=== PATIENT | male | born 1940 | race Caucasian/White ===

== ENCOUNTER 2017-06-10 16:51 | Inpatient (IN) ==
[2017-06-10] MEDS ORDERED: Acetaminophen 325 MG TABLET PO PRN (21:03)
[2017-06-10] MEDS ORDERED: Naloxone 0.4 MG/ML INJ IVP PRN (21:03)
[2017-06-10] MEDS ORDERED: Dextrose Gel 15 GM/37.5 ML TUBE PO PRN ×2 (21:07)
[2017-06-10] MEDS ORDERED: D5% in Water 1,000 ML IVC PRN (21:07)
[2017-06-10] MEDS ORDERED: *HR* Dextrose 50 % in Water (Syg) 50 ML SYRINGE IVP PRN (21:07)
[2017-06-10] MEDS ORDERED: Ipratropium/Albuterol Neb 3 ML IH PRN (21:10)
[2017-06-10] MEDS: Apixaban 5 MG TABLET PO SCH (21:44)
[2017-06-10] MEDS: Furosemide 40 MG/4 ML VIAL IVP SCH (21:44)
--- NOTE | 2017-06-10 22:38 | Internal Med History&Physical ---
Date of Encounter: 06/10/17 Time of Encounter: 20:00 Internal Medicine - H&P: HPI Chief complaint: Shortness of breath Admitted From: Intrahospital Transfer Plans for Post Hospital Care: Home History of present illness: Mr. Kim is a 76 year old male transferred from [facility]. He presented to [facility] for shortness of breath for 3-4 days. Past medical history is significant for CHF with LVEF 20%, COPD, hyperlipidemia, CAD S/P CABG , diabetes. Patient is said shortness of breath started 3-4 days ago. Patient has nonproductive cough. Denies fever, chest pain, nausea, or diaphoresis. Patient has increased leg swelling but no significant body weight change. In [facility], he was treated with Lasix for CHF exacerbation. Patient also was found CO2 retention with PaCO2 81.9 and Ph 7.27. He was treated with BiPAP and bronchodilator and his ABG has improved to 7.35/61.6. Patient was a found newly developed A. fib in [facility], Eliquis was started. When I saw patient in the ICU, he said his symptoms of shortness of breath has significantly improved. Patient transferred to our hospital because of extremely low LVEF may need close monitor and further management by cardiology. Past Med Surg Social Fam HX - Past Medical History Medical history: COPD, coronary artery disease, diabetes, hyperlipidemia, hypertension, myocardial infarction, other Psychiatric history: no psych history - Past Surgical History Surgical History: coronary bypass (CABG), other - Social History Smoking Status: Former smoker Smokeless Tobacco Status: No Alcohol use: none Drug use: none - Family History Mother History Unknown: Yes Internal Medicine - H&P: Meds 3 Allergy/AdvReac Type Severity Reaction Status Date / Time lovastatin [From Mevacor] AdvReac See Verified 08/05/15 08:16 Comments All Systems PM: A 10-system review of systems was performed and is negative for pertinent findings except as documented above in the HPI. - Constitutional Vitals: Temp Pulse Resp BP Pulse Ox 98.3 F 84 14 103/73 97 06/10/17 19:30 06/10/17 22:00 06/10/17 22:00 06/10/17 22:00 06/10/17 22:00 General appearance: Present: A&O X 3, no acute distress, answers questions appropriately - Head Head exam: Present: atraumatic, normocephalic - Eye Eye exam: Present: PERRL, conjuntiva pink, sclera anicteric Pupils: Present: PERRL - Neck Neck exam general surgery: Present: supple, trachea midline. Absent: lymphadenopathy - Respiratory Respiratory exam: Present: CTAB. Absent: accessory muscle use, rales, rhonchi, wheezes - Cardiovascular Cardiovascular exam: Present: irregular rhythm, +S1, +S2. Absent: diastolic murmur, gallop, rubs, systolic murmur - GI/Abdominal GI/Abdominal exam: Present: normal bowel sounds, soft, no peritoneal signs. Absent: distended, tenderness - Extremities Exam Extremities exam: Present: pedal edema (Mild pedal edema bilaterally), warm, radial pulses palpable and symmetrical. Absent: calf tenderness, cyanotic - Neurological Exam Neurological exam: Present: CN II-XII intact, oriented X3, no focal deficits. Absent: pronater drift, facial droop, speech deficit - Skin Skin exam: Present: dry, intact - Assessment and plan (1) CHF exacerbation Current Visit: Yes Status: Acute Assessment and plan: Patient has increased shortness of breath. History of systolic CHF with LVEF 20 %. Has increased legs edema. Consider CHF exacerbation. - Place patient on continuous cardiac monitoring - Lasix 40 mg IV twice a day - Strict I and O - Fluid restriction 1500 ml a day - Repeat echocardiogram - Cardiology consult - We will resume beta pascual and ARB after medication verification. Patient is not on PPM/AICD Qualifiers: Heart failure type: systolic Qualified Code(s): I50.23 - Acute on chronic systolic (congestive) heart failure (2) COPD exacerbation Current Visit: Yes Status: Acute Assessment and plan: Patient has shows CO2 retention earlier. Improved after BiPAP. Patient has no wheezing on exam when I saw patient. - Place patient on DuoNeb scheduled and when necessary - We will hold steroid as patient has no wheezing at this point - BiPAP as needed, closely monitor patient (3) Diabetes Current Visit: Yes Status: Acute Qualifiers: Diabetes mellitus type: type 2 Diabetes mellitus jail insulin use: without jail use Diabetes mellitus complication status: without complication Qualified Code(s): E11.9 - Type 2 diabetes mellitus without complications (4) Hypertension Current Visit: Yes Status: Acute Assessment and plan: BP is not high at this point. Resume home medication after verification Qualifiers: Hypertension type: essential hypertension Qualified Code(s): I10 - Essential (primary) hypertension (5) CAD (coronary artery disease) Current Visit: Yes Status: Acute Assessment and plan: Denies chest pain. Continue close monitoring and resume home medication after verification Qualifiers: Coronary Disease-Associated Artery/Lesion type: bypass graft [place] vs. transplanted heart: [place] heart Associated angina: without angina Qualified Code(s): I25.810 - Atherosclerosis of coronary artery bypass graft(s) without angina pectoris (6) DVT prophylaxis Current Visit: Yes Status: Acute Assessment and plan: Patient is on Eliquis (7) New onset a-fib Current Visit: Yes Status: Acute Assessment and plan: Patient has no history of A. fib. Newly developed A. fib. Heart rate is well controlled. Add metoprolol 12.5 mg by mouth twice a day at this point for rate control. Continue Eliquis for anticoagulation - Time Spent With Patient Total time spent is greater than 50% in coordination of care (as documented) at patient's floor/unit and/or counseling patient: 40 min Greater than 35 minutes
[2017-06-11] MEDS: Ipratropium/Albuterol Neb 3 ML IH SCH ×4 (03:38→21:20)
[2017-06-11 04:46] LABS: Basophils % 0.1 %; Hematocrit 41.5 % (37.5-50.1); Hemoglobin 12.8 g/dL (12.9-16.9); Immature Granulocytes % 0.7 % (0-4); Lymphocytes # 1.1 K/mcL (0.6-4.6); Mean Corpuscular HGB Conc 30.8 g/dL (31.6-35.5); Mean Corpuscular Hemoglobin 24.8 pg (28.0-33.3); Mean Corpuscular Volume 80.3 fL (83.0-100.0); Mean Platelet Volume 10.6 fL (9.4-12.4); Monocytes # 0.5 K/mcL (0.0-1.3); Monocytes % 5.1 %; Neutrophils # 8.5 K/mcL (1.6-8.9); Platelet Count 209 K/mcL (140-400); Red Blood Count 5.17 M/mcL (4.19-5.50); Segmented Neutrophils % 83.1 %
[2017-06-11 05:10] LABS: BUN/Creatinine Ratio 31 (6-26); Blood Urea Nitrogen 43 mg/dL (8-23); Calcium 8.9 mg/dL (8.6-10.3); Carbon Dioxide 30 mEq/L (23-29); Chloride 101 mEq/L (98-107); Glucose 189 mg/dL (70-105); Magnesium 2.1 mg/dL (1.6-2.6); Osmolality,Calculated 300 (280-300); Potassium 5.4 mEq/L (3.5-5.1); Sodium 137 mEq/L (136-145); eGFR For African Americans > 60 (> 60); eGFR For Non-African Americans 50 (> 60)
--- NOTE | 2017-06-11 07:41 | Pulmonology Consult Note ---
<Sabas Rivera - Last Filed: 06/11/17 12:52> Date of Encounter: 06/11/17 Time of Encounter: 08:31 Assessment and Plan (1) New onset a-fib Current Visit: Yes Status: Acute Telemetry without evidence of new onset atrial fibrillation. Patient is currently rate controlled a beta pascual which we changed to Coreg 12.5 mg twice daily. Patient has been started on anticoagulation with Eliquis Cardiology consultation. (2) CHF exacerbation Current Visit: Yes Status: Acute Patient with acute exacerbation of congestive heart failure. Repeat echocardiogram on 06/10/17 demonstrates ejection fraction of 25% with severe global systolic dysfunction. Continue IV diuresis Lasix 40 mg twice daily. Strict I/Os Resume home beta pascual at half dose. Qualifiers: Heart failure type: systolic Qualified Code(s): I50.23 - Acute on chronic systolic (congestive) heart failure (3) Diabetes Current Visit: Yes Status: Acute Sliding-scale insulin coverage Qualifiers: Diabetes mellitus type: type 2 Diabetes mellitus care home insulin use: without care home use Diabetes mellitus complication status: without complication Qualified Code(s): E11.9 - Type 2 diabetes mellitus without complications (4) Hypertension Current Visit: Yes Status: Acute Holding home will [place] due to RICKY. Qualifiers: Hypertension type: essential hypertension Qualified Code(s): I10 - Essential (primary) hypertension (5) CAD (coronary artery disease) Current Visit: Yes Status: Acute Prior history of CABG. Currently anticoagulated on Eliquis given new onset atrial fibrillation. Continue aspirin daily. Continue statin. Cardiology consultation. Qualifiers: Coronary Disease-Associated Artery/Lesion type: bypass graft [place] vs. transplanted heart: [place] heart Associated angina: without angina Qualified Code(s): I25.810 - Atherosclerosis of coronary artery bypass graft(s) without angina pectoris (6) DVT prophylaxis Current Visit: Yes Status: Acute Patient on Eliquis History of Present Illness Consult date: 06/11/17 Requesting physician: Jim Molina Reason for consult: other (A. fib, CHF, respiratory failure) Chief complaint: New-onset atrial fibrillation History of present illness: is a 76-year-old male with a past medical history of congestive heart failure, CABG, diabetes who presented to [facility] on 06/09/17 with a complaint of dyspnea. He was noted to appear volume overloaded at that time and was admitted for CHF exacerbation. During his stay he was also noted to have atrial fibrillation which she reports is new. During his time there he had a workup including an echocardiogram which revealed an ejection fraction of 20% which was down from 30% last year by echo. The patient was subsequently transferred here for evaluation as the family requested as well as for cardiology consultation. He did require BiPAP therapy while at the other facility. The patient was admitted overnight. Upon evaluation this morning the patient is on nasal cannula in no distress, much better he feels. He has no complaints at this time. Past Med Surg Social Fam HX - Past Medical History Attestation: Yes The following information was validated with the patient. Source: patient Medical history: COPD, coronary artery disease, diabetes, hyperlipidemia, hypertension, myocardial infarction, other Psychiatric history: no psych history - Past Surgical History Surgical History: coronary bypass (CABG), other - Social History Smoking Status: Former smoker Smokeless Tobacco Status: No Alcohol use: none Drug use: none - Family History Mother History Unknown: Yes Medications and Allergies Albuterol Sulfate [Ventolin Hfa] 2 puff IH Q6H PRN 06/11/17 [History] Aspirin [Lo-Dose Aspirin EC] 81 mg PO DAILY 06/11/17 [History] Atorvastatin [Lipitor] 40 mg PO HS 06/11/17 [History] Carvedilol [Coreg] 25 mg PO BID 06/11/17 [History] Losartan Potassium [Cozaar] 100 mg PO DAILY 06/11/17 [History] Multivitamin [One Daily Essential] 1 tab PO DAILY 06/11/17 [History] [place]-3/Dha/Epa/Fish Oil [Fish Oil 1,000 mg Softgel] 1 cap PO TID 06/11/17 [ History] hydroCHLOROthiazide [Hydrochlorothiazide] 50 mg PO DAILY 06/11/17 [History] metFORMIN [Glucophage] 500 mg PO BIDWM 06/11/17 [History] 3 Allergy/AdvReac Type Severity Reaction Status Date / Time lovastatin [From Mevacor] AdvReac See Verified 06/11/17 09:08 Comments All Systems: The remainder of the systems were reviewed and are negative - Constitutional Constitutional: as per HPI - EENT Eyes: as per HPI Ears: as per HPI Nose, mouth and throat: as per HPI - Cardiovascular Cardiovascular: as per HPI, dyspnea, dyspnea on exertion, leg edema, orthopnea, no chest pain - Respiratory Respiratory: as per HPI, dyspnea, dyspnea on exertion, other (Orthopnea), no cough - Gastrointestinal Gastrointestinal: as per HPI - Genitourinary Genitourinary: as per HPI - Integumentary Integumentary: as per HPI - Neurological Neurological: as per HPI - Psychiatric Psychiatric: as per HPI - Endocrine Endocrine: as per HPI - Hematologic/Lymphatic Hematologic/Lymphatic: as per HPI - Allergic/Immunologic Allergic/Immunologic: as per HPI Physical Examination Vital Signs: Vital Signs, Last 4 Hours Temp Pulse Resp BP Pulse Ox 06/11/17 07:00 88 20 119/93 90 06/11/17 06:00 92 21 117/86 96 06/11/17 05:00 85 14 114/71 93 06/11/17 04:00 97.7 F 73 26 129/89 95 General appearance: no acute distress Eyes: nonicteric Effort: normal Inspection: normal Auscultation: bilateral: diminished breath sounds Cardiovascular: irregular rhythm Gastrointestinal: soft, non-tender, non-distended Integumentary: normal Extremities: edema (1+ bilateral pitting edema of the lower extremities), other (Venous stasis changes to the lower extremities) Musculoskeletal: no deformities normal mental status mood appropriate Results - Laboratory Findings CBC and BMP: 06/11/17 04:23 06/11/17 04:23 Abnormal lab findings: Abnormal lab results Hgb 12.8 g/dL (12.9-16.9) L 06/11/17 04:23 MCV 80.3 fL (83.0-100.0) L 06/11/17 04:23 MCH 24.8 pg (28.0-33.3) L 06/11/17 04:23 MCHC 30.8 g/dL (31.6-35.5) L 06/11/17 04:23 Potassium 5.4 mEq/L (3.5-5.1) H 06/11/17 04:23 Carbon Dioxide 30 mEq/L (23-29) H 06/11/17 04:23 BUN 43 mg/dL (8-23) H 06/11/17 04:23 Creatinine 1.40 mg/dL (0.70-1.30) H 06/11/17 04:23 Est GFR (Non-Af Amer) 50 (> 60) L 06/11/17 04:23 BUN/Creatinine Ratio 31 (6-26) H 06/11/17 04:23 Glucose 189 mg/dL (70-105) H 06/11/17 04:23 POC Glucose 178 mg/dL (70-99) H 06/10/17 19:45 B-Natriuretic Peptide 192 pg/mL (Less than 100) H 06/11/17 04:23 - Diagnostic Findings Chest x-ray: report reviewed - Clinical Findings Intake & Output: Intake & Output 06/10/17 06/10/17 06/11/17 15:59 23:59 07:59 Output Total 625 / 625 650 / 650 Balance -625 / -625 -650 / -650 Weight 100.8 kg 100.8 kg Consult Discharge Plan - Plan Referrals: Tawny Ahumada, [employer] [Primary Care Provider] - <Sheila Holloway - Last Filed: 06/11/17 16:34> Date of Encounter: 06/11/17 All Systems: The remainder of the systems were reviewed and are negative Physical Examination Vital Signs: Vital Signs, Last 4 Hours Temp Pulse Resp BP Pulse Ox 06/11/17 16:03 98.2 F 110 16 105/71 93 06/11/17 15:31 18 93 Results - Laboratory Findings CBC and BMP: 06/11/17 04:23 06/11/17 04:23 Abnormal lab findings: Abnormal lab results Hgb 12.8 g/dL (12.9-16.9) L 06/11/17 04:23 MCV 80.3 fL (83.0-100.0) L 06/11/17 04:23 MCH 24.8 pg (28.0-33.3) L 06/11/17 04:23 MCHC 30.8 g/dL (31.6-35.5) L 06/11/17 04:23 Potassium 5.4 mEq/L (3.5-5.1) H 06/11/17 04:23 Carbon Dioxide 30 mEq/L (23-29) H 06/11/17 04:23 BUN 43 mg/dL (8-23) H 06/11/17 04:23 Creatinine 1.40 mg/dL (0.70-1.30) H 06/11/17 04:23 Est GFR (Non-Af Amer) 50 (> 60) L 06/11/17 04:23 BUN/Creatinine Ratio 31 (6-26) H 06/11/17 04:23 Glucose 189 mg/dL (70-105) H 06/11/17 04:23 POC Glucose 121 mg/dL (70-99) H 06/11/17 11:20 B-Natriuretic Peptide 192 pg/mL (Less than 100) H 06/11/17 04:23 - Clinical Findings Intake & Output: Intake & Output 06/11/17 06/11/17 06/11/17 07:59 15:59 23:59 Intake Total 976 / 976 Output Total 650 / 650 425 / 425 200 / 200 Balance -650 / -650 551 / 551 -200 / -200 Weight 100.8 kg - Attending Attestation I examined this patient and my medical decision-making was reviewed with the Resident Physician. I agree with the documented findings, disposition and treatment plan as described except to the extent set forth below. Patient seen and examined. Labs, radiology, chart personally reviewed. Agree with resident's history and physical, assessment, plan with following comments: TRANSFORMATION ANALYST: Patient follows commands, Pulmonary: Acceptable oxygenation and ventilation noninvasive ventilation when necessary Cardiovascular: Patient with cardiomyopathy and atrial fibrillation which seems to be rate control. Cardiology follow-up and says he patient GI: Nutrition per dietary and GI prophylaxis per routine Heme: DVT prophylaxis per routine Renal; urine out put and renal funtion reviewed Endorcine: blood glucose is monitored Lines: all lines checked and no evidence of infections Skin: skin care to prevent pressure ulcers per nursing routine care
[2017-06-11] MEDS: Furosemide 40 MG/4 ML VIAL IVP SCH ×2 (08:50→21:42)
[2017-06-11] MEDS: Apixaban 5 MG TABLET PO SCH ×2 (08:50→21:40)
[2017-06-11] MEDS: Insulin LISPRO 300 UNITS/3 ML VIAL SQ SCH ×4 (09:00→21:43)
--- NOTE | 2017-06-11 14:21 | Cardiology Consult Note ---
<Daxa Acevedo Marlin - Last Filed: 06/11/17 14:48> Date of Encounter: 06/11/17 Time of Encounter: 13:00 Assessment and Plan (1) CHF exacerbation Current Visit: Yes Status: Acute Acute on chronic systolic CHF; NYHA class III symptoms. LVEF 30% per TTE 2016; last LVEF assessment June 2016 (Cardiac MRI) EF 37%. Admits to dietary noncompliance, was unaware of CHF dx. Appears volume overload upon exam. Agree with IV lasix. Continue betablocker, ARB. Strict I&O's, daily weights, Na/fluid restricted diet. Will repeat TTE. Qualifiers: Heart failure type: systolic Qualified Code(s): I50.23 - Acute on chronic systolic (congestive) heart failure (2) CAD (coronary artery disease) Current Visit: Yes Status: Acute Hx of CAD s/p CABG in 1991. Last ischemic eval 2016 (stress)--negative for ischemia, positive for large infarct. Repeat TTE pending. Continue asa, statin, BB. Given new onset afib, will likely require ischemic evaluation prior to discharge. Plan for [facility] on Wednesday if respiratory status will allow. Qualifiers: Coronary Disease-Associated Artery/Lesion type: bypass graft [place] vs. transplanted heart: [place] heart Associated angina: without angina Qualified Code(s): I25.810 - Atherosclerosis of coronary artery bypass graft(s) without angina pectoris (3) New onset a-fib Current Visit: Yes Status: Acute New onset afib, chronicity unclear. Patient is rate controlled on oral betablockade. Started on Eliquis for AC. Discussion w patient/family: The assessment and plan as outlined above was discussed with the patient and/or family members who expressed understanding and agreement. All questions were answered. Thank you for involving us in the care of your patient. Please call with any questions. History of Present Illness Consult date: 06/11/17 Requesting physician: Jim Molina Consult reason: CHF Chief complaint: Shortness of breath History of present illness: Mr. Kim is a 76 year old male with PMHx significant for CAD s/p CABG (1991) , systolic CHF, COPD, HLD, and DMII who presented to the [facility] ICU as a transfer from [place] due to respiratory failure. Patient was transferred upon request of family. He reports carbon monoxide poisoning 3 weeks ago due to a faulty furnace; states that he has not recovered--fatigue, weakness, and shortness of breath. He called the [facility] to inspect his heater again, and it was working appropriately. Patient was then taken to [place] because of ill appearance. Patient is noted to be a poor historian, he is unaware of his CHF diagnosis, has not restricted diet or Na intake. Patient was found to have newly discovered atrial fibrillation (rate controlle) and was started on Eliquis. Was also diagnosed with acute hypercarbic respiratory failure, acute on chronic CHF, & COPD exacerbation. Bedside echo was completed by physician and demonstrated LVEF 20%. Prior CV testing: TTE 03/2016: LVEF 30%, mild LVDD Regadenoson nuclear 04/2016: LVEF 33%, dilated LV, positive for large infarct (inferior, inferior lateral, and apex), negative for reversible ischemia Cardiac MRI 06/2016: EF 37% Past Med Surg Social Fam HX - Past Medical History Medical history: atrial fibrillation, cardiomyopathy, CHF, COPD, coronary artery disease, diabetes, hyperlipidemia, hypertension, myocardial infarction, other Psychiatric history: no psych history - Past Surgical History Surgical History: coronary bypass (CABG), other - Social History Smoking Status: Former smoker Smokeless Tobacco Status: No Alcohol use: none Drug use: none - Family History Mother History Unknown: Yes Medications and Allergies Albuterol Sulfate [Ventolin Hfa] 2 puff IH Q6H PRN 06/11/17 [History] Aspirin [Lo-Dose Aspirin EC] 81 mg PO DAILY 06/11/17 [History] Atorvastatin [Lipitor] 40 mg PO HS 06/11/17 [History] Carvedilol [Coreg] 25 mg PO BID 06/11/17 [History] Losartan Potassium [Cozaar] 100 mg PO DAILY 06/11/17 [History] Multivitamin [One Daily Essential] 1 tab PO DAILY 06/11/17 [History] [place]-3/Dha/Epa/Fish Oil [Fish Oil 1,000 mg Softgel] 1 cap PO TID 06/11/17 [ History] hydroCHLOROthiazide [Hydrochlorothiazide] 50 mg PO DAILY 06/11/17 [History] metFORMIN [Glucophage] 500 mg PO BIDWM 06/11/17 [History] 3 Allergy/AdvReac Type Severity Reaction Status Date / Time lovastatin [From Mevacor] AdvReac See Verified 06/11/17 09:08 Comments All Systems Review: The remainder of the systems were reviewed and are negative - Cardiovascular Cardiovascular: as per HPI Physical Examination Vital Signs, Last 4 Hours Temp Pulse Resp BP Pulse Ox 06/11/17 11:24 16 91 06/11/17 11:12 98.1 F 85 16 122/73 91 General: Conversant, Other (appears chronically ill) HEENT: Atraumatic, Normocephaly Cardiac: Other (irregularly irregular) Lungs: Other (Decreased bibasilar) Neuro: Alert and responsive Abdomen: Soft Skin: No rashes noted on visualized skin Musculoskeletal: No Chest Wall Tenderness Extremities: Other (redness/scabs/seeping LE, +2 edema) Results 06/11/17 04:23 06/11/17 04:23 Lab Results 06/11/17 06/11/17 06/11/17 04:23 04:23 04:23 WBC 10.2 Hgb 12.8 L Hct 41.5 Plt Count 209 Sodium 137 Potassium 5.4 H Chloride 101 Carbon Dioxide 30 H BUN 43 H Creatinine 1.40 H Glucose 189 H Calcium 8.9 Magnesium 2.1 B-Natriuretic Peptide 192 H Active Medications Acetaminophen (Tylenol) 650 mg PO Q6HR PRN PRN Reason: Mild Pain/Fever Stop: 12/10/17 21:04 Albuterol/Ipratropium (Duoneb) 3 ml IH [id number] PRN PRN Reason: Shortness Of Breath/Wheezing Stop: 12/10/17 21:11 Albuterol/Ipratropium (Duoneb) 3 ml IH [id number] LAQUITA Stop: 12/11/17 04:01 Last Admin: 06/11/17 11:23 Dose: 3 ml Apixaban (Eliquis) 5 mg PO BID LAQUITA Stop: 12/10/17 21:16 Last Admin: 06/11/17 08:50 Dose: 5 mg Aspirin (Aspirin Ec) 81 mg PO DAILY [facility] Stop: 12/12/17 09:01 Atorvastatin Calcium (Lipitor) 40 mg PO HS [facility] Stop: 12/11/17 21:01 Carvedilol (Coreg) 12.5 mg PO BIDWM LAQUITA PRN Reason: Protocol Stop: 12/12/17 08:01 Dextrose/Water (Dextrose 50% (Syg)) 25 ml IVP AD PRN PRN Reason: Hypoglycemia Stop: 12/10/17 21:08 Furosemide (Lasix) 40 mg IVP BID LAQUITA Stop: 12/10/17 21:16 Last Admin: 06/11/17 08:50 Dose: 40 mg Glucagon (Glucagen) 1 mg IM ONCE PRN PRN Reason: Hypoglycemia Stop: 12/10/17 21:08 Glucose (Gluctose) 15 gm PO ONCE PRN PRN Reason: Hypoglycemia Stop: 12/10/17 21:08 Glucose (Gluctose) 30 gm PO ONCE PRN PRN Reason: Hypoglycemia Stop: 12/10/17 21:08 Dextrose (Dextrose 5%) 1,000 mls @ 100 mls/hr IVC .Q10H PRN PRN Reason: HYPOGLYCEMIA Stop: 12/10/17 21:08 Insulin Human Lispro (Humalog) 0 units SQ HS LAQUITA PRN Reason: Protocol Stop: 12/11/17 21:01 Insulin Human Lispro (Humalog) 0 units SQ TIDAC LAQUITA PRN Reason: Protocol Stop: 12/11/17 07:31 Last Admin: 06/11/17 11:24 Dose: Not Given Metoprolol Tartrate (Lopressor) 12.5 mg PO BID [facility] Stop: 06/11/17 23:00 Last Admin: 06/11/17 08:48 Dose: 12.5 mg Multivitamins/Calcium (Thera M Plus) 1 tab PO DAILY [facility] Stop: 12/12/17 09:01 Naloxone HCl (Narcan) 0.4 mg IVP Q2MIN PRN PRN Reason: SEE COMMENTS Stop: 12/10/17 21:04 Pharmacy Profile Note (Patient Taking Own Medication) 0 each PO TID [facility] Stop: 12/11/17 15:01 - Imaging and Cardiology Stress Test: report reviewed Echo: report reviewed - EKG Interpretation EKG results cardiology: personally reviewed Consult Discharge Plan - Plan Referrals: aTwny Ahumada, RYLIE [Primary Care Provider] - <Isidro Anne - Last Filed: 06/13/17 19:25> Date of Encounter: 06/11/17 Time of Encounter: 18:30 - Attending Attestation I examined this patient and my medical decision-making was reviewed with the Resident Physician. I agree with the documented findings, disposition and treatment plan as described except to the extent set forth below. CC: shortness of breath Pt presented to [place] ER with complaint of fatigue and shortness of breath. He reports symptoms started three weeks ago with carbon monoxide poisoning from a faulty furnace. At that time he was observed overnight, and discharged to home after his furnace was repaired. He notes increased shortness of breath with exertion, now having inability to sleep flat, and shortness of breath at rest. He was found to be in A fib with RVR which he reports is new for him, and was transferred from [place] to [facility] for further management. He is not a reliable historian, hx obtained from medical record. He has known ischemic cardiomyopathy, last stress 04/2016, EF 33% with large inferior lateral scar consistent with previous PR, no reversible ischemia PMHx: reviewed PE: Pt seen and examined, agree with documentation IMP/Plan 1. Acute on chronic systolic heart failure, non compliant with fluid and dietary restrictions, responding to IV diuresis, echocardiogram ordered for evaluation of EF, new wall motion abnormalites. 2. CAD: severe three vessel CAD post CABG 1991, no ischemia on stress imaging 2016 3. A fib with RVR, ventricular response rate now controlled with beta blocade, started Eliquis for primary stroke risk reduction Will follow with you, further recommendations pending cardiac imaging. . Assessment and Plan Discussion w patient/family: The assessment and plan as outlined above was discussed with the patient and/or family members who expressed understanding and agreement. All questions were answered. Thank you for involving us in the care of your patient. Please call with any questions. History of Present Illness History of present illness: Mr. Kim is a 76 year old male All Systems Review: The remainder of the systems were reviewed and are negative Physical Examination Vital Signs, Last 4 Hours Pulse Resp BP Pulse Ox 06/13/17 17:33 112/62 06/13/17 17:31 112/62 06/13/17 16:00 79 15 81/49 94 06/13/17 15:39 16 94 Results 06/13/17 09:45 06/13/17 09:45 Lab Results 06/13/17 06/13/17 09:45 09:45 WBC 8.1 Hgb 13.4 Hct 44.1 Plt Count 257 Sodium 137 Potassium 4.5 Chloride 96 L Carbon Dioxide 37 H BUN 42 H Creatinine 1.24 Glucose 195 H Calcium 9.3
[2017-06-11] MEDS ORDERED: (Omega-3/Dha/Epa/Fish Oil [Fish Oil 1,000 Mg Softgel] PO SCH (15:00)
[2017-06-11] MEDS ORDERED: D5% in Water 1,000 ML IVC PRN (15:11)
[2017-06-11] MEDS ORDERED: Dextrose Gel 15 GM/37.5 ML TUBE PO PRN ×2 (15:11)
[2017-06-11] MEDS ORDERED: *HR* Dextrose 50 % in Water (Syg) 50 ML SYRINGE IVP PRN (15:11)
[2017-06-11] MEDS ORDERED: Naloxone 0.4 MG/ML INJ IVP PRN (15:11)
[2017-06-11] MEDS ORDERED: Ipratropium/Albuterol Neb 3 ML IH PRN (15:11)
[2017-06-11] MEDS ORDERED: Acetaminophen 325 MG TABLET PO PRN (15:11)
--- NOTE | 2017-06-11 20:38 | Internal Med Progress Note ---
Date of Encounter: 06/11/17 Time of Encounter: 11:00 - Assessment and plan (1) CHF exacerbation Current Visit: Yes Status: Acute Assessment and plan: Patient has increased shortness of breath. History of systolic CHF with LVEF 20 %. Has increased legs edema. Consider CHF exacerbation. - Place patient on continuous cardiac monitoring - Lasix 40 mg IV twice a day - Strict I and O - Fluid restriction 1500 ml a day - Repeat echocardiogram - Cardiology consult and appreciate recommendations Qualifiers: Heart failure type: systolic Qualified Code(s): I50.23 - Acute on chronic systolic (congestive) heart failure (2) COPD exacerbation Current Visit: Yes Status: Acute Assessment and plan: continue DuoNeb (3) Diabetes Current Visit: Yes Status: Acute Assessment and plan: Sliding scale insulin Qualifiers: Diabetes mellitus type: type 2 Diabetes mellitus care home insulin use: without care home use Diabetes mellitus complication status: without complication Qualified Code(s): E11.9 - Type 2 diabetes mellitus without complications (4) Hypertension Current Visit: Yes Status: Acute Assessment and plan: Continue home medication after verification Qualifiers: Hypertension type: essential hypertension Qualified Code(s): I10 - Essential (primary) hypertension (5) New onset a-fib Current Visit: Yes Status: Acute Assessment and plan: Patient has no history of A. fib. Newly developed A. fib. Heart rate is well controlled. Add metoprolol 12.5 mg by mouth twice a day at this point for rate control. Continue Eliquis for anticoagulation (6) DVT prophylaxis Current Visit: Yes Status: Acute Assessment and plan: Patient is on Eliquis - Time Spent With Patient Total time spent is greater than 50% in coordination of care (as documented) at patient's floor/unit and/or counseling patient: - Subjective Interval history: Patient with no issues or complaints this morning - Constitutional Vitals: Temp Pulse Resp BP Pulse Ox 98.4 F 106 18 126/74 93 06/11/17 19:37 06/11/17 19:37 06/11/17 19:37 06/11/17 19:37 06/11/17 19:37 General appearance: Present: A&O X 3, no acute distress, answers questions appropriately - Respiratory Respiratory exam: Present: CTAB. Absent: accessory muscle use, rales, rhonchi, wheezes - Cardiovascular Cardiovascular exam: Present: RRR, +S1, +S2. Absent: diastolic murmur, gallop, rubs, systolic murmur Internal Medicine: Result - Labs CBC & Chem 7: 06/11/17 04:23 06/11/17 04:23 Labs: Short CBC 06/11/17 Range/Units 04:23 WBC 10.2 (4.3-11.1) K/mcL Hgb 12.8 L (12.9-16.9) g/dL Hct 41.5 (37.5-50.1) % Plt Count 209 (140-400) K/mcL Neutrophils # 8.5 (1.6-8.9) K/mcL BMP 06/11/17 04:23 Sodium 137 Potassium 5.4 H Chloride 101 Carbon Dioxide 30 H BUN 43 H Creatinine 1.40 H Glucose 189 H Calcium 8.9 - Impressions Impressions Echocardiogram 06/11/17 22:40 Impressions: LVEF 25-30%. Mildly dilated left ventricle. Severe global and segmental left ventricular systolic dysfunction. Indeterminate diastolic function. Atypical septal motion consistent with post-operative status. Mildly dilated right ventricle. Mild right ventricular hypokinesis. Severely dilated left atrium. Mild mitral regurgitation. Unable to estimate RVSP due to lack of TR jet. Left Ventricular Wall Motion: Rest Echo Findings The apex, apical inferior, apical anterior, mid anterior, basal anterior, apical septal, mid inferior septal, basal inferior septal, apical lateral, mid anterior lateral, basal anterior lateral, mid anterior septal, mid inferior lateral, basal anterior septal and basal inferior lateral garcia were hypokinetic. The mid inferior and basal inferior garcia were akinetic. Findings: Study Quality * Technically adequate exam. ECG Findings * Atrial fibrillation, BBB. Left Ventricle * LVEF 25-30%. * Mildly dilated left ventricle. * Severe global and segmental left ventricular systolic dysfunction. * Indeterminate diastolic function. * Atypical septal motion consistent with post-operative status. Right Ventricle * Mildly dilated right ventricle. * Mild right ventricular hypokinesis. Left Atrium * Severely dilated left atrium. Right Atrium * Moderately dilated right atrium. Aortic Valve * Trileaflet aortic valve with normal function. * No aortic regurgitation. * No aortic stenosis. Mitral Valve * Normal mitral valve structure. * Mild mitral regurgitation. * No mitral stenosis. Tricuspid Valve * Normal tricuspid valve structure and function. * No tricuspid regurgitation. * Unable to estimate RVSP due to lack of TR jet. Pulmonic Valve * Normal pulmonic valve structure and function. * No pulmonic regurgitation. Aorta * Dilated sinuses of valsalva measuring 4.0 cm. Pericardium * The pericardium appears normal. IVC * Normal IVC dimensions and inspiratory collapse. Pulmonary Artery * Normal visualized portions of the main pulmonary artery. Consult Discharge Plan - Plan Referrals: Tawny Ahumada CNP [Primary Care Provider] -
[2017-06-11] MEDS ORDERED: Insulin LISPRO 300 UNITS/3 ML VIAL SQ SCH (21:00)
[2017-06-11] MEDS: Patient Taking Own Medication 1 EACH PO SCH (23:18)
[2017-06-12] MEDS: Ipratropium/Albuterol Neb 3 ML IH SCH ×4 (03:58→21:37)
[2017-06-12] MEDS ORDERED: Multivit/Ca/Min/Fe/FA 1 TAB TABLET PO SCH (09:00)
[2017-06-12] MEDS ORDERED: Aspirin Enteric Coated 81 MG Tablet PO SCH (09:00)
--- NOTE | 2017-06-12 09:17 | Cardiology Progress Note ---
Date of Encounter: 06/12/17 Time of Encounter: 09:20 Assessment and Plan (1) CHF exacerbation Current Visit: Yes Status: Acute Acute on chronic systolic CHF; NYHA class III symptoms. LVEF 30% per TTE 2016; last LVEF assessment June 2016 (Cardiac MRI) EF 37%. Repeat TTE this admission: LVEF 25-30%, mildly dilated LV, severe global and segmental LV systolic dysfunction, severely dilated LA, mild MR Admits to dietary noncompliance, was unaware of CHF dx. Appears volume overload upon exam. Cumulative I&O: -1164 mL. Agree with IV lasix. Continue betablocker, ARB. Strict I&O's, daily weights, Na/fluid restricted diet. Plan for [facility] on Wednesday if renal function/respiratory status will allow. Qualifiers: Heart failure type: systolic Qualified Code(s): I50.23 - Acute on chronic systolic (congestive) heart failure (2) CAD (coronary artery disease) Current Visit: Yes Status: Acute Hx of CAD s/p CABG in 1991. Last ischemic eval 2016 (stress)--negative for ischemia, positive for large infarct. Repeat TTE pending. Continue asa, statin, BB. Given new onset afib, will likely require ischemic evaluation prior to discharge. Plan for [facility] on Wednesday if respiratory status will allow. Qualifiers: Coronary Disease-Associated Artery/Lesion type: bypass graft [place] vs. transplanted heart: [place] heart Associated angina: without angina Qualified Code(s): I25.810 - Atherosclerosis of coronary artery bypass graft(s) without angina pectoris (3) New onset a-fib Current Visit: Yes Status: Acute New onset afib, chronicity unclear. Patient is rate controlled on oral betablockade. Started on Eliquis for AC--hold after PM dose tonight for possible LHC on Wednesday. Discussion w patient/family: The assessment and plan as outlined above was discussed with the patient and/or family members who expressed understanding and agreement. All questions were answered. Thank you for involving us in the care of your patient. Please call with any questions. Subjective Principal diagnosis: CHF, AFib, CAD Interval history: Seen and examined. Breathing improved, not yet at baseline. Still with significant LE edema. Objective Vital Signs, Last 4 Hours Temp Pulse Resp BP Pulse Ox 06/12/17 07:09 97.9 F 86 17 137/91 97 General: Conversant, No Apparent Distress HEENT: Atraumatic, Normocephaly, Mucus Membranes Moist Cardiac: Other (irregularly irregular) Lungs: Other (Bibasilar rales) Neuro: Alert and responsive Abdomen: Soft Skin: No rashes noted on visualized skin Musculoskeletal: No Chest Wall Tenderness Extremities: Other (+2-3 BLE edema to knees, scabs) Results 06/11/17 04:23 06/11/17 04:23 Active Medications Acetaminophen (Tylenol) 650 mg PO Q6HR PRN PRN Reason: Mild Pain/Fever Stop: 12/10/17 21:04 Albuterol/Ipratropium (Duoneb) 3 ml IH [id number] PRN PRN Reason: Shortness Of Breath/Wheezing Stop: 12/10/17 21:11 Albuterol/Ipratropium (Duoneb) 3 ml IH [id number] LAQUITA Stop: 12/11/17 04:01 Last Admin: 06/12/17 03:58 Dose: 3 ml Apixaban (Eliquis) 5 mg PO BID [facility] Stop: 12/10/17 21:16 Last Admin: 06/11/17 21:40 Dose: 5 mg Aspirin (Aspirin Ec) 81 mg PO DAILY [facility] Stop: 12/12/17 09:01 Atorvastatin Calcium (Lipitor) 40 mg PO HS [facility] Stop: 12/11/17 21:01 Last Admin: 06/11/17 21:40 Dose: 40 mg Carvedilol (Coreg) 25 mg PO BID LAQUITA PRN Reason: Protocol Stop: 12/11/17 22:16 Last Admin: 06/11/17 23:26 Dose: 25 mg Dextrose/Water (Dextrose 50% (Syg)) 25 ml IVP AD PRN PRN Reason: Hypoglycemia Stop: 12/10/17 21:08 Furosemide (Lasix) 40 mg IVP BID [facility]ITA Stop: 12/10/17 21:16 Last Admin: 06/11/17 21:42 Dose: 40 mg Glucagon (Glucagen) 1 mg IM ONCE PRN PRN Reason: Hypoglycemia Stop: 12/10/17 21:08 Glucose (Gluctose) 15 gm PO ONCE PRN PRN Reason: Hypoglycemia Stop: 12/10/17 21:08 Glucose (Gluctose) 30 gm PO ONCE PRN PRN Reason: Hypoglycemia Stop: 12/10/17 21:08 Dextrose (Dextrose 5%) 1,000 mls @ 100 mls/hr IVC .Q10H PRN PRN Reason: HYPOGLYCEMIA Stop: 12/10/17 21:08 Insulin Human Lispro (Humalog) 0 units SQ HS LAQUITA PRN Reason: Protocol Stop: 12/11/17 21:01 Last Admin: 06/11/17 21:43 Dose: Not Given Insulin Human Lispro (Humalog) 0 units SQ TIDAC LAQUITA PRN Reason: Protocol Stop: 12/11/17 07:31 Last Admin: 06/11/17 16:19 Dose: Not Given Losartan Potassium (Cozaar) 100 mg PO DAILY [facility] Stop: 12/11/17 22:16 Last Admin: 06/11/17 23:26 Dose: 100 mg Multivitamins/Calcium (Thera M Plus) 1 tab PO DAILY [facility] Stop: 12/12/17 09:01 Naloxone HCl (Narcan) 0.4 mg IVP Q2MIN PRN PRN Reason: SEE COMMENTS Stop: 12/10/17 21:04 Pharmacy Profile Note (Patient Taking Own Medication) 0 each PO TID [facility] Stop: 12/11/17 15:01 Last Admin: 06/11/17 23:18 Dose: Not Given - Imaging and Cardiology Echo: report reviewed Other Results: 12 hour tele: avg HR=88 afib. - EKG Interpretation EKG results cardiology: personally reviewed Consult Discharge Plan - Plan Referrals: Tawny Ahumada, BISCUIT [employer]ER [Primary Care Provider] -
[2017-06-12 09:35] LABS: Basophils % 0.2 %; Eosinophils # 0.1 K/mcL (0.0-0.6); Eosinophils % 0.6 %; Hemoglobin 12.8 g/dL (12.9-16.9); Immature Granulocytes % 0.2 % (0-4); Lymphocytes # 2.1 K/mcL (0.6-4.6); Mean Corpuscular HGB Conc 29.8 g/dL (31.6-35.5); Mean Corpuscular Hemoglobin 24.4 pg (28.0-33.3); Mean Corpuscular Volume 81.9 fL (83.0-100.0); Mean Platelet Volume 10.2 fL (9.4-12.4); Monocytes # 0.8 K/mcL (0.0-1.3); Monocytes % 9.5 %; Neutrophils # 5.8 K/mcL (1.6-8.9); Platelet Count 249 K/mcL (140-400); Red Blood Count 5.25 M/mcL (4.19-5.50); Red Cell Distribution Width 14.3 % (11.5-14.5); Segmented Neutrophils % 65.5 %
[2017-06-12 09:50] LABS: BUN/Creatinine Ratio 37 (6-26); Blood Urea Nitrogen 47 mg/dL (8-23); Calcium 9.1 mg/dL (8.6-10.3); Carbon Dioxide 37 mEq/L (23-29); Chloride 97 mEq/L (98-107); Glucose 198 mg/dL (70-105); Osmolality,Calculated 300 (280-300); Potassium 4.9 mEq/L (3.5-5.1); Sodium 136 mEq/L (136-145); eGFR For African Americans > 60 (> 60); eGFR For Non-African Americans 56 (> 60)
[2017-06-12] MEDS: Apixaban 5 MG TABLET PO SCH (10:22)
[2017-06-12] MEDS: Multivit/Ca/Min/Fe/FA 1 TAB TABLET PO SCH (10:22)
[2017-06-12] MEDS: Aspirin Enteric Coated 81 MG Tablet PO SCH (10:23)
[2017-06-12] MEDS: Furosemide 40 MG/4 ML VIAL IVP SCH ×2 (10:23→23:28)
[2017-06-12] MEDS: Patient Taking Own Medication 1 EACH PO SCH ×3 (10:24→20:59)
[2017-06-12] MEDS: Insulin LISPRO 300 UNITS/3 ML VIAL SQ SCH ×4 (10:26→23:29)
[2017-06-12 15:09] LABS: Adenovirus F 40/41 PCR Not detected (Not detect); Astrovirus PCR Not detected (Not detect); C.difficile Toxin A/B by PCR Not detected (Not detect); Campylobacter by PCR Not detected (Not detect); Cryptosporidium by PCR Not detected (Not detect); Cyclospora cayetanensis PCR Not detected (Not detect); E. coli O157 by PCR Not detected (Not detect); Entamoeba histolytica PCR Not detected (Not detect); Enteroaggregative E.coli(EAEC) Not detected (Not detect); Enteropathogenic E.coli(EPEC) Not detected (Not detect); Enterotoxigenic E.coli (ETEC) Not detected (Not detect); Giardia lamblia PCR Not detected (Not detect); Norovirus GI/GII PCR Not detected (Not detect); Plesiomonas shigelloides PCR Not detected (Not detect); Rotavirus A PCR Not detected (Not detect); Salmonella PCR Not detected (Not detect); Sapovirus PCR Not detected (Not detect); Shig/EnteroinvasiveE coli EIEC Not detected (Not detect); Shigalike tox-prod E coli STEC Not detected (Not detect); Vibrio PCR Not detected (Not detect); Vibrio cholerae PCR Not detected (Not detect); Yersinia enterocolitica PCR Not detected (Not detect)
--- NOTE | 2017-06-12 20:08 | Internal Med Progress Note ---
Date of Encounter: 06/12/17 Time of Encounter: 11:00 - Assessment and plan (1) CHF exacerbation Current Visit: Yes Status: Acute Assessment and plan: Patient has increased shortness of breath. History of systolic CHF with LVEF 20 %. Has increased legs edema. Consider CHF exacerbation. - Place patient on continuous cardiac monitoring - Lasix 40 mg IV twice a day - Strict I and O - Fluid restriction 1500 ml a day - Repeat echocardiogram showed LVEF of 25-30% with severe global and second mental left ventricular systolic dysfunction. - Cardiology following with recommendations for heart catheterization on 06/14/17 Qualifiers: Heart failure type: systolic Qualified Code(s): I50.23 - Acute on chronic systolic (congestive) heart failure (2) COPD exacerbation Current Visit: Yes Status: Acute Assessment and plan: Patient still requiring high amounts of supplemental oxygenation continue DuoNeb (3) Diabetes Current Visit: Yes Status: Acute Assessment and plan: Sliding scale insulin Qualifiers: Diabetes mellitus type: type 2 Diabetes mellitus halfway insulin use: without halfway use Diabetes mellitus complication status: without complication Qualified Code(s): E11.9 - Type 2 diabetes mellitus without complications (4) Hypertension Current Visit: Yes Status: Acute Assessment and plan: Continue home medication after verification Qualifiers: Hypertension type: essential hypertension Qualified Code(s): I10 - Essential (primary) hypertension (5) New onset a-fib Current Visit: Yes Status: Acute Assessment and plan: Patient has no history of A. fib. Newly developed A. fib. Heart rate is well controlled. Continue beta pascual Will hold Eliquis after p.m. dose on this evening. (6) DVT prophylaxis Current Visit: Yes Status: Acute Assessment and plan: Patient is on Eliquis - Time Spent With Patient Total time spent is greater than 50% in coordination of care (as documented) at patient's floor/unit and/or counseling patient: - Subjective Interval history: Patient with new onset of diarrhea; to cultures negative Patient still requiring high amounts of supplemental oxygenation - Constitutional Vitals: Temp Pulse Resp BP Pulse Ox 97.9 F 87 16 121/76 97 06/12/17 15:00 06/12/17 15:00 06/12/17 15:24 06/12/17 15:00 06/12/17 15:24 General appearance: Present: A&O X 3, no acute distress, answers questions appropriately - Respiratory Respiratory exam: Present: CTAB. Absent: accessory muscle use, rales, rhonchi, wheezes - Cardiovascular Cardiovascular exam: Present: RRR, +S1, +S2. Absent: diastolic murmur, gallop, rubs, systolic murmur Internal Medicine: Result - Labs CBC & Chem 7: 06/12/17 09:18 06/12/17 09:18 Labs: Short CBC 06/12/17 Range/Units 09:18 WBC 8.8 (4.3-11.1) K/mcL Hgb 12.8 L (12.9-16.9) g/dL Hct 43.0 (37.5-50.1) % Plt Count 249 (140-400) K/mcL Neutrophils # 5.8 (1.6-8.9) K/mcL BMP 06/12/17 09:18 Sodium 136 Potassium 4.9 Chloride 97 L Carbon Dioxide 37 H BUN 47 H Creatinine 1.26 Glucose 198 H Calcium 9.1 Consult Discharge Plan - Plan Referrals: Tawny Ahumada, ADMISSIONS SPECIALIST [Primary Care Provider] -
[2017-06-12] MEDS ORDERED: Apixaban 5 MG TABLET PO SCH (20:30)
--- NOTE | 2017-06-12 22:57 | Event Note ---
Date of Encounter: 06/12/17 Time of Encounter: 20:57 Alerted by Pharmacy that pt. had order for Eliquis 5 mg BID and is due to have possible LHC on Wednesday. Concern is for anticoagulation prior to LHC. Patient admitted with new onset of A. fib with rate control on beta pascual. Cardiology recommendation is to continue Eliquis through 06/12 at 5 mg twice a day and discontinue for possible LHC on Wednesday. Pt. received first dose of 5 mg in a.m. today. Will receive 2nd dose tonight and stop. Pt. to be monitored.
[2017-06-13] MEDS: Ipratropium/Albuterol Neb 3 ML IH SCH ×4 (03:59→22:19)
[2017-06-13] MEDS: Aspirin Enteric Coated 81 MG Tablet PO SCH (07:58)
[2017-06-13] MEDS: Patient Taking Own Medication 1 EACH PO SCH ×3 (07:59→21:05)
[2017-06-13] MEDS: Multivit/Ca/Min/Fe/FA 1 TAB TABLET PO SCH (07:59)
[2017-06-13] MEDS: Insulin LISPRO 300 UNITS/3 ML VIAL SQ SCH ×4 (08:00→21:11)
[2017-06-13] MEDS: Furosemide 40 MG/4 ML VIAL IVP SCH ×2 (08:00→21:04)
[2017-06-13 09:58] LABS: Basophils % 0.4 %; Eosinophils # 0.1 K/mcL (0.0-0.6); Eosinophils % 1.7 %; Hematocrit 44.1 % (37.5-50.1); Hemoglobin 13.4 g/dL (12.9-16.9); Immature Granulocytes % 0.2 % (0-4); Lymphocytes # 2.1 K/mcL (0.6-4.6); Lymphocytes % 25.7 %; Mean Corpuscular HGB Conc 30.4 g/dL (31.6-35.5); Mean Corpuscular Volume 82.1 fL (83.0-100.0); Mean Platelet Volume 10.3 fL (9.4-12.4); Monocytes # 0.9 K/mcL (0.0-1.3); Monocytes % 11.1 %; Neutrophils # 4.9 K/mcL (1.6-8.9); Platelet Count 257 K/mcL (140-400); Red Blood Count 5.37 M/mcL (4.19-5.50); Segmented Neutrophils % 60.9 %
[2017-06-13 10:15] LABS: BUN/Creatinine Ratio 34 (6-26); Blood Urea Nitrogen 42 mg/dL (8-23); Calcium 9.3 mg/dL (8.6-10.3); Carbon Dioxide 37 mEq/L (23-29); Chloride 96 mEq/L (98-107); Glucose 195 mg/dL (70-105); Osmolality,Calculated 300 (280-300); Potassium 4.5 mEq/L (3.5-5.1); Sodium 137 mEq/L (136-145); eGFR For African Americans > 60 (> 60); eGFR For Non-African Americans 57 (> 60)
--- NOTE | 2017-06-13 11:20 | Cardiology Progress Note ---
Date of Encounter: 06/13/17 Time of Encounter: 10:30 Assessment and Plan (1) CHF exacerbation Current Visit: Yes Status: Acute Acute on chronic systolic CHF; NYHA class III symptoms. LVEF 30% per TTE 2016; last LVEF assessment June 2016 (Cardiac MRI) EF 37%. Repeat TTE this admission: LVEF 25-30%, mildly dilated LV, severe global and segmental LV systolic dysfunction, severely dilated LA, mild MR Admits to dietary noncompliance, was unaware of CHF dx. Appears volume overload upon exam. Cumulative I&O: -2241 mL. Agree with IV lasix. Continue betablocker, ARB. Strict I&O's, daily weights, Na/fluid restricted diet. Plan for LHC on Wednesday if renal function/respiratory status will allow. Qualifiers: Heart failure type: systolic Qualified Code(s): I50.23 - Acute on chronic systolic (congestive) heart failure (2) CAD (coronary artery disease) Current Visit: Yes Status: Acute Hx of CAD s/p CABG in 1991. Last ischemic eval 2016 (stress)--negative for ischemia, positive for large infarct. Repeat TTE shows reduced LVEF 20-25% Continue asa, statin, BB. Given new onset afib, will likely require ischemic evaluation prior to discharge. Plan for LHC on Wednesday if respiratory status will allow. Qualifiers: Coronary Disease-Associated Artery/Lesion type: bypass graft [place] vs. transplanted heart: [place] heart Associated angina: without angina Qualified Code(s): I25.810 - Atherosclerosis of coronary artery bypass graft(s) without angina pectoris (3) New onset a-fib Current Visit: Yes Status: Acute New onset afib, chronicity unclear. Patient is rate controlled on oral betablockade. Started on Eliquis for AC--held as of 06/12/17. Discussion w patient/family: The assessment and plan as outlined above was discussed with the patient and/or family members who expressed understanding and agreement. All questions were answered. Thank you for involving us in the care of your patient. Please call with any questions. The patient was discussed and reviewed with Dr. Anne; changes to be made accordingly. Subjective Principal diagnosis: CHF, AFib, CAD Interval history: Seen and examined. Breathing improved, not yet at baseline. Still with significant LE edema. Objective Vital Signs, Last 4 Hours Temp Pulse Resp BP Pulse Ox 06/13/17 11:14 98.2 F 89 16 112/58 94 General: Conversant, No Apparent Distress HEENT: Atraumatic, Normocephaly Cardiac: Other (irregularly irregular) Lungs: Normal Breath Sounds Neuro: Alert and responsive Abdomen: Soft Skin: No rashes noted on visualized skin Musculoskeletal: No Chest Wall Tenderness Extremities: Other (bilateral LE mylene wraps) Results 06/13/17 09:45 06/13/17 09:45 Lab Results 06/13/17 06/13/17 09:45 09:45 WBC 8.1 Hgb 13.4 Hct 44.1 Plt Count 257 Sodium 137 Potassium 4.5 Chloride 96 L Carbon Dioxide 37 H BUN 42 H Creatinine 1.24 Glucose 195 H Calcium 9.3 Active Medications Acetaminophen (Tylenol) 650 mg PO Q6HR PRN PRN Reason: Mild Pain/Fever Stop: 12/10/17 21:04 Albuterol/Ipratropium (Duoneb) 3 ml IH [id number] PRN PRN Reason: Shortness Of Breath/Wheezing Stop: 12/10/17 21:11 Albuterol/Ipratropium (Duoneb) 3 ml IH [id number] LAQUITA Stop: 12/11/17 04:01 Last Admin: 06/13/17 10:49 Dose: 3 ml Aspirin (Aspirin Ec) 81 mg PO DAILY LAQUITA Stop: 12/12/17 09:01 Last Admin: 06/13/17 07:58 Dose: 81 mg Atorvastatin Calcium (Lipitor) 40 mg PO HS LAQUITA Stop: 12/11/17 21:01 Last Admin: 06/12/17 23:29 Dose: 40 mg Carvedilol (Coreg) 25 mg PO BID LAQUITA PRN Reason: Protocol Stop: 12/11/17 22:16 Last Admin: 06/13/17 07:58 Dose: 25 mg Dextrose/Water (Dextrose 50% (Syg)) 25 ml IVP AD PRN PRN Reason: Hypoglycemia Stop: 12/10/17 21:08 Furosemide (Lasix) 40 mg IVP BID LAQUITA Stop: 12/10/17 21:16 Last Admin: 06/13/17 08:00 Dose: 40 mg Glucagon (Glucagen) 1 mg IM ONCE PRN PRN Reason: Hypoglycemia Stop: 12/10/17 21:08 Glucose (Gluctose) 15 gm PO ONCE PRN PRN Reason: Hypoglycemia Stop: 12/10/17 21:08 Glucose (Gluctose) 30 gm PO ONCE PRN PRN Reason: Hypoglycemia Stop: 12/10/17 21:08 Dextrose (Dextrose 5%) 1,000 mls @ 100 mls/hr IVC .Q10H PRN PRN Reason: HYPOGLYCEMIA Stop: 12/10/17 21:08 Insulin Human Lispro (Humalog) 0 units SQ HS LAQUITA PRN Reason: Protocol Stop: 12/11/17 21:01 Last Admin: 06/12/17 23:29 Dose: Not Given Insulin Human Lispro (Humalog) 0 units SQ TIDAC LAQUITA PRN Reason: Protocol Stop: 12/11/17 07:31 Last Admin: 06/13/17 08:00 Dose: Not Given Loperamide HCl (Imodium) 2 mg PO Q4HR PRN PRN Reason: Diarrhea Stop: 12/12/17 17:04 Last Admin: 06/12/17 17:58 Dose: 2 mg Losartan Potassium (Cozaar) 100 mg PO DAILY LAQUITA Stop: 12/11/17 22:16 Last Admin: 06/13/17 07:59 Dose: 100 mg Multivitamins/Calcium (Thera M Plus) 1 tab PO DAILY LAQUITA Stop: 12/12/17 09:01 Last Admin: 06/13/17 07:59 Dose: 1 tab Naloxone HCl (Narcan) 0.4 mg IVP Q2MIN PRN PRN Reason: SEE COMMENTS Stop: 12/10/17 21:04 Pharmacy Profile Note (Patient Taking Own Medication) 0 each PO TID LAQUITA Stop: 12/11/17 15:01 Last Admin: 06/13/17 07:59 Dose: Not Given - Imaging and Cardiology Echo: report reviewed Other Results: 12 hour tele: avg HR=86 afib. - EKG Interpretation EKG results cardiology: personally reviewed Consult Discharge Plan - Plan Referrals: Tawny Ahumada PLANNING SUPERVISOR [Primary Care Provider] -
--- NOTE | 2017-06-13 17:36 | Internal Med Progress Note ---
Date of Encounter: 06/13/17 Time of Encounter: 11:00 - Assessment and plan (1) Acute respiratory failure with hypoxia Current Visit: Yes Status: Acute Assessment and plan: Patient's respiratory status improving as now requiring less O2 supplementation Continue to wean O2 as tolerates (2) Acute renal failure (ARF) Current Visit: Yes Status: Acute Assessment and plan: Resolved; creatinine was 1.40 on admission and today 1.24 Continue to monitor Qualifiers: Acute renal failure type: unspecified Qualified Code(s): N17.9 - Acute kidney failure, unspecified (3) CHF exacerbation Current Visit: Yes Status: Acute Assessment and plan: Patient has increased shortness of breath. History of systolic CHF with LVEF 20%. Repeat echocardiogram showed LVEF of 25-30% with severe global and second mental left ventricular systolic dysfunction. Will continue Lasix 40 mg IV twice a day, Strict I and O and fluid restriction 1500 ml a day Cardiology following with recommendations for heart catheterization on 06/14/17 Qualifiers: Heart failure type: systolic Qualified Code(s): I50.23 - Acute on chronic systolic (congestive) heart failure (4) New onset a-fib Current Visit: Yes Status: Acute Assessment and plan: Newly developed A. fib. Heart rate is well controlled. Continue beta pascual Will hold Eliquis due to left heart catheterization scheduled for 06/14/17 (5) COPD exacerbation Current Visit: Yes Status: Acute Assessment and plan: Patient still requiring high amounts of supplemental oxygenation continue DuoNeb (6) Diabetes Current Visit: Yes Status: Acute Assessment and plan: Sliding scale insulin Qualifiers: Diabetes mellitus type: type 2 Diabetes mellitus mcfp insulin use: without mcfp use Diabetes mellitus complication status: without complication Qualified Code(s): E11.9 - Type 2 diabetes mellitus without complications (7) Hypertension Current Visit: Yes Status: Acute Assessment and plan: Continue home medication Qualifiers: Hypertension type: essential hypertension Qualified Code(s): I10 - Essential (primary) hypertension (8) DVT prophylaxis Current Visit: Yes Status: Acute Assessment and plan: Eliquis held due to left heart catheterization on - Time Spent With Patient Total time spent is greater than 50% in coordination of care (as documented) at patient's floor/unit and/or counseling patient: - Subjective Interval history: Patient with improving respiratory status requiring less supplemental oxygenation and acute renal failure has resolved Plans for left heart catheterization on 06/14/17 - Constitutional Vitals: Temp Pulse Resp BP Pulse Ox 98.2 F 79 15 112/62 94 06/13/17 11:14 06/13/17 16:00 06/13/17 16:00 06/13/17 17:33 06/13/17 16:00 General appearance: Present: A&O X 3, no acute distress, answers questions appropriately - Respiratory Respiratory exam: Present: CTAB. Absent: accessory muscle use, rales, rhonchi, wheezes - Cardiovascular Cardiovascular exam: Present: RRR, +S1, +S2. Absent: diastolic murmur, gallop, rubs, systolic murmur Internal Medicine: Result - Labs CBC & Chem 7: 06/13/17 09:45 06/13/17 09:45 Labs: Short CBC 06/13/17 Range/Units 09:45 WBC 8.1 (4.3-11.1) K/mcL Hgb 13.4 (12.9-16.9) g/dL Hct 44.1 (37.5-50.1) % Plt Count 257 (140-400) K/mcL Neutrophils # 4.9 (1.6-8.9) K/mcL BMP 06/13/17 09:45 Sodium 137 Potassium 4.5 Chloride 96 L Carbon Dioxide 37 H BUN 42 H Creatinine 1.24 Glucose 195 H Calcium 9.3 Consult Discharge Plan - Plan Referrals: Tawny Ahumada BEADING SAWYER [Primary Care Provider] -
[2017-06-14] MEDS: Ipratropium/Albuterol Neb 3 ML IH SCH ×4 (03:32→22:56)
[2017-06-14] MEDS: Insulin LISPRO 300 UNITS/3 ML VIAL SQ SCH ×4 (08:54→20:19)
[2017-06-14] MEDS: Aspirin Enteric Coated 81 MG Tablet PO SCH (09:02)
[2017-06-14] MEDS: Multivit/Ca/Min/Fe/FA 1 TAB TABLET PO SCH (09:02)
[2017-06-14] MEDS: Furosemide 40 MG/4 ML VIAL IVP SCH (09:03)
--- NOTE | 2017-06-14 09:15 | Event Note ---
Date of Encounter: 06/14/17 Time of Encounter: 09:10 - Cardiology Event Note Discussed patient with both Dr. Voss and Dr. Eckert. After discussion with Dr. Eckert; recommend nuclear stress test prior to LHC to determine area of ischemia. Discussed with patient, he is agreeable with plan. Further recommendations to follow.
[2017-06-14 10:40] LABS: Basophils % 0.2 %; Eosinophils # 0.2 K/mcL (0.0-0.6); Eosinophils % 2.4 %; Hematocrit 46.1 % (37.5-50.1); Hemoglobin 13.8 g/dL (12.9-16.9); Immature Granulocytes % 0.5 % (0-4); Lymphocytes # 2.3 K/mcL (0.6-4.6); Lymphocytes % 26.6 %; Mean Corpuscular HGB Conc 29.9 g/dL (31.6-35.5); Mean Corpuscular Hemoglobin 24.3 pg (28.0-33.3); Mean Corpuscular Volume 81.3 fL (83.0-100.0); Mean Platelet Volume 10.5 fL (9.4-12.4); Monocytes # 0.9 K/mcL (0.0-1.3); Neutrophils # 5.2 K/mcL (1.6-8.9); Nucleated Red Blood Cells 0.2 /100 WBC (0); Platelet Count 262 K/mcL (140-400); Red Blood Count 5.67 M/mcL (4.19-5.50); Segmented Neutrophils % 60.3 %
[2017-06-14 10:54] LABS: BUN/Creatinine Ratio 39 (6-26); Blood Urea Nitrogen 43 mg/dL (8-23); Calcium 9.5 mg/dL (8.6-10.3); Carbon Dioxide 34 mEq/L (23-29); Chloride 98 mEq/L (98-107); Glucose 144 mg/dL (70-105); Osmolality,Calculated 295 (280-300); Sodium 136 mEq/L (136-145); eGFR For African Americans > 60 (> 60); eGFR For Non-African Americans > 60 (> 60)
[2017-06-14] MEDS ORDERED: Regadenoson 0.4 MG/5 ML SYRINGE IVP ONE (11:39)
[2017-06-14] MEDS: Patient Taking Own Medication 1 EACH PO SCH ×3 (12:02→20:20)
[2017-06-14] MEDS ORDERED: Furosemide 40 MG/4 ML VIAL IVP SCH (17:00)
--- NOTE | 2017-06-14 19:04 | Internal Med Progress Note ---
Date of Encounter: 06/14/17 Time of Encounter: 11:00 - Assessment and plan (1) Acute respiratory failure with hypoxia Current Visit: Yes Status: Acute Assessment and plan: Patient's respiratory status improving as now requiring less O2 supplementation Suspect secondary to acute systolic heart failure Continue to wean O2 as tolerates (2) CHF exacerbation Current Visit: Yes Status: Acute Assessment and plan: Patient has increased shortness of breath. History of systolic CHF with LVEF 20%. Repeat echocardiogram showed LVEF of 25-30% with severe global and second mental left ventricular systolic dysfunction. Recommendations to change IV Lasix to oral Lasix Cardiology following with recommendations for nuclear medicine stress tests which showed no significant areas of ischemia. Recommendations for continued medical management Qualifiers: Heart failure type: systolic Qualified Code(s): I50.23 - Acute on chronic systolic (congestive) heart failure (3) New onset a-fib Current Visit: Yes Status: Acute Assessment and plan: Newly developed A. fib. Heart rate is well controlled. Continue beta pascual Will start Eliquis (4) Acute renal failure (ARF) Current Visit: Yes Status: Acute Assessment and plan: Resolved; continue to monitor Qualifiers: Acute renal failure type: unspecified Qualified Code(s): N17.9 - Acute kidney failure, unspecified (5) COPD exacerbation Current Visit: Yes Status: Acute Assessment and plan: Patient still requiring high amounts of supplemental oxygenation continue DuoNeb (6) Diabetes Current Visit: Yes Status: Acute Assessment and plan: Sliding scale insulin Qualifiers: Diabetes mellitus type: type 2 Diabetes mellitus terminal computer operator insulin use: without terminal computer operator use Diabetes mellitus complication status: without complication Qualified Code(s): E11.9 - Type 2 diabetes mellitus without complications (7) Hypertension Current Visit: Yes Status: Acute Assessment and plan: Continue home medication Qualifiers: Hypertension type: essential hypertension Qualified Code(s): I10 - Essential (primary) hypertension (8) DVT prophylaxis Current Visit: Yes Status: Acute Assessment and plan: Starting Eliquis - Time Spent With Patient Total time spent is greater than 50% in coordination of care (as documented) at patient's floor/unit and/or counseling patient: - Subjective Interval history: Patient with acute systolic heart failure with LVEF of 20% and new atrial fibrillation with improving respiratory status requiring less supplemental oxygenation and acute renal failure has resolved Plans for nuclear medicine stress tests today with consideration for left heart catheterization - Constitutional Vitals: Temp Pulse Resp BP Pulse Ox 97.5 F L 106 15 124/73 93 06/14/17 16:00 06/14/17 16:00 06/14/17 16:00 06/14/17 16:00 06/14/17 16:00 General appearance: Present: A&O X 3, no acute distress, answers questions appropriately - Respiratory Respiratory exam: Present: CTAB. Absent: accessory muscle use, rales, rhonchi, wheezes - Cardiovascular Cardiovascular exam: Present: RRR, +S1, +S2. Absent: diastolic murmur, gallop, rubs, systolic murmur Internal Medicine: Result - Labs CBC & Chem 7: 06/14/17 10:23 06/14/17 10:23 Labs: Short CBC 06/14/17 Range/Units 10:23 WBC 8.6 (4.3-11.1) K/mcL Hgb 13.8 (12.9-16.9) g/dL Hct 46.1 (37.5-50.1) % Plt Count 262 (140-400) K/mcL Neutrophils # 5.2 (1.6-8.9) K/mcL BMP 06/14/17 10:23 Sodium 136 Potassium 5.0 Chloride 98 Carbon Dioxide 34 H BUN 43 H Creatinine 1.11 Glucose 144 H Calcium 9.5 Consult Discharge Plan - Plan Referrals: Shawn Scott MD [Partnered Physician] - 07/20/17 9:30 am Tawny Ahumada CNP [Primary Care Provider] -
[2017-06-14] MEDS: Apixaban 5 MG TABLET PO SCH (20:15)
[2017-06-15] MEDS: Ipratropium/Albuterol Neb 3 ML IH SCH ×4 (03:51→21:31)
[2017-06-15] MEDS ORDERED: Furosemide 40 MG TABLET PO SCH (09:00)
[2017-06-15] MEDS: Apixaban 5 MG TABLET PO SCH ×2 (09:09→22:43)
[2017-06-15] MEDS: Aspirin Enteric Coated 81 MG Tablet PO SCH (09:09)
[2017-06-15] MEDS: Multivit/Ca/Min/Fe/FA 1 TAB TABLET PO SCH (09:09)
[2017-06-15] MEDS: Patient Taking Own Medication 1 EACH PO SCH (09:10)
[2017-06-15] MEDS: Insulin LISPRO 300 UNITS/3 ML VIAL SQ SCH ×4 (09:14→22:43)
--- NOTE | 2017-06-15 13:12 | Internal Med Progress Note ---
<Venkat Parmar - Last Filed: 06/15/17 13:10> Date of Encounter: 06/15/17 Time of Encounter: 09:00 - Assessment and plan (1) CHF exacerbation Current Visit: Yes Status: Acute Assessment and plan: Patient is symptomatically improving, but on clinical exam contniues to be hypervolemic. Repeat echo shows LVEF of 25-30%. - increased IV lasix - serial volume status exams - strict I/O - cardiac diet 1.5 L fluid and 2 g Na restriction. Qualifiers: Heart failure type: systolic Qualified Code(s): I50.23 - Acute on chronic systolic (congestive) heart failure (2) COPD exacerbation Current Visit: Yes Status: Acute Assessment and plan: Provide Respiratory support as needed. - goal O2 is 88-92% - wean off O2 as able to (3) Diabetes Current Visit: Yes Status: Acute Assessment and plan: Sliding scale insulin Qualifiers: Diabetes mellitus type: type 2 Diabetes mellitus retirement insulin use: without manager intermediate use Diabetes mellitus complication status: without complication Qualified Code(s): E11.9 - Type 2 diabetes mellitus without complications (4) Hypertension Current Visit: Yes Status: Acute Assessment and plan: Continue home medication Qualifiers: Hypertension type: essential hypertension Qualified Code(s): I10 - Essential (primary) hypertension (5) DVT prophylaxis Current Visit: Yes Status: Acute Assessment and plan: Starting Eliquis (6) New onset a-fib Current Visit: Yes Status: Acute Assessment and plan: Newly developed A. fib. Heart rate is well controlled. - Continue beta pascual - continue eliquis (7) Acute respiratory failure with hypoxia Current Visit: Yes Status: Acute Assessment and plan: continue to provide respiratory support as needed. (8) Acute renal failure (ARF) Current Visit: Yes Status: Acute Assessment and plan: Resolved; continue to monitor Qualifiers: Acute renal failure type: unspecified Qualified Code(s): N17.9 - Acute kidney failure, unspecified - Time Spent With Patient Total time spent is greater than 50% in coordination of care (as documented) at patient's floor/unit and/or counseling patient: - Subjective Interval history: Mr villatoro is seen and examined today. Patient reports he's feeling better but continues to have swelling in his legs. Patient denies SOB, CP, nausea, vomiting, fever. - Constitutional Vitals: Temp Pulse Resp BP Pulse Ox 98.2 F 110 18 111/60 93 06/15/17 05:00 06/15/17 11:00 06/15/17 11:13 06/15/17 11:00 06/15/17 11:13 General appearance: Present: A&O X 3, no acute distress, answers questions appropriately - Head Head exam: Present: atraumatic, normocephalic - Respiratory Respiratory exam: Present: rhonchi (bilaterally at base of lungs) - Cardiovascular Cardiovascular exam: Present: RRR - GI/Abdominal GI/Abdominal exam: Present: soft. Absent: distended, rigid - Extremities Exam Extremities exam: Present: pedal edema (3+ BLE) Internal Medicine: Result - Labs CBC & Chem 7: 06/14/17 10:23 06/14/17 10:23 - VTE Documentation of Mechanical Device: Graduated compression elastic hosiery Consult Discharge Plan - Plan Referrals: Shawn Scott MD [Partnered Physician] - 07/20/17 9:30 am Tawny Ahumada CNP [Primary Care Provider] - 06/17/17 9:00 am Prescriptions: Apixaban [Eliquis] 5 mg PO BID #60 tablet <Ryan Glass - Last Filed: 06/15/17 17:34> Date of Encounter: 06/15/17 - Time Spent With Patient Total time spent is greater than 50% in coordination of care (as documented) at patient's floor/unit and/or counseling patient: - Constitutional Vitals: Temp Pulse Resp BP Pulse Ox 98.3 F 91 18 111/73 91 06/15/17 15:00 06/15/17 15:00 06/15/17 15:29 06/15/17 15:00 06/15/17 15:29 Internal Medicine: Result - Labs CBC & Chem 7: 06/14/17 10:23 06/14/17 10:23 - Attending Attestation I saw and examined this patient independently, and my medical decision making was reviewed with the resident physician on 06/15/2017. I agree with the documented findings, assessment and treatment plan as described in the progress note. Patient has significant bilateral lower extremity swelling, up to the high thigh , will increase Lasix to 40 mg every 8 hours, close monitor kidney functions, probably will need a few more days to be euvolemic
[2017-06-15] MEDS ORDERED: Furosemide 40 MG/4 ML VIAL IVP SCH (17:00)
[2017-06-15] MEDS: Furosemide 40 MG TABLET PO SCH (17:29)
[2017-06-16] MEDS: Ipratropium/Albuterol Neb 3 ML IH SCH ×4 (03:49→21:51)
[2017-06-16 05:54] LABS: Basophils % 0.2 %; Eosinophils # 0.2 K/mcL (0.0-0.6); Eosinophils % 1.5 %; Hematocrit 44.2 % (37.5-50.1); Hemoglobin 13.2 g/dL (12.9-16.9); Immature Granulocytes % 0.5 % (0-4); Lymphocytes # 1.9 K/mcL (0.6-4.6); Lymphocytes % 15.3 %; Mean Corpuscular HGB Conc 29.9 g/dL (31.6-35.5); Mean Corpuscular Hemoglobin 24.5 pg (28.0-33.3); Mean Corpuscular Volume 82.2 fL (83.0-100.0); Mean Platelet Volume 10.3 fL (9.4-12.4); Monocytes # 1.3 K/mcL (0.0-1.3); Monocytes % 11.1 %; Neutrophils # 8.6 K/mcL (1.6-8.9); Platelet Count 225 K/mcL (140-400); Red Blood Count 5.38 M/mcL (4.19-5.50); Red Cell Distribution Width 14.4 % (11.5-14.5); Segmented Neutrophils % 71.4 %
[2017-06-16 06:13] LABS: BUN/Creatinine Ratio 37 (6-26); Blood Urea Nitrogen 42 mg/dL (8-23); Calcium 9.1 mg/dL (8.6-10.3); Carbon Dioxide 35 mEq/L (23-29); Chloride 100 mEq/L (98-107); Glucose 153 mg/dL (70-105); Osmolality,Calculated 302 (280-300); Potassium 4.7 mEq/L (3.5-5.1); Sodium 139 mEq/L (136-145); eGFR For African Americans > 60 (> 60); eGFR For Non-African Americans > 60 (> 60)
[2017-06-16] MEDS: Furosemide 40 MG TABLET PO SCH ×3 (08:22→16:45)
[2017-06-16] MEDS: Aspirin Enteric Coated 81 MG Tablet PO SCH (08:22)
[2017-06-16] MEDS: Apixaban 5 MG TABLET PO SCH ×2 (08:22→22:36)
[2017-06-16] MEDS: Multivit/Ca/Min/Fe/FA 1 TAB TABLET PO SCH (08:22)
[2017-06-16] MEDS: Insulin LISPRO 300 UNITS/3 ML VIAL SQ SCH ×4 (08:22→22:37)
--- NOTE | 2017-06-16 10:07 | Internal Med Progress Note ---
<Veknat Parmar - Last Filed: 06/16/17 13:38> Date of Encounter: 06/16/17 Time of Encounter: 09:15 - Assessment and plan (1) CHF exacerbation Current Visit: Yes Status: Acute Assessment and plan: Patient is symptomatically improving, but on clinical exam contniues to be hypervolemic; swelling in legs, and crackles at the base of lungs. Repeat echo shows LVEF of 25-30%. Will most likely d/c tomorrow. After cath and lasix given yesterday patient has had UO of 2200 mL since. - continue lasix - serial volume status exams - strict I/O - cardiac diet 1.5 L fluid and 2 g Na restriction. Qualifiers: Heart failure type: systolic Qualified Code(s): I50.23 - Acute on chronic systolic (congestive) heart failure (2) COPD exacerbation Current Visit: Yes Status: Acute Assessment and plan: Provide Respiratory support as needed. - goal O2 is 88-92% - currently weaned off of [place] O2 (3) Diabetes Current Visit: Yes Status: Acute Assessment and plan: Sliding scale insulin Qualifiers: Diabetes mellitus type: type 2 Diabetes mellitus correction insulin use: without correction use Diabetes mellitus complication status: without complication Qualified Code(s): E11.9 - Type 2 diabetes mellitus without complications (4) Hypertension Current Visit: Yes Status: Acute Assessment and plan: Continue home medication Qualifiers: Hypertension type: essential hypertension Qualified Code(s): I10 - Essential (primary) hypertension (5) DVT prophylaxis Current Visit: Yes Status: Acute Assessment and plan: Started on Eliquis (6) New onset a-fib Current Visit: Yes Status: Acute Assessment and plan: Newly developed A. fib. Heart rate is well controlled. - Continue beta pascual - continue eliquis (7) Acute respiratory failure with hypoxia Current Visit: Yes Status: Acute Assessment and plan: continue to provide respiratory support as needed. (8) Acute renal failure (ARF) Current Visit: Yes Status: Acute Assessment and plan: Resolved; continue to monitor Qualifiers: Acute renal failure type: unspecified Qualified Code(s): N17.9 - Acute kidney failure, unspecified - Time Spent With Patient Total time spent is greater than 50% in coordination of care (as documented) at patient's floor/unit and/or counseling patient: - Subjective Interval history: Mr baum is seen and examined today. He reports getting a lot of urine out yesterday after catheter was placed and given lasix. He thinks his leg swelling has decreased quite a bit. Patient denies SOB, CP, nausea, vomiting, fever. - Constitutional Vitals: Temp Pulse Resp BP Pulse Ox 97.5 F L 95 16 120/71 96 06/16/17 07:38 06/16/17 07:38 06/16/17 07:38 06/16/17 07:38 06/16/17 07:38 General appearance: Present: cooperative, A&O X 3, no acute distress, answers questions appropriately - Head Head exam: Present: atraumatic, normocephalic - ENT ENT exam: Present: mucous membranes moist - Respiratory Respiratory exam: Present: rhonchi (at base of lungs) - Cardiovascular Cardiovascular exam: Present: RRR - Extremities Exam Extremities exam: Present: pedal edema (1+ BLE; large improvement from yesterday ) Internal Medicine: Result - Labs CBC & Chem 7: 06/16/17 05:19 06/16/17 05:19 Labs: Short CBC 06/16/17 Range/Units 05:19 WBC 12.1 H (4.3-11.1) K/mcL Hgb 13.2 (12.9-16.9) g/dL Hct 44.2 (37.5-50.1) % Plt Count 225 (140-400) K/mcL Neutrophils # 8.6 (1.6-8.9) K/mcL BMP 06/16/17 05:19 Sodium 139 Potassium 4.7 Chloride 100 Carbon Dioxide 35 H BUN 42 H Creatinine 1.15 Glucose 153 H Calcium 9.1 - VTE Documentation of Mechanical Device: Graduated compression elastic hosiery Consult Discharge Plan - Plan Referrals: Shawn Scott MD [Partnered Physician] - 07/20/17 9:30 am Tawny Ahumada CNP [Primary Care Provider] - 06/17/17 9:00 am Prescriptions: Apixaban [Eliquis] 5 mg PO BID #60 tablet <Navarro Roblero - Last Filed: 06/16/17 15:32> Date of Encounter: 06/16/17 - Assessment and plan (1) CHF exacerbation Current Visit: Yes Status: Acute Qualifiers: Heart failure type: systolic Qualified Code(s): I50.23 - Acute on chronic systolic (congestive) heart failure (2) COPD exacerbation Current Visit: Yes Status: Acute (3) Diabetes Current Visit: Yes Status: Acute Qualifiers: Diabetes mellitus type: type 2 Diabetes mellitus tank terminal gauger insulin use: without tank terminal gauger use Diabetes mellitus complication status: without complication Qualified Code(s): E11.9 - Type 2 diabetes mellitus without complications (4) Hypertension Current Visit: Yes Status: Acute Qualifiers: Hypertension type: essential hypertension Qualified Code(s): I10 - Essential (primary) hypertension (5) DVT prophylaxis Current Visit: Yes Status: Acute (6) New onset a-fib Current Visit: Yes Status: Acute (7) Acute respiratory failure with hypoxia Current Visit: Yes Status: Acute (8) Acute renal failure (ARF) Current Visit: Yes Status: Acute Qualifiers: Acute renal failure type: unspecified Qualified Code(s): N17.9 - Acute kidney failure, unspecified - Time Spent With Patient Total time spent is greater than 50% in coordination of care (as documented) at patient's floor/unit and/or counseling patient: - Constitutional Vitals: Temp Pulse Resp BP Pulse Ox 97.7 F 79 16 108/68 93 06/16/17 11:31 06/16/17 11:31 06/16/17 11:31 06/16/17 11:31 06/16/17 11:31 Internal Medicine: Result - Labs CBC & Chem 7: 06/16/17 05:19 06/16/17 05:19 Labs: Short CBC 06/16/17 Range/Units 05:19 WBC 12.1 H (4.3-11.1) K/mcL Hgb 13.2 (12.9-16.9) g/dL Hct 44.2 (37.5-50.1) % Plt Count 225 (140-400) K/mcL Neutrophils # 8.6 (1.6-8.9) K/mcL BMP 06/16/17 05:19 Sodium 139 Potassium 4.7 Chloride 100 Carbon Dioxide 35 H BUN 42 H Creatinine 1.15 Glucose 153 H Calcium 9.1 - Attending Attestation I performed an independent interview and examine this patient. I agree with the findings, assessment, and plan of Dr. Barreto, internal medicine internet sales director. My input is reflected in his note. Patient continues to have excellent diuresis with Lasix. I do suspect he is not completely compensated from his CHF, (acute on chronic systolic CHF). Patient will remain in the hospital and additional day as we continue to diurese him. His vitals remained stable. We will attempt to wean off supplemental oxygen overnight. His creatinine remained stable despite diuresis. Patient continues on pelvic for anticoagulation for atrial fibrillation, ARB, and Coreg. All else as outlined above.
[2017-06-17] MEDS: Ipratropium/Albuterol Neb 3 ML IH SCH ×4 (03:53→22:11)
[2017-06-17 05:23] LABS: Basophils % 0.2 %; Eosinophils # 0.1 K/mcL (0.0-0.6); Eosinophils % 0.9 %; Hematocrit 40.8 % (37.5-50.1); Immature Granulocytes % 0.6 % (0-4); Lymphocytes # 2.2 K/mcL (0.6-4.6); Lymphocytes % 17.3 %; Mean Corpuscular HGB Conc 29.4 g/dL (31.6-35.5); Mean Corpuscular Hemoglobin 24.4 pg (28.0-33.3); Mean Corpuscular Volume 82.9 fL (83.0-100.0); Mean Platelet Volume 10.7 fL (9.4-12.4); Monocytes # 1.6 K/mcL (0.0-1.3); Monocytes % 12.1 %; Neutrophils # 8.8 K/mcL (1.6-8.9); Platelet Count 212 K/mcL (140-400); Red Blood Count 4.92 M/mcL (4.19-5.50); Red Cell Distribution Width 14.4 % (11.5-14.5); Segmented Neutrophils % 68.9 %
[2017-06-17 05:40] LABS: BUN/Creatinine Ratio 40 (6-26); Blood Urea Nitrogen 38 mg/dL (8-23); Calcium 8.6 mg/dL (8.6-10.3); Carbon Dioxide 32 mEq/L (23-29); Chloride 102 mEq/L (98-107); Glucose 138 mg/dL (70-105); Osmolality,Calculated 297 (280-300); Potassium 4.6 mEq/L (3.5-5.1); Sodium 138 mEq/L (136-145); eGFR For African Americans > 60 (> 60); eGFR For Non-African Americans > 60 (> 60)
[2017-06-17] MEDS: Furosemide 40 MG TABLET PO SCH ×3 (09:49→17:32)
[2017-06-17] MEDS: Multivit/Ca/Min/Fe/FA 1 TAB TABLET PO SCH (09:49)
[2017-06-17] MEDS: Aspirin Enteric Coated 81 MG Tablet PO SCH (09:49)
[2017-06-17] MEDS: Apixaban 5 MG TABLET PO SCH ×2 (09:49→20:55)
[2017-06-17] MEDS: Insulin LISPRO 300 UNITS/3 ML VIAL SQ SCH ×4 (09:49→20:55)
--- NOTE | 2017-06-17 14:21 | Internal Med Progress Note ---
<Venkat Parmar - Last Filed: 06/17/17 14:18> Date of Encounter: 06/17/17 Time of Encounter: 09:00 - Assessment and plan (1) CHF exacerbation Current Visit: Yes Status: Acute Assessment and plan: Patient is symptomatically improving, but on clinical exam contniues to be hypervolemic; swelling in legs, and crackles at the base of lungs. Repeat echo shows LVEF of 25-30%. Will most likely d/c tomorrow. After cath and lasix given yesterday patient has had UO of 2200 mL since. - continue lasix (will be d/c'ed with Lasix) - serial volume status exams - strict I/O - cardiac diet 1.5 L fluid and 2 g Na restriction. - void trial ordered - Wean off of O2 (goal O2 is 88-92%) Qualifiers: Heart failure type: systolic Qualified Code(s): I50.23 - Acute on chronic systolic (congestive) heart failure (2) COPD exacerbation Current Visit: Yes Status: Acute Assessment and plan: Provide Respiratory support as needed. - goal O2 is 88-92% - currently weaned off of NC O2 (3) Diabetes Current Visit: Yes Status: Acute Assessment and plan: Sliding scale insulin Qualifiers: Diabetes mellitus type: type 2 Diabetes mellitus retirement insulin use: without plastics fabricator and assembler use Diabetes mellitus complication status: without complication Qualified Code(s): E11.9 - Type 2 diabetes mellitus without complications (4) Hypertension Current Visit: Yes Status: Acute Assessment and plan: Continue home medication Qualifiers: Hypertension type: essential hypertension Qualified Code(s): I10 - Essential (primary) hypertension (5) DVT prophylaxis Current Visit: Yes Status: Acute Assessment and plan: Started on Eliquis (6) New onset a-fib Current Visit: Yes Status: Acute Assessment and plan: Newly developed A. fib. Heart rate is well controlled. - Continue beta pascual - continue eliquis (7) Acute respiratory failure with hypoxia Current Visit: Yes Status: Acute Assessment and plan: continue to provide respiratory support as needed. (8) Acute renal failure (ARF) Current Visit: Yes Status: Acute Assessment and plan: Resolved; continue to monitor Qualifiers: Acute renal failure type: unspecified Qualified Code(s): N17.9 - Acute kidney failure, unspecified - Time Spent With Patient Total time spent is greater than 50% in coordination of care (as documented) at patient's floor/unit and/or counseling patient: - Subjective Interval history: Mr baum is seen and examined today. He continues to report impovement in symptoms, with almost no swelling in his legs today and no difficulty in breathing. Patient denies SOB, CP, nausea, vomiting, fever. - Constitutional Vitals: Temp Pulse Resp BP Pulse Ox 98.0 F 97 16 106/65 95 06/17/17 04:00 06/17/17 09:52 06/17/17 11:47 06/17/17 09:52 06/17/17 11:47 General appearance: Present: cooperative, A&O X 3, no acute distress, answers questions appropriately - Head Head exam: Present: atraumatic, normocephalic - ENT ENT exam: Present: mucous membranes dry - Respiratory Respiratory exam: Present: prolonged expiratory phase, wheezes - Cardiovascular Cardiovascular exam: Present: RRR - Extremities Exam Extremities exam: Present: pedal edema (0+ BLE) Internal Medicine: Result - Labs CBC & Chem 7: 06/17/17 05:03 06/17/17 05:03 Labs: Short CBC 06/17/17 Range/Units 05:03 WBC 12.9 H (4.3-11.1) K/mcL Hgb 12.0 L (12.9-16.9) g/dL Hct 40.8 (37.5-50.1) % Plt Count 212 (140-400) K/mcL Neutrophils # 8.8 (1.6-8.9) K/mcL BMP 06/17/17 05:03 Sodium 138 Potassium 4.6 Chloride 102 Carbon Dioxide 32 H BUN 38 H Creatinine 0.94 Glucose 138 H Calcium 8.6 - VTE Documentation of Mechanical Device: Graduated compression elastic hosiery Consult Discharge Plan - Plan Referrals: Shawn Scott MD [Partnered Physician] - 07/20/17 9:30 am Tawny Ahumada CNP [Primary Care Provider] - 06/17/17 9:00 am Prescriptions: Apixaban [Eliquis] 5 mg PO BID #60 tablet <Navarro Roblero - Last Filed: 06/17/17 14:53> Date of Encounter: 06/17/17 - Assessment and plan (1) CHF exacerbation Current Visit: Yes Status: Acute Qualifiers: Heart failure type: systolic Qualified Code(s): I50.23 - Acute on chronic systolic (congestive) heart failure (2) COPD exacerbation Current Visit: Yes Status: Acute (3) Diabetes Current Visit: Yes Status: Acute Qualifiers: Diabetes mellitus type: type 2 Diabetes mellitus plastics fabricator and assembler insulin use: without plastics fabricator and assembler use Diabetes mellitus complication status: without complication Qualified Code(s): E11.9 - Type 2 diabetes mellitus without complications (4) Hypertension Current Visit: Yes Status: Acute Qualifiers: Hypertension type: essential hypertension Qualified Code(s): I10 - Essential (primary) hypertension (5) DVT prophylaxis Current Visit: Yes Status: Acute (6) New onset a-fib Current Visit: Yes Status: Acute (7) Acute respiratory failure with hypoxia Current Visit: Yes Status: Acute (8) Acute renal failure (ARF) Current Visit: Yes Status: Acute Qualifiers: Acute renal failure type: unspecified Qualified Code(s): N17.9 - Acute kidney failure, unspecified - Time Spent With Patient Total time spent is greater than 50% in coordination of care (as documented) at patient's floor/unit and/or counseling patient: - Constitutional Vitals: Temp Pulse Resp BP Pulse Ox 98.0 F 97 16 106/65 95 06/17/17 04:00 06/17/17 09:52 06/17/17 11:47 06/17/17 09:52 06/17/17 11:47 Internal Medicine: Result - Labs CBC & Chem 7: 06/17/17 05:03 06/17/17 05:03 Labs: Short CBC 06/17/17 Range/Units 05:03 WBC 12.9 H (4.3-11.1) K/mcL Hgb 12.0 L (12.9-16.9) g/dL Hct 40.8 (37.5-50.1) % Plt Count 212 (140-400) K/mcL Neutrophils # 8.8 (1.6-8.9) K/mcL BMP 06/17/17 05:03 Sodium 138 Potassium 4.6 Chloride 102 Carbon Dioxide 32 H BUN 38 H Creatinine 0.94 Glucose 138 H Calcium 8.6 - Attending Attestation I performed an independent interview and examine this patient. I agree with the findings, assessment, and plan of Dr. Parmar, internal medicine operations intern. My input and our discussion is reflected in his note. Patient continues to diurese well and is feeling better. Breathing has improved. He still remains on supple oxygen and we continue to attempt to wean this, titrating to an O2 sat of 88-92%. Patient does have a history of underlying COPD. Salcido catheter was removed. Patient's heart rate remains under good control, he continues on Elocon risk for new A. fib. Anticipate discharge tomorrow if continues to do well. All else as outlined above
[2017-06-18] MEDS: Ipratropium/Albuterol Neb 3 ML IH SCH ×4 (03:35→22:17)
[2017-06-18 05:01] LABS: Basophils % 0.4 %; Eosinophils # 0.1 K/mcL (0.0-0.6); Eosinophils % 1.1 %; Hematocrit 40.4 % (37.5-50.1); Hemoglobin 11.8 g/dL (12.9-16.9); Immature Granulocytes % 0.5 % (0-4); Lymphocytes # 2.1 K/mcL (0.6-4.6); Lymphocytes % 18.7 %; Mean Corpuscular HGB Conc 29.2 g/dL (31.6-35.5); Mean Corpuscular Hemoglobin 24.2 pg (28.0-33.3); Mean Corpuscular Volume 82.8 fL (83.0-100.0); Mean Platelet Volume 10.6 fL (9.4-12.4); Monocytes # 1.4 K/mcL (0.0-1.3); Monocytes % 12.2 %; Neutrophils # 7.4 K/mcL (1.6-8.9); Platelet Count 202 K/mcL (140-400); Red Blood Count 4.88 M/mcL (4.19-5.50); Red Cell Distribution Width 14.4 % (11.5-14.5); Segmented Neutrophils % 67.1 %
[2017-06-18 05:24] LABS: BUN/Creatinine Ratio 34 (6-26); Blood Urea Nitrogen 38 mg/dL (8-23); Calcium 8.8 mg/dL (8.6-10.3); Carbon Dioxide 34 mEq/L (23-29); Chloride 100 mEq/L (98-107); Glucose 175 mg/dL (70-105); Osmolality,Calculated 301 (280-300); Potassium 4.4 mEq/L (3.5-5.1); Sodium 139 mEq/L (136-145); eGFR For African Americans > 60 (> 60); eGFR For Non-African Americans > 60 (> 60)
[2017-06-18] MEDS: Insulin LISPRO 300 UNITS/3 ML VIAL SQ SCH ×4 (08:13→21:07)
[2017-06-18] MEDS: Apixaban 5 MG TABLET PO SCH ×2 (09:00→21:08)
[2017-06-18] MEDS: Aspirin Enteric Coated 81 MG Tablet PO SCH (09:00)
[2017-06-18] MEDS: Multivit/Ca/Min/Fe/FA 1 TAB TABLET PO SCH (09:00)
[2017-06-18] MEDS: Furosemide 40 MG TABLET PO SCH ×3 (09:00→17:33)
--- NOTE | 2017-06-18 14:33 | Internal Med Progress Note ---
<Venkat Parmar - Last Filed: 06/18/17 14:26> Date of Encounter: 06/18/17 Time of Encounter: 09:00 - Assessment and plan (1) CHF exacerbation Current Visit: Yes Status: Acute Assessment and plan: Patient is symptomatically improving, but on clinical exam contniues to be hypervolemic; swelling in legs, and crackles at the base of lungs. Repeat echo shows LVEF of 25-30%. Will most likely d/c tomorrow. After cath and lasix given yesterday patient has had UO of 2200 mL since. - continue lasix (will be d/c'ed with Lasix) - serial volume status exams - strict I/O - cardiac diet 1.5 L fluid and 2 g Na restriction. - Patient has retained fluid on post void. Ordered Tamsulosin. - was walked, and now qualifies for home o2. Will plan to d/c tomorrow Qualifiers: Heart failure type: systolic Qualified Code(s): I50.23 - Acute on chronic systolic (congestive) heart failure (2) COPD exacerbation Current Visit: Yes Status: Acute Assessment and plan: Provide Respiratory support as needed. - goal O2 is 88-92% - currently weaned off of NC O2 (3) Diabetes Current Visit: Yes Status: Acute Assessment and plan: Sliding scale insulin Qualifiers: Diabetes mellitus type: type 2 Diabetes mellitus intermodal dispatcher insulin use: without intermodal dispatcher use Diabetes mellitus complication status: without complication Qualified Code(s): E11.9 - Type 2 diabetes mellitus without complications (4) Hypertension Current Visit: Yes Status: Acute Assessment and plan: Continue home medication Qualifiers: Hypertension type: essential hypertension Qualified Code(s): I10 - Essential (primary) hypertension (5) DVT prophylaxis Current Visit: Yes Status: Acute Assessment and plan: Started on Eliquis (6) New onset a-fib Current Visit: Yes Status: Acute Assessment and plan: Newly developed A. fib. Heart rate is well controlled. - Continue beta pascual - continue eliquis (7) Acute respiratory failure with hypoxia Current Visit: Yes Status: Acute Assessment and plan: continue to provide respiratory support as needed. (8) Acute renal failure (ARF) Current Visit: Yes Status: Acute Assessment and plan: Resolved; continue to monitor Qualifiers: Acute renal failure type: unspecified Qualified Code(s): N17.9 - Acute kidney failure, unspecified - Time Spent With Patient Total time spent is greater than 50% in coordination of care (as documented) at patient's floor/unit and/or counseling patient: - Subjective Interval history: Mr baum is seen and examined today. He has no events overnight but does now complain of constipation. Patient denies SOB, CP, nausea, vomiting, fever. - Constitutional Vitals: Temp Pulse Resp BP Pulse Ox 97.8 F 86 20 111/71 94 06/18/17 07:25 06/18/17 09:03 06/18/17 10:13 06/18/17 09:03 06/18/17 12:30 General appearance: Present: cooperative, A&O X 3, no acute distress, answers questions appropriately - Head Head exam: Present: atraumatic, normocephalic - ENT ENT exam: Present: mucous membranes dry - Respiratory Respiratory exam: Present: CTAB - Cardiovascular Cardiovascular exam: Present: RRR - Extremities Exam Extremities exam: Absent: pedal edema Internal Medicine: Result - Labs CBC & Chem 7: 06/18/17 04:12 06/18/17 04:12 Labs: Short CBC 06/18/17 Range/Units 04:12 WBC 11.1 (4.3-11.1) K/mcL Hgb 11.8 L (12.9-16.9) g/dL Hct 40.4 (37.5-50.1) % Plt Count 202 (140-400) K/mcL Neutrophils # 7.4 (1.6-8.9) K/mcL BMP 06/18/17 04:12 Sodium 139 Potassium 4.4 Chloride 100 Carbon Dioxide 34 H BUN 38 H Creatinine 1.11 Glucose 175 H Calcium 8.8 - VTE Documentation of Mechanical Device: Graduated compression elastic hosiery Consult Discharge Plan - Plan Referrals: Shawn Scott MD [Partnered Physician] - 07/20/17 9:30 am Tawny Ahumada CNP [Primary Care Provider] - 06/17/17 9:00 am Prescriptions: Apixaban [Eliquis] 5 mg PO BID #60 tablet <Navarro Roblero - Last Filed: 06/18/17 15:01> Date of Encounter: 06/18/17 - Assessment and plan (1) CHF exacerbation Current Visit: Yes Status: Acute Qualifiers: Heart failure type: systolic Qualified Code(s): I50.23 - Acute on chronic systolic (congestive) heart failure (2) COPD exacerbation Current Visit: Yes Status: Acute (3) Diabetes Current Visit: Yes Status: Acute Qualifiers: Diabetes mellitus type: type 2 Diabetes mellitus intermodal dispatcher insulin use: without intermodal dispatcher use Diabetes mellitus complication status: without complication Qualified Code(s): E11.9 - Type 2 diabetes mellitus without complications (4) Hypertension Current Visit: Yes Status: Acute Qualifiers: Hypertension type: essential hypertension Qualified Code(s): I10 - Essential (primary) hypertension (5) DVT prophylaxis Current Visit: Yes Status: Acute (6) New onset a-fib Current Visit: Yes Status: Acute (7) Acute respiratory failure with hypoxia Current Visit: Yes Status: Acute (8) Acute renal failure (ARF) Current Visit: Yes Status: Acute Qualifiers: Acute renal failure type: unspecified Qualified Code(s): N17.9 - Acute kidney failure, unspecified - Time Spent With Patient Total time spent is greater than 50% in coordination of care (as documented) at patient's floor/unit and/or counseling patient: - Constitutional Vitals: Temp Pulse Resp BP Pulse Ox 97.8 F 86 20 111/71 94 06/18/17 07:25 06/18/17 09:03 06/18/17 10:13 06/18/17 09:03 06/18/17 12:30 Internal Medicine: Result - Labs CBC & Chem 7: 06/18/17 04:12 06/18/17 04:12 Labs: Short CBC 06/18/17 Range/Units 04:12 WBC 11.1 (4.3-11.1) K/mcL Hgb 11.8 L (12.9-16.9) g/dL Hct 40.4 (37.5-50.1) % Plt Count 202 (140-400) K/mcL Neutrophils # 7.4 (1.6-8.9) K/mcL BMP 06/18/17 04:12 Sodium 139 Potassium 4.4 Chloride 100 Carbon Dioxide 34 H BUN 38 H Creatinine 1.11 Glucose 175 H Calcium 8.8 - Attending Attestation I performed an independent interview and examine this patient. I agree with the findings, assessment, and plan of , internal medicine internal auditor. Pt is significantly improved. Still having good urine output with Lasix. Pt still has significant urinary retention issues and we will attempt to remove the Salcido. Flomax was started. If this does not work he may need to go home with intermittent straight catheterization and urology follow-up. Patient's currently weaned off oxygen and doing well. Anticipate discharge tomorrow if no new issues. All else as outlined above.
--- NOTE | 2017-06-18 16:14 | Discharge Summary ---
<Venkat Parmar - Last Filed: 06/18/17 16:01> Orders not resulted at time of discharge: Pending orders 06/14/17 08:00 CL Cardiac Catheterization [CL] Routine 06/14/17 09:13 NM traci perf SPECT multi [NM] Routine 06/19/17 04:00 BMP [Basic Metabolic Panel] AM 0400 CBC [Complete Blood Count] [HEME] AM 0400 06/20/17 04:00 BMP [Basic Metabolic Panel] AM 0400 CBC [Complete Blood Count] [HEME] AM 0400 06/21/17 04:00 BMP [Basic Metabolic Panel] AM 0400 CBC [Complete Blood Count] [HEME] AM 0400 - Discharge Diagnosis (1) CHF exacerbation Priority: Secondary Status: Acute Qualifiers: Heart failure type: systolic Qualified Code(s): I50.23 - Acute on chronic systolic (congestive) heart failure (2) COPD exacerbation Priority: Primary Status: Acute (3) Diabetes Priority: Secondary Status: Acute Qualifiers: Diabetes mellitus type: type 2 Diabetes mellitus [facility] insulin use: without middle or intermediate school principal use Diabetes mellitus complication status: without complication Qualified Code(s): E11.9 - Type 2 diabetes mellitus without complications (4) Hypertension Priority: Secondary Status: Acute Qualifiers: Hypertension type: essential hypertension Qualified Code(s): I10 - Essential (primary) hypertension (5) DVT prophylaxis Priority: Secondary Status: Acute (6) New onset a-fib Priority: Secondary Status: Acute (7) Acute respiratory failure with hypoxia Priority: Secondary Status: Acute (8) Acute renal failure (ARF) Priority: Secondary Status: Acute Qualifiers: Acute renal failure type: unspecified Qualified Code(s): N17.9 - Acute kidney failure, unspecified Hospital course: Mr. Kim is a 76 year old male who presented to [facility] ED with SOB. Patient was then found to be in Afib, started on eliquis and transferred to [facility]. Upon arrival cardio and pulm were consulted. At bostic patient remained rate controlled with Coreg 12.5 qd, and continued on Eliquis for anticoagulation. Patient had echo on this admission which showed LVEF 25%, and patients home lasix 40 BID was continued and patient was put on respiratory support. Patient symptoms resolved, and patient was scheduled for discharge but on day of discharge patient was oliguric. Salcido Cath was placed and patient urination increased. Void trial was ordered, and showed that patient had retained urination after void. PATient was started on Tamsulosin 0.4 mg qd. Patient was also found to be found in RICKY. Renal toxic medications were held. And Cr was resolved. Per cardiology recommendation patient to continue ASA, statin, BB, and ARB. Patient was educated to limit fluid intake to 1.5L and Na intake to 2 g. Patient to be worked up outpatient for urinary retention. Patient discharged with prescription Tamsuloxin 0.4 mg qd Patient will be further evaluated with Echo outpatient for AICD in 3 months by cardiology. Patient to have outpatient follow up appointment with Urology, cardiology, and PCP. - Time Spent with Patient Total time spent providing and/or coordinating discharge services: - Discharge Medications Prescriptions: Apixaban [Eliquis] 5 mg PO BID #60 tablet Home Medications: Albuterol Sulfate [Ventolin Hfa] 2 puff IH Q6H PRN 06/11/17 [History] Aspirin [Lo-Dose Aspirin EC] 81 mg PO DAILY 06/11/17 [History] Atorvastatin [Lipitor] 40 mg PO HS 06/11/17 [History] Carvedilol [Coreg] 25 mg PO BID 06/11/17 [History] Losartan Potassium [Cozaar] 100 mg PO DAILY 06/11/17 [History] Multivitamin [One Daily Essential] 1 tab PO DAILY 06/11/17 [History] Ramona-3/Dha/Epa/Fish Oil [Fish Oil 1,000 mg Softgel] 1 cap PO TID 06/11/17 [ History] hydroCHLOROthiazide [Hydrochlorothiazide] 50 mg PO DAILY 06/11/17 [History] metFORMIN [Glucophage] 500 mg PO BIDWM 06/11/17 [History] Apixaban [Eliquis] 5 mg PO BID #60 tablet 06/15/17 [Rx] Ezetimibe [Zetia] 40 mg PO DAILY 06/17/17 [History] Allergies/Adverse Reactions: 3 Allergy/AdvReac Type Severity Reaction Status Date / Time lovastatin [From Mevacor] AdvReac See Verified 06/11/17 09:08 Comments Date of admission: 06/10/17 19:43 Primary care physician: Tawny Ahumada CNP Consults: 06/10/17 22:22 Consult to Cardiology [CONS] Routine Comment: Consulting Provider: Cardiology Janet Reason for Consult: Severe systolic CHF Call Completed: No 06/15/17 09:33 Consult to Nurse Navigator [CONS] Routine Comment: Acute resp fx; CHF exac; New Afib 06/15/17 09:51 Consult to Physical Therapy [CONS] Routine Comment: Evaluate, develop and implement POC Reason for Consult: home health? SNF? Does patient have active BEDREST order?: No Is patient medically & hemodynamically stable?: Yes Patient assessed for mobility or mobilized this visit?: Yes - Constitutional Vitals: Temp Pulse Resp BP Pulse Ox 97.8 F 86 20 111/71 94 06/18/17 07:25 06/18/17 09:03 06/18/17 10:13 06/18/17 09:03 06/18/17 12:30 General appearance: Present: cooperative, A&O X 3, no acute distress, answers questions appropriately - Patient Status Disposition: Home, Self-Care Condition: Good - Discharge Instructions Instructions: Heart Failure (DC), Atrial Fibrillation (DC), Acute Respiratory Distress Syndrome (DC), Salcido Catheter Placement and Care (GEN), Diabetes Mellitus Type 2 in Adults (DC), Chronic Obstructive Pulmonary Disease (DC), Chronic Hypertension (DC), Urinary Leg Bag (GEN) Follow Up With: Shawn Scott MD [Partnered Physician] - 07/20/17 9:30 am Tawny Ahumada CNP [Primary Care Provider] - 06/17/17 9:00 am - VTE Documentation of Mechanical Device: Graduated compression elastic hosiery <Navarro Roblero - Last Filed: 06/19/17 14:15> Orders not resulted at time of discharge: Pending orders 06/14/17 08:00 CL Cardiac Catheterization [CL] Routine 06/14/17 09:13 NM traci perf SPECT multi [NM] Routine 06/20/17 04:00 BMP [Basic Metabolic Panel] AM 0400 CBC [Complete Blood Count] [HEME] AM 0400 06/21/17 04:00 BMP [Basic Metabolic Panel] AM 0400 CBC [Complete Blood Count] [HEME] AM 0400 Date of Encounter: 06/19/17 Time of Encounter: 14:00 - Discharge Diagnosis (1) CHF exacerbation Status: Acute Qualifiers: Heart failure type: systolic Qualified Code(s): I50.23 - Acute on chronic systolic (congestive) heart failure (2) COPD exacerbation Status: Acute (3) Diabetes Status: Acute Qualifiers: Diabetes mellitus type: type 2 Diabetes mellitus middle or intermediate school principal insulin use: without middle or intermediate school principal use Diabetes mellitus complication status: without complication Qualified Code(s): E11.9 - Type 2 diabetes mellitus without complications (4) Hypertension Status: Acute Qualifiers: Hypertension type: essential hypertension Qualified Code(s): I10 - Essential (primary) hypertension (5) DVT prophylaxis Status: Acute (6) New onset a-fib Status: Acute (7) Acute respiratory failure with hypoxia Status: Acute (8) Acute renal failure (ARF) Status: Acute Qualifiers: Acute renal failure type: unspecified Qualified Code(s): N17.9 - Acute kidney failure, unspecified (9) Acute urinary retention Status: Acute Hospital course: Mr. Kim is a 76 year old male - Time Spent with Patient Total time spent providing and/or coordinating discharge services: Date of admission: 06/10/17 19:43 Primary care physician: Tawny Ahumada CNP Consults: 06/10/17 22:22 Consult to Cardiology [CONS] Routine Comment: Consulting Provider: Cardiology Janet Reason for Consult: Severe systolic CHF Call Completed: No 06/15/17 09:33 Consult to Nurse Navigator [CONS] Routine Comment: Acute resp fx; CHF exac; New Afib 06/15/17 09:51 Consult to Physical Therapy [CONS] Routine Comment: Evaluate, develop and implement POC Reason for Consult: home health? SNF? Does patient have active BEDREST order?: No Is patient medically & hemodynamically stable?: Yes Patient assessed for mobility or mobilized this visit?: Yes - Constitutional Vitals: Temp Pulse Resp BP Pulse Ox 98.2 F 87 16 106/65 93 06/19/17 07:54 06/19/17 07:54 06/19/17 07:54 06/19/17 07:54 06/19/17 08:04 - Patient Status Functional capacity at discharge: independent ambulation Overall status at discharge: patient is back to baseline - Attending Attestation Please see my addendum in progress note
[2017-06-19 03:28] LABS: Basophils % 0.3 %; Eosinophils # 0.1 K/mcL (0.0-0.6); Eosinophils % 1.4 %; Hematocrit 40.2 % (37.5-50.1); Immature Granulocytes % 0.8 % (0-4); Lymphocytes # 2.3 K/mcL (0.6-4.6); Lymphocytes % 22.3 %; Mean Corpuscular HGB Conc 29.9 g/dL (31.6-35.5); Mean Corpuscular Hemoglobin 24.5 pg (28.0-33.3); Mean Corpuscular Volume 82.2 fL (83.0-100.0); Monocytes # 1.3 K/mcL (0.0-1.3); Monocytes % 12.3 %; Neutrophils # 6.4 K/mcL (1.6-8.9); Platelet Count 228 K/mcL (140-400); Red Blood Count 4.89 M/mcL (4.19-5.50); Red Cell Distribution Width 14.2 % (11.5-14.5); Segmented Neutrophils % 62.9 %
[2017-06-19 03:45] LABS: BUN/Creatinine Ratio 33 (6-26); Blood Urea Nitrogen 36 mg/dL (8-23); Calcium 8.9 mg/dL (8.6-10.3); Carbon Dioxide 33 mEq/L (23-29); Chloride 101 mEq/L (98-107); Glucose 135 mg/dL (70-105); Osmolality,Calculated 300 (280-300); Potassium 4.6 mEq/L (3.5-5.1); Sodium 140 mEq/L (136-145); eGFR For African Americans > 60 (> 60); eGFR For Non-African Americans > 60 (> 60)
[2017-06-19] MEDS: Ipratropium/Albuterol Neb 3 ML IH SCH ×3 (04:18→15:49)
[2017-06-19] MEDS: Insulin LISPRO 300 UNITS/3 ML VIAL SQ SCH ×3 (07:59→16:41)
[2017-06-19] MEDS: Apixaban 5 MG TABLET PO SCH ×2 (08:00→16:41)
[2017-06-19] MEDS: Aspirin Enteric Coated 81 MG Tablet PO SCH (08:00)
[2017-06-19] MEDS: Multivit/Ca/Min/Fe/FA 1 TAB TABLET PO SCH (08:00)
[2017-06-19] MEDS: Furosemide 40 MG TABLET PO SCH ×3 (08:00→16:41)
--- NOTE | 2017-06-19 08:31 | Internal Med Progress Note ---
<Navarro Roblero - Last Filed: 06/19/17 14:11> Date of Encounter: 06/19/17 - Assessment and plan (1) CHF exacerbation Current Visit: Yes Status: Acute Qualifiers: Heart failure type: systolic Qualified Code(s): I50.23 - Acute on chronic systolic (congestive) heart failure (2) COPD exacerbation Current Visit: Yes Status: Acute (3) Diabetes Current Visit: Yes Status: Acute Qualifiers: Diabetes mellitus type: type 2 Diabetes mellitus [employer] insulin use: without [employer] use Diabetes mellitus complication status: without complication Qualified Code(s): E11.9 - Type 2 diabetes mellitus without complications (4) Hypertension Current Visit: Yes Status: Acute Qualifiers: Hypertension type: essential hypertension Qualified Code(s): I10 - Essential (primary) hypertension (5) DVT prophylaxis Current Visit: Yes Status: Acute (6) New onset a-fib Current Visit: Yes Status: Acute (7) Acute respiratory failure with hypoxia Current Visit: Yes Status: Acute (8) Acute renal failure (ARF) Current Visit: Yes Status: Acute Qualifiers: Acute renal failure type: unspecified Qualified Code(s): N17.9 - Acute kidney failure, unspecified (9) Acute urinary retention Current Visit: Yes Status: Acute - Time Spent With Patient Total time spent is greater than 50% in coordination of care (as documented) at patient's floor/unit and/or counseling patient: - Constitutional Vitals: Temp Pulse Resp BP Pulse Ox 98.2 F 87 16 106/65 93 06/19/17 07:54 06/19/17 07:54 06/19/17 07:54 06/19/17 07:54 06/19/17 08:04 Internal Medicine: Result - Labs CBC & Chem 7: 06/19/17 02:35 06/19/17 02:35 Labs: Short CBC 06/19/17 Range/Units 02:35 WBC 10.2 (4.3-11.1) K/mcL Hgb 12.0 L (12.9-16.9) g/dL Hct 40.2 (37.5-50.1) % Plt Count 228 (140-400) K/mcL Neutrophils # 6.4 (1.6-8.9) K/mcL BMP 06/19/17 02:35 Sodium 140 Potassium 4.6 Chloride 101 Carbon Dioxide 33 H BUN 36 H Creatinine 1.08 Glucose 135 H Calcium 8.9 Consult Discharge Plan - Plan Instructions: Heart Failure (DC), Atrial Fibrillation (DC), Acute Respiratory Distress Syndrome (DC), Yeh Catheter Placement and Care (GEN), Diabetes Mellitus Type 2 in Adults (DC), Chronic Obstructive Pulmonary Disease (DC), Chronic Hypertension (DC), Urinary Leg Bag (GEN) Referrals: Shawn Scott MD [Partnered Physician] - 07/20/17 9:30 am Tawny Ahumada CNP [Primary Care Provider] - 06/17/17 9:00 am Prescriptions: Apixaban [Eliquis] 5 mg PO BID #60 tablet - Attending Attestation I performed an independent interview and examine this patient. I agree with the findings, assessment, and plan of Dr. Foley, internal medicine resident. Please see discharge summary dictated yesterday, as well as my progress note for further details. Patient is stable for discharge. His CHF is compensated. He will continue on Coreg 25 mg by mouth twice a day, Cozaar 100 mg by mouth daily, he is also on aspirin, and Apixaban for his Afib. Patient continues to have issues with urinary retention. Unfortunately will likely need to send home with a Yeh catheter and leg bag with urology follow-up next week. We will continue Flomax. All else as outlined above. Exam: General no acute distress Skin warm and dry Lungs diminished breath sounds at the bases otherwise clear Heart irregular rhythm, normal rate Abdomen nontender [place] show no significant edema 42 minutes spent on discharge and coordination of care. <Shawn Foley - Last Filed: 06/19/17 15:17> Date of Encounter: 06/19/17 Time of Encounter: 08:31 - Assessment and plan (1) CHF exacerbation Current Visit: Yes Status: Acute Assessment and plan: Patient is improving, euvolemic; no swelling in legs, and CTAB. Repeat echo shows LVEF of 25-30%. Continue Lasix Cardiac diet 1.5 L fluid and 2 g Na restriction. Will plan to d/c today Qualifiers: Heart failure type: systolic Qualified Code(s): I50.23 - Acute on chronic systolic (congestive) heart failure (2) COPD exacerbation Current Visit: Yes Status: Acute Assessment and plan: Resume home meds Now qualifies for home O2. Goal O2 is 88-92% Follow up with pulmonology (3) Acute respiratory failure with hypoxia Current Visit: Yes Status: Acute Assessment and plan: 6 minute walk test performed, patient qualified for home o2. Continue home O2 at 3L Follow up with pulmonology and PCP as an outpatient (4) Hypertension Current Visit: Yes Status: Acute Assessment and plan: Continue home medication Qualifiers: Hypertension type: essential hypertension Qualified Code(s): I10 - Essential (primary) hypertension (5) New onset a-fib Current Visit: Yes Status: Acute Assessment and plan: Newly developed A. fib. Heart rate is well controlled. Continue beta pascual Continue Eliquis (6) Acute urinary retention Current Visit: Yes Status: Acute Assessment and plan: Patient has inability to void. Ordered Tamsulosin. D/c with yeh in place and urology follow up (7) Acute renal failure (ARF) Current Visit: Yes Status: Acute Assessment and plan: Resolved; continue to monitor Qualifiers: Acute renal failure type: unspecified Qualified Code(s): N17.9 - Acute kidney failure, unspecified (8) Diabetes Current Visit: Yes Status: Acute Assessment and plan: Sliding scale insulin Resume home meds Qualifiers: Diabetes mellitus type: type 2 Diabetes mellitus nursing home insulin use: without [employer] use Diabetes mellitus complication status: without complication Qualified Code(s): E11.9 - Type 2 diabetes mellitus without complications (9) DVT prophylaxis Current Visit: Yes Status: Acute Assessment and plan: Started on Eliquis - Time Spent With Patient Total time spent is greater than 50% in coordination of care (as documented) at patient's floor/unit and/or counseling patient: - Subjective Interval history: Patient seen and examined. Bladder scan performed at 0915 revealed 680 ml in bladder. Patient is unable to self cath himself and is agreeable to discharge with yeh in place and urology follow up. He denies any other c/o and is eager to go home. - Constitutional Vitals: Temp Pulse Resp BP Pulse Ox 98.2 F 87 16 106/65 93 06/19/17 07:54 06/19/17 07:54 06/19/17 07:54 06/19/17 07:54 06/19/17 08:04 General appearance: Present: cooperative, A&O X 3, no acute distress, answers questions appropriately - Head Head exam: Present: atraumatic, normocephalic - Eye Eye exam: Present: PERRL, conjuntiva pink, sclera anicteric Pupils: Present: PERRL - ENT ENT exam: Present: mucous membranes moist, normal oropharynx - Neck Neck exam general surgery: Present: supple, trachea midline. Absent: lymphadenopathy - Respiratory Respiratory exam: Present: CTAB. Absent: accessory muscle use, rales, rhonchi, wheezes - Cardiovascular Cardiovascular exam: Present: RRR, +S1, +S2. Absent: diastolic murmur, gallop, rubs, systolic murmur - GI/Abdominal GI/Abdominal exam: Present: normal bowel sounds, soft, no peritoneal signs. Absent: distended, tenderness - Extremities Exam Extremities exam: Present: warm, radial pulses palpable and symmetrical. Absent : calf tenderness, cyanotic, pedal edema - Back Exam Back exam: Present: normal inspection. Absent: tenderness - Neurological Exam Neurological exam: Present: CN II-XII intact, oriented X3, no focal deficits. Absent: pronater drift, facial droop, speech deficit - Psychiatric Psychiatric exam: Present: normal affect, normal mood - Skin Skin exam: Present: dry, intact, normal color, warm Internal Medicine: Result - Labs CBC & Chem 7: 06/19/17 02:35 06/19/17 02:35 Labs: Short CBC 06/19/17 Range/Units 02:35 WBC 10.2 (4.3-11.1) K/mcL Hgb 12.0 L (12.9-16.9) g/dL Hct 40.2 (37.5-50.1) % Plt Count 228 (140-400) K/mcL Neutrophils # 6.4 (1.6-8.9) K/mcL BMP 06/19/17 02:35 Sodium 140 Potassium 4.6 Chloride 101 Carbon Dioxide 33 H BUN 36 H Creatinine 1.08 Glucose 135 H Calcium 8.9 - Pulse Oximetry Interpretation Digit-Finger Pulse Oximetry Readin (3L O2 via NC) - VTE Documentation of Mechanical Device: Graduated compression elastic hosiery
[2017-06-19 16:36] VITALS: BP 113/70
== END 2017-06-19 18:14 | disposition home or self-care (01) | DRG 291 ==
LOC: ICNU 19:43 → SUATTDRO 19:43 → 2NENU 06-11 13:06
PROVIDERS: ADMIT Internal Medicine Pulmonary Disease; ATTEND Hospitalist

== ENCOUNTER 2020-03-16 05:48 | Inpatient (IN) ==
[2020-03-16] MEDS ORDERED: 0.9 % Sodium Chloride 1,000 ML IVC ONE (06:09)
[2020-03-16] MEDS ORDERED: Ipratropium/Albuterol Neb 3 ML IH ONE (06:20)
[2020-03-16] MEDS ORDERED: Dexamethasone 4 MG/ML VIAL IVP ONE (06:20)
[2020-03-16] MEDS ORDERED: Furosemide 40 MG/4 ML VIAL IVP ONE (06:21)
[2020-03-16 06:29] LABS: Basophils % 0.3 %; Eosinophils % 0.3 %; Hematocrit 49.2 % (37.5-50.1); Hemoglobin 14.4 g/dL (12.9-16.9); Immature Granulocytes % 0.5 % (0-4); Lymphocytes # 1.3 K/mcL (0.6-4.6); Lymphocytes % 11.3 %; Mean Corpuscular HGB Conc 29.3 g/dL (31.6-35.5); Mean Corpuscular Hemoglobin 24.6 pg (28.0-33.3); Mean Platelet Volume 10.9 fL (9.4-12.4); Monocytes # 1.1 K/mcL (0.0-1.3); Monocytes % 9.7 %; Neutrophils # 8.7 K/mcL (1.6-8.9); Platelet Count 282 K/mcL (140-400); Red Blood Count 5.86 M/mcL (4.19-5.50); Red Cell Distribution Width 16.2 % (11.5-14.5); Segmented Neutrophils % 77.9 %; White Blood Count 11.1 K/mcL (4.3-11.1)
[2020-03-16 06:38] LABS: INR 1.1; Prothrombin Time 12.7 Seconds (9.4-12.1)
[2020-03-16 06:40] LABS: Activated Partial Thrombo Time 34.1 Seconds (26.0-36.0)
[2020-03-16 06:45] LABS: Bilirubin,Urine Negative (Negative); Blood,Urine Negative (Negative); Clarity,Urine Clear (Clear); Color,Urine Light-Yellow (Yellow); Glucose,Urine (UA) Normal (Normal); Hyaline Casts,Urine Few per lpf (None Seen); Ketones,Urine Negative (Negative); Leukocyte Esterase,Urine Negative (Negative); Mucus,Urine Few per lpf (None-Few); Nitrite,Urine Negative (Negative); Protein,Urine 200 mg/dL (Neg-Trace); RBC,Urine 0-3 per hpf (0-3); Specific Gravity,Urine 1.018 (1.010-1.025); Urobilinogen,Urine Normal (Normal); WBC,Urine 0-3 per hpf (0-3)
[2020-03-16 06:51] LABS: Albumin 3.9 g/dL (3.5-5.7); Bilirubin,Direct 0.2 mg/dL (0.0-0.2); Bilirubin,Indirect 0.8 mg/dL (0.0-1.0); Calcium 9.7 mg/dL (8.6-10.3); Globulin 3.8 g/dL (2.4-3.5); Potassium 4.6 mEq/L (3.5-5.1); Total Protein 7.7 g/dL (6.4-8.9)
[2020-03-16] MEDS ORDERED: Azithromycin 500 MG in 0.9 % Sodium Chloride 250 ML IVPB ONE (06:54)
[2020-03-16 07:11] LABS: Troponin I 0.1 ng/mL (< 0.04)
[2020-03-16] MEDS ORDERED: Aspirin 81 MG TAB.CHEW PO ONE (07:22)
[2020-03-16] MEDS ORDERED: DilTIAZem 50 MG/50 ML IV.SOLN IVC SCH (07:30)
[2020-03-16] MEDS ORDERED: *HR* Digoxin 0.5 MG/2 ML AMPUL IVP ONE (07:46)
[2020-03-16] MEDS ORDERED: Naloxone 0.4 MG/ML INJ IVP PRN (08:18)
[2020-03-16] MEDS ORDERED: Ondansetron 4 MG/2 ML VIAL IVP PRN (08:18)
[2020-03-16] MEDS ORDERED: *HR* Heparin 5,000 UNIT/ML VIAL IVP PRN (08:19)
[2020-03-16] MEDS ORDERED: *HR* Dextrose 50 % in Water (Vial) 50 ML VIAL IVP PRN (08:38)
[2020-03-16] MEDS ORDERED: Dextrose Gel 15 GM/37.5 ML TUBE PO PRN ×2 (08:38)
[2020-03-16] MEDS ORDERED: D5% in Water 1,000 ML IVC PRN (08:38)
[2020-03-16] MEDS ORDERED: Perflutren Lipid Microsphere 1.3 ML in 0.9 % Sodium Chloride 8.7 ML IVP PRN (08:52)
[2020-03-16] MEDS: Insulin LISPRO 300 UNITS/3 ML VIAL SUBQ SCH ×2 (11:48→17:10)
[2020-03-16] MEDS: Heparin 25,000UNIT/250ML 1/2NS 25,000 UNIT/250 ML IV.SOLN IVC SCH (11:48)
[2020-03-16] MEDS ORDERED: *HR* LORazepam 2 MG/ML VIAL IVP ONE (14:05)
[2020-03-16] MEDS: Levalbuterol Neb 1.25 MG/3 ML IH SCH ×2 (16:09→22:40)
[2020-03-16] MEDS: Furosemide 40 MG/4 ML VIAL IVP SCH (17:09)
[2020-03-16] MEDS: *HR* Heparin 5,000 UNIT/ML VIAL IVP PRN (19:02)
[2020-03-16] MEDS: Insulin DETEMIR 100 UNIT/ML X5UNITS SUBQ SCH (20:36)
[2020-03-16] MEDS: Metoprolol XL (24 HR) Succ 50 MG TAB.ER.24H PO SCH (21:57)
[2020-03-17 01:38] LABS: Basophils % 0.1 %
[2020-03-17 01:40] LABS: Hematocrit 47.3 % (37.5-50.1); Hemoglobin 13.3 g/dL (12.9-16.9); Immature Granulocytes % 0.7 % (0-4); Lymphocytes # 0.9 K/mcL (0.6-4.6); Lymphocytes % 10.5 %; Mean Corpuscular HGB Conc 28.1 g/dL (31.6-35.5); Mean Corpuscular Hemoglobin 24.4 pg (28.0-33.3); Mean Corpuscular Volume 86.6 fL (83.0-100.0); Mean Platelet Volume 11.4 fL (9.4-12.4); Monocytes # 0.9 K/mcL (0.0-1.3); Monocytes % 10.6 %; Neutrophils # 6.6 K/mcL (1.6-8.9); Platelet Count 251 K/mcL (140-400); Red Blood Count 5.46 M/mcL (4.19-5.50); Red Cell Distribution Width 16.3 % (11.5-14.5); Segmented Neutrophils % 78.1 %; White Blood Count 8.5 K/mcL (4.3-11.1)
[2020-03-17 01:57] LABS: Calcium 8.9 mg/dL (8.6-10.3); Potassium 5.3 mEq/L (3.5-5.1)
[2020-03-17] MEDS: Levalbuterol Neb 1.25 MG/3 ML IH SCH ×4 (03:56→21:55)
[2020-03-17] MEDS: Metoprolol XL (24 HR) Succ 50 MG TAB.ER.24H PO SCH ×2 (08:41→21:02)
[2020-03-17] MEDS: Insulin LISPRO 300 UNITS/3 ML VIAL SUBQ SCH ×3 (08:43→17:05)
[2020-03-17] MEDS: Furosemide 40 MG/4 ML VIAL IVP SCH ×2 (08:43→17:06)
[2020-03-17] MEDS: Heparin 25,000UNIT/250ML 1/2NS 25,000 UNIT/250 ML IV.SOLN IVC SCH (08:44)
[2020-03-17] MEDS: Aspirin 325 MG TABLET PO SCH (11:34)
[2020-03-17 13:48] LABS: Troponin I 0.54 ng/mL (< 0.04)
[2020-03-17 14:25] LABS: Calcium 9.1 mg/dL (8.6-10.3)
[2020-03-17] MEDS: Insulin DETEMIR 100 UNIT/ML X5UNITS SUBQ SCH (21:02)
[2020-03-18] MEDS: Levalbuterol Neb 1.25 MG/3 ML IH SCH ×4 (03:29→21:53)
[2020-03-18] MEDS ORDERED: *HR* LORazepam 0.5 MG TABLET PO ONE (04:10)
[2020-03-18 07:20] LABS: Basophils % 0.4 %
[2020-03-18 07:22] LABS: Eosinophils # 0.1 K/mcL (0.0-0.6); Eosinophils % 0.7 %; Hematocrit 49.5 % (37.5-50.1); Hemoglobin 13.6 g/dL (12.9-16.9); Immature Granulocytes % 0.6 % (0-4); Lymphocytes # 1.6 K/mcL (0.6-4.6); Lymphocytes % 15.4 %; Mean Corpuscular HGB Conc 27.5 g/dL (31.6-35.5); Mean Corpuscular Hemoglobin 24.2 pg (28.0-33.3); Mean Corpuscular Volume 87.9 fL (83.0-100.0); Mean Platelet Volume 11.5 fL (9.4-12.4); Neutrophils # 7.6 K/mcL (1.6-8.9); Platelet Count 264 K/mcL (140-400); Red Blood Count 5.63 M/mcL (4.19-5.50); Red Cell Distribution Width 16.4 % (11.5-14.5); Segmented Neutrophils % 72.9 %; White Blood Count 10.4 K/mcL (4.3-11.1)
[2020-03-18] MEDS: Heparin 25,000UNIT/250ML 1/2NS 25,000 UNIT/250 ML IV.SOLN IVC SCH ×2 (07:25→21:37)
[2020-03-18] MEDS: Furosemide 40 MG/4 ML VIAL IVP SCH ×2 (07:27→15:58)
[2020-03-18] MEDS: Metoprolol XL (24 HR) Succ 50 MG TAB.ER.24H PO SCH ×2 (07:28→19:52)
[2020-03-18] MEDS: Aspirin 325 MG TABLET PO SCH (07:28)
[2020-03-18] MEDS: Insulin LISPRO 300 UNITS/3 ML VIAL SUBQ SCH ×3 (07:33→15:59)
[2020-03-18 07:40] LABS: Calcium 9.3 mg/dL (8.6-10.3); Potassium 6.2 mEq/L (3.5-5.1)
[2020-03-18 07:54] LABS: Anisocytosis 1+ (Not Present); Hypochromasia Present (Not Present)
[2020-03-18 07:55] LABS: Large Platelets Present (Not Present); Stomatocytes 1+ (Not Present)
[2020-03-18 07:56] LABS: Platelet Estimate Normal (Normal)
[2020-03-18] MEDS: *HR* Heparin 5,000 UNIT/ML VIAL IVP PRN ×2 (08:04→16:45)
[2020-03-18] MEDS: allopurinoL 100 MG TABLET PO SCH (11:48)
[2020-03-18] MEDS ORDERED: Barium Sulfate 1 TAB TABLET PO ONE (14:14)
[2020-03-18] MEDS ORDERED: Simethicone/Sodium Bic/Citr Ac 1 EACH GRAN.EF.PK PO ONE (14:14)
[2020-03-18] MEDS ORDERED: E-Z-PAQUE (BARIUM SULF) SUSP 1 BOTTLE PO ONE (14:14)
[2020-03-18] MEDS ORDERED: E-Z-HD (BARIUM SULF) SUSPENSION PO ONE (14:14)
[2020-03-18] MEDS: Insulin DETEMIR 100 UNIT/ML X5UNITS SUBQ SCH (19:52)
[2020-03-18] MEDS: Spironolactone 25 MG TABLET PO SCH (19:53)
[2020-03-18] MEDS: Melatonin 3 MG TABLET PO PRN (21:57)
[2020-03-19] MEDS ORDERED: *HR* LORazepam 0.5 MG TABLET PO ONE (03:13)
[2020-03-19] MEDS: Levalbuterol Neb 1.25 MG/3 ML IH SCH ×4 (03:44→22:18)
[2020-03-19 05:50] LABS: Calcium 9.2 mg/dL (8.6-10.3); Potassium 5.5 mEq/L (3.5-5.1)
[2020-03-19 05:52] LABS: Red Cell Distribution Width 16.2 % (11.5-14.5)
[2020-03-19 05:54] LABS: Basophils % 0.4 %; Eosinophils # 0.1 K/mcL (0.0-0.6); Eosinophils % 1.6 %; Hematocrit 45.6 % (37.5-50.1); Hemoglobin 13.1 g/dL (12.9-16.9); Immature Granulocytes % 0.6 % (0-4); Lymphocytes # 1.6 K/mcL (0.6-4.6); Lymphocytes % 18.9 %; Mean Corpuscular HGB Conc 28.7 g/dL (31.6-35.5); Mean Corpuscular Volume 86.9 fL (83.0-100.0); Mean Platelet Volume 11.6 fL (9.4-12.4); Monocytes # 0.9 K/mcL (0.0-1.3); Monocytes % 11.2 %; Platelet Count 243 K/mcL (140-400); Red Blood Count 5.25 M/mcL (4.19-5.50); Segmented Neutrophils % 67.3 %; White Blood Count 8.2 K/mcL (4.3-11.1)
[2020-03-19 06:12] LABS: Neutrophils # 5.5 K/mcL (1.6-8.9)
[2020-03-19 07:21] LABS: Platelet Estimate Normal (Normal)
[2020-03-19] MEDS: Furosemide 40 MG/4 ML VIAL IVP SCH ×2 (08:23→17:22)
[2020-03-19] MEDS: Insulin LISPRO 300 UNITS/3 ML VIAL SUBQ SCH ×3 (08:23→17:23)
[2020-03-19] MEDS: Ascorbic Acid 500 MG TABLET PO SCH (08:24)
[2020-03-19] MEDS: Aspirin 325 MG TABLET PO SCH (08:24)
[2020-03-19] MEDS: Spironolactone 25 MG TABLET PO SCH ×2 (08:24→20:58)
[2020-03-19] MEDS: allopurinoL 100 MG TABLET PO SCH (08:24)
[2020-03-19] MEDS: Metoprolol XL (24 HR) Succ 50 MG TAB.ER.24H PO SCH ×2 (08:25→20:57)
[2020-03-19] MEDS: Multivit/Ca/Min/Fe/FA 1 TAB TABLET PO SCH (08:25)
[2020-03-19] MEDS: Isosorbide MONOnitrate (24 HR) 30 MG TAB.ER.24H PO SCH (08:25)
[2020-03-19] MEDS: Heparin 25,000UNIT/250ML 1/2NS 25,000 UNIT/250 ML IV.SOLN IVC SCH (14:57)
[2020-03-19] MEDS: Insulin DETEMIR 100 UNIT/ML X5UNITS SUBQ SCH (20:58)
[2020-03-19] MEDS: Melatonin 3 MG TABLET PO PRN (22:02)
[2020-03-20] MEDS: Levalbuterol Neb 1.25 MG/3 ML IH SCH ×4 (03:45→22:48)
[2020-03-20 05:02] LABS: Basophils % 0.5 %; Hemoglobin 12.9 g/dL (12.9-16.9)
[2020-03-20 05:03] LABS: Eosinophils # 0.2 K/mcL (0.0-0.6); Hematocrit 45.3 % (37.5-50.1); Lymphocytes # 1.9 K/mcL (0.6-4.6); Lymphocytes % 23.5 %; Mean Corpuscular HGB Conc 28.5 g/dL (31.6-35.5); Mean Corpuscular Hemoglobin 24.6 pg (28.0-33.3); Mean Corpuscular Volume 86.5 fL (83.0-100.0); Mean Platelet Volume 10.8 fL (9.4-12.4); Monocytes # 0.8 K/mcL (0.0-1.3); Monocytes % 9.4 %; Neutrophils # 5.1 K/mcL (1.6-8.9); Platelet Count 257 K/mcL (140-400); Red Blood Count 5.24 M/mcL (4.19-5.50); Red Cell Distribution Width 16.1 % (11.5-14.5); Segmented Neutrophils % 63.6 %
[2020-03-20 05:16] LABS: Calcium 9.1 mg/dL (8.6-10.3); Potassium 4.9 mEq/L (3.5-5.1)
[2020-03-20] MEDS: Heparin 25,000UNIT/250ML 1/2NS 25,000 UNIT/250 ML IV.SOLN IVC SCH ×2 (05:50→20:36)
[2020-03-20] MEDS: Insulin LISPRO 300 UNITS/3 ML VIAL SUBQ SCH ×3 (09:15→18:05)
[2020-03-20] MEDS: Ascorbic Acid 500 MG TABLET PO SCH (09:15)
[2020-03-20] MEDS: Aspirin 325 MG TABLET PO SCH (09:16)
[2020-03-20] MEDS: Spironolactone 25 MG TABLET PO SCH ×2 (09:16→20:28)
[2020-03-20] MEDS: Multivit/Ca/Min/Fe/FA 1 TAB TABLET PO SCH (09:17)
[2020-03-20] MEDS: allopurinoL 100 MG TABLET PO SCH (09:17)
[2020-03-20] MEDS: Metoprolol XL (24 HR) Succ 50 MG TAB.ER.24H PO SCH ×2 (09:17→20:28)
[2020-03-20] MEDS: Isosorbide MONOnitrate (24 HR) 30 MG TAB.ER.24H PO SCH (09:18)
[2020-03-20] MEDS: Furosemide 40 MG/4 ML VIAL IVP SCH ×2 (09:18→18:06)
[2020-03-20 12:23] LABS: ABG Base Excess 8 mEq/L (-2 to 3); ABG HCO3 34 mEq/L (21-27); ABG Oxygen Saturation 77 % (95-98); ABG PCO2 51 mmHg (35-45); ABG PH 7.43 pH Units (7.32-7.45); ABG PO2 41 mmHg (85-104); ABG TCO2 35 mEq/L (20-26); Blood Gas Modality PC/PS; Blood Gas Pressure Support 14 cm H2O
[2020-03-20] MEDS ORDERED: Lidocaine -MPF 2% 2 ML VIAL ONE (12:42)
[2020-03-20] MEDS ORDERED: *HR* Propofol 200 MG/20 ML VIAL IVP ONE (12:42)
[2020-03-20] MEDS: Insulin DETEMIR 100 UNIT/ML X5UNITS SUBQ SCH (20:34)
[2020-03-21 04:20] LABS: Basophils # 0.1 K/mcL (0.0-0.2); Basophils % 0.7 %; Eosinophils # 0.1 K/mcL (0.0-0.6); Eosinophils % 1.7 %; Hematocrit 46.3 % (37.5-50.1); Hemoglobin 13.1 g/dL (12.9-16.9); Immature Granulocytes % 1.1 % (0-4); Lymphocytes # 2.1 K/mcL (0.6-4.6); Lymphocytes % 25.6 %; Mean Corpuscular HGB Conc 28.3 g/dL (31.6-35.5); Mean Corpuscular Hemoglobin 24.2 pg (28.0-33.3); Mean Corpuscular Volume 85.4 fL (83.0-100.0); Mean Platelet Volume 10.6 fL (9.4-12.4); Monocytes # 0.8 K/mcL (0.0-1.3); Monocytes % 10.1 %; Platelet Count 285 K/mcL (140-400); Red Blood Count 5.42 M/mcL (4.19-5.50); Segmented Neutrophils % 60.8 %; White Blood Count 8.2 K/mcL (4.3-11.1)
[2020-03-21 04:38] LABS: Calcium 9.4 mg/dL (8.6-10.3); Potassium 4.7 mEq/L (3.5-5.1)
[2020-03-21] MEDS: Levalbuterol Neb 1.25 MG/3 ML IH SCH ×4 (04:42→22:06)
[2020-03-21 05:06] LABS: Anisocytosis 1+ (Not Present); Platelet Estimate Normal (Normal)
[2020-03-21] MEDS: Spironolactone 25 MG TABLET PO SCH ×2 (08:52→19:45)
[2020-03-21] MEDS: Ascorbic Acid 500 MG TABLET PO SCH (08:52)
[2020-03-21] MEDS: Isosorbide MONOnitrate (24 HR) 30 MG TAB.ER.24H PO SCH (08:53)
[2020-03-21] MEDS: Metoprolol XL (24 HR) Succ 50 MG TAB.ER.24H PO SCH ×2 (08:53→19:45)
[2020-03-21] MEDS: Aspirin 325 MG TABLET PO SCH (08:53)
[2020-03-21] MEDS: Multivit/Ca/Min/Fe/FA 1 TAB TABLET PO SCH (08:53)
[2020-03-21] MEDS: allopurinoL 100 MG TABLET PO SCH (08:53)
[2020-03-21] MEDS: Furosemide 40 MG/4 ML VIAL IVP SCH ×2 (08:53→16:46)
[2020-03-21] MEDS: Insulin LISPRO 300 UNITS/3 ML VIAL SUBQ SCH ×3 (08:54→16:46)
[2020-03-21] MEDS: Heparin 25,000UNIT/250ML 1/2NS 25,000 UNIT/250 ML IV.SOLN IVC SCH (14:31)
[2020-03-21] MEDS: Insulin DETEMIR 100 UNIT/ML X5UNITS SUBQ SCH (19:43)
[2020-03-22] MEDS: Levalbuterol Neb 1.25 MG/3 ML IH SCH ×2 (03:38→10:39)
[2020-03-22 04:18] LABS: Basophils # 0.1 K/mcL (0.0-0.2); Basophils % 0.6 %; Eosinophils # 0.2 K/mcL (0.0-0.6); Eosinophils % 1.8 %; Hematocrit 45.4 % (37.5-50.1); Hemoglobin 13.3 g/dL (12.9-16.9); Immature Granulocytes % 1.5 % (0-4); Lymphocytes # 1.9 K/mcL (0.6-4.6); Lymphocytes % 22.4 %; Mean Corpuscular HGB Conc 29.3 g/dL (31.6-35.5); Mean Corpuscular Hemoglobin 24.9 pg (28.0-33.3); Mean Corpuscular Volume 84.9 fL (83.0-100.0); Mean Platelet Volume 10.4 fL (9.4-12.4); Monocytes # 0.8 K/mcL (0.0-1.3); Monocytes % 9.9 %; Neutrophils # 5.3 K/mcL (1.6-8.9); Platelet Count 297 K/mcL (140-400); Red Blood Count 5.35 M/mcL (4.19-5.50); Red Cell Distribution Width 16.1 % (11.5-14.5); Segmented Neutrophils % 63.8 %; White Blood Count 8.3 K/mcL (4.3-11.1)
[2020-03-22] MEDS: Heparin 25,000UNIT/250ML 1/2NS 25,000 UNIT/250 ML IV.SOLN IVC SCH (04:30)
[2020-03-22 04:40] LABS: Potassium 4.7 mEq/L (3.5-5.1)
[2020-03-22] MEDS: Furosemide 40 MG/4 ML VIAL IVP SCH (09:50)
[2020-03-22] MEDS: Aspirin 325 MG TABLET PO SCH (09:52)
[2020-03-22] MEDS: Spironolactone 25 MG TABLET PO SCH (09:52)
[2020-03-22] MEDS: Multivit/Ca/Min/Fe/FA 1 TAB TABLET PO SCH (09:53)
[2020-03-22] MEDS: Metoprolol XL (24 HR) Succ 50 MG TAB.ER.24H PO SCH (09:53)
[2020-03-22] MEDS: Ascorbic Acid 500 MG TABLET PO SCH (09:53)
[2020-03-22] MEDS: Isosorbide MONOnitrate (24 HR) 30 MG TAB.ER.24H PO SCH (09:54)
[2020-03-22] MEDS: allopurinoL 100 MG TABLET PO SCH (09:54)
[2020-03-22] MEDS: Insulin LISPRO 300 UNITS/3 ML VIAL SUBQ SCH ×2 (09:59→11:47)
[2020-03-22 11:20] VITALS: BP 104/76
== END 2020-03-22 12:27 | disposition home or self-care (01) | DRG 280 ==
LOC: 2NNU 05:48 → EMEROOARM 05:48 → SUATTDRO 08:28 → 2NNU 10:00
PROVIDERS: ADMIT Internal Medicine; ATTEND Family Medicine

== ENCOUNTER 2020-04-13 21:16 | Inpatient (IN) ==
[2020-04-13 22:02] LABS: Basophils % 0.3 %; Eosinophils # 0.1 K/mcL (0.0-0.6); Hematocrit 47.7 % (37.5-50.1); Immature Granulocytes % 0.7 % (0-4); Lymphocytes # 1.6 K/mcL (0.6-4.6); Lymphocytes % 17.5 %; Mean Corpuscular HGB Conc 29.4 g/dL (31.6-35.5); Mean Corpuscular Hemoglobin 24.5 pg (28.0-33.3); Mean Corpuscular Volume 83.5 fL (83.0-100.0); Mean Platelet Volume 11.1 fL (9.4-12.4); Monocytes % 10.7 %; Neutrophils # 6.5 K/mcL (1.6-8.9); Platelet Count 265 K/mcL (140-400); Red Blood Count 5.71 M/mcL (4.19-5.50); Red Cell Distribution Width 17.5 % (11.5-14.5); Segmented Neutrophils % 69.8 %; White Blood Count 9.4 K/mcL (4.3-11.1)
[2020-04-13 22:11] LABS: INR 1.1; Prothrombin Time 12.5 Seconds (9.4-12.1)
[2020-04-13 22:33] LABS: Albumin 3.9 g/dL (3.5-5.7); Albumin/Globulin Ratio 1.2 (1.1-2.2); Bilirubin,Direct 0.2 mg/dL (0.0-0.2); Bilirubin,Indirect 0.6 mg/dL (0.0-1.0); Bilirubin,Total 0.8 mg/dL (0.3-1.0); Calcium 9.5 mg/dL (8.6-10.3); Globulin 3.2 g/dL (2.4-3.5); Potassium 4.8 mEq/L (3.5-5.1); Total Protein 7.1 g/dL (6.4-8.9); Troponin I 0.04 ng/mL (< 0.04)
[2020-04-13] MEDS ORDERED: Furosemide 40 MG/4 ML VIAL IVP ONE (22:42)
[2020-04-14] MEDS ORDERED: Ondansetron ODT 4 MG TAB.RAPDIS SL PRN (01:01)
[2020-04-14] MEDS ORDERED: Naloxone 0.4 MG/ML INJ IVP PRN (01:01)
[2020-04-14 02:36] LABS: ABG Base Excess 5 mEq/L (-2 to 3); ABG HCO3 33 mEq/L (21-27); ABG Oxygen Saturation 89 % (95-98); ABG PCO2 61 mmHg (35-45); ABG PH 7.35 pH Units (7.32-7.45); ABG PO2 61 mmHg (85-104); ABG TCO2 35 mEq/L (20-26)
[2020-04-14 02:41] LABS: Hematocrit 45.1 % (37.5-50.1); Hemoglobin 13.3 g/dL (12.9-16.9); Mean Corpuscular HGB Conc 29.5 g/dL (31.6-35.5); Mean Corpuscular Hemoglobin 24.9 pg (28.0-33.3); Mean Corpuscular Volume 84.5 fL (83.0-100.0); Mean Platelet Volume 10.5 fL (9.4-12.4); Platelet Count 239 K/mcL (140-400); Red Blood Count 5.34 M/mcL (4.19-5.50); Red Cell Distribution Width 17.5 % (11.5-14.5); White Blood Count 8.8 K/mcL (4.3-11.1)
[2020-04-14 02:58] LABS: Calcium 9.3 mg/dL (8.6-10.3); Potassium 4.8 mEq/L (3.5-5.1)
[2020-04-14] MEDS ORDERED: D5% in Water 1,000 ML IVC PRN (03:09)
[2020-04-14] MEDS ORDERED: *HR* Dextrose 50 % in Water (Vial) 50 ML VIAL IVP PRN (03:09)
[2020-04-14] MEDS ORDERED: Dextrose Gel 15 GM/37.5 ML TUBE PO PRN ×2 (03:09)
[2020-04-14 03:55] LABS: Troponin I 0.05 ng/mL (< 0.04)
[2020-04-14] MEDS: Ipratropium/Albuterol Neb 3 ML IH PRN (05:15)
[2020-04-14] MEDS: Insulin LISPRO 300 UNITS/3 ML VIAL SUBQ SCH ×3 (07:53→17:41)
[2020-04-14] MEDS: Isosorbide MONOnitrate (24 HR) 30 MG TAB.ER.24H PO SCH (07:54)
[2020-04-14] MEDS: Multivit/Ca/Min/Fe/FA 1 TAB TABLET PO SCH (07:54)
[2020-04-14] MEDS: Furosemide 40 MG/4 ML VIAL IVP SCH ×2 (07:54→20:34)
[2020-04-14] MEDS: Aspirin 325 MG TABLET PO SCH (07:54)
[2020-04-14] MEDS: allopurinoL 100 MG TABLET PO SCH (07:54)
[2020-04-14] MEDS: Spironolactone 25 MG TABLET PO SCH ×2 (07:55→20:35)
[2020-04-14] MEDS ORDERED: (Fish Oil 1,000 Mg Softgel) PO SCH (09:00)
[2020-04-14] MEDS ORDERED: Metoprolol XL (24 HR) Succ 50 MG TAB.ER.24H PO SCH (09:00)
[2020-04-14] MEDS: Budesonide/Formoterol 160/4.5 1 PUFF INH IH SCH ×2 (16:37→22:16)
[2020-04-14] MEDS: Insulin DETEMIR 100 UNIT/ML X5UNITS SUBQ SCH (20:40)
[2020-04-15] MEDS: *HR* Enoxaparin 40 MG/0.4 ML SYRINGE SQ SCH (05:48)
[2020-04-15 06:28] LABS: Hematocrit 47.1 % (37.5-50.1); Hemoglobin 13.3 g/dL (12.9-16.9); Mean Corpuscular HGB Conc 28.2 g/dL (31.6-35.5); Mean Corpuscular Hemoglobin 24.1 pg (28.0-33.3); Mean Corpuscular Volume 85.2 fL (83.0-100.0); Mean Platelet Volume 11.1 fL (9.4-12.4); Platelet Count 245 K/mcL (140-400); Red Blood Count 5.53 M/mcL (4.19-5.50); Red Cell Distribution Width 17.3 % (11.5-14.5); White Blood Count 9.6 K/mcL (4.3-11.1)
[2020-04-15 06:56] LABS: Calcium 9.3 mg/dL (8.6-10.3); Potassium 5.1 mEq/L (3.5-5.1)
[2020-04-15] MEDS: Furosemide 40 MG/4 ML VIAL IVP SCH (07:18)
[2020-04-15] MEDS: Metoprolol XL (24 HR) Succ 50 MG TAB.ER.24H PO SCH (07:18)
[2020-04-15] MEDS: Insulin LISPRO 300 UNITS/3 ML VIAL SUBQ SCH ×3 (07:18→17:54)
[2020-04-15] MEDS: Isosorbide MONOnitrate (24 HR) 30 MG TAB.ER.24H PO SCH (07:18)
[2020-04-15] MEDS: Spironolactone 25 MG TABLET PO SCH ×2 (07:18→20:08)
[2020-04-15] MEDS: Aspirin 325 MG TABLET PO SCH (07:18)
[2020-04-15] MEDS: allopurinoL 100 MG TABLET PO SCH (07:19)
[2020-04-15] MEDS: Multivit/Ca/Min/Fe/FA 1 TAB TABLET PO SCH (07:19)
[2020-04-15] MEDS: Budesonide/Formoterol 160/4.5 1 PUFF INH IH SCH ×2 (08:46→20:11)
[2020-04-15] MEDS: Insulin DETEMIR 100 UNIT/ML X5UNITS SUBQ SCH (20:27)
[2020-04-16 02:55] LABS: Hematocrit 47.4 % (37.5-50.1); Hemoglobin 13.5 g/dL (12.9-16.9); Mean Corpuscular HGB Conc 28.5 g/dL (31.6-35.5); Mean Corpuscular Hemoglobin 24.5 pg (28.0-33.3); Mean Corpuscular Volume 85.9 fL (83.0-100.0); Mean Platelet Volume 11.3 fL (9.4-12.4); Platelet Count 260 K/mcL (140-400); Red Blood Count 5.52 M/mcL (4.19-5.50); Red Cell Distribution Width 16.7 % (11.5-14.5); White Blood Count 9.7 K/mcL (4.3-11.1)
[2020-04-16 03:14] LABS: Calcium 9.5 mg/dL (8.6-10.3); Potassium 5.2 mEq/L (3.5-5.1)
[2020-04-16] MEDS: Ipratropium/Albuterol Neb 3 ML IH PRN (04:07)
[2020-04-16] MEDS ORDERED: ALPRAZolam 0.5 MG TABLET PO ONE (04:09)
[2020-04-16] MEDS: *HR* Enoxaparin 40 MG/0.4 ML SYRINGE SQ SCH (06:10)
[2020-04-16] MEDS: Budesonide/Formoterol 160/4.5 1 PUFF INH IH SCH ×2 (07:13→20:09)
[2020-04-16] MEDS: Metoprolol XL (24 HR) Succ 50 MG TAB.ER.24H PO SCH (08:30)
[2020-04-16] MEDS: Insulin LISPRO 300 UNITS/3 ML VIAL SUBQ SCH ×3 (08:30→16:33)
[2020-04-16] MEDS: Multivit/Ca/Min/Fe/FA 1 TAB TABLET PO SCH (08:30)
[2020-04-16] MEDS: Aspirin 325 MG TABLET PO SCH (08:30)
[2020-04-16] MEDS: Isosorbide MONOnitrate (24 HR) 30 MG TAB.ER.24H PO SCH (08:31)
[2020-04-16] MEDS: allopurinoL 100 MG TABLET PO SCH (08:31)
[2020-04-16] MEDS ORDERED: Furosemide 40 MG/4 ML VIAL IVP SCH (09:00)
[2020-04-16 20:13] LABS: ABG Base Excess 3 mEq/L (-2 to 3); ABG HCO3 32 mEq/L (21-27); ABG Oxygen Saturation 92 % (95-98); ABG PCO2 69 mmHg (35-45); ABG PH 7.28 pH Units (7.32-7.45); ABG PO2 75 mmHg (85-104); ABG TCO2 35 mEq/L (20-26)
[2020-04-16] MEDS: Insulin DETEMIR 100 UNIT/ML X5UNITS SUBQ SCH (21:35)
[2020-04-17] MEDS ORDERED: ALPRAZolam 0.5 MG TABLET PO ONE (00:08)
[2020-04-17] MEDS: *HR* Enoxaparin 40 MG/0.4 ML SYRINGE SQ SCH (05:24)
[2020-04-17 05:43] LABS: Hematocrit 45.3 % (37.5-50.1); Mean Corpuscular HGB Conc 28.7 g/dL (31.6-35.5); Mean Corpuscular Hemoglobin 24.9 pg (28.0-33.3); Mean Corpuscular Volume 86.6 fL (83.0-100.0); Mean Platelet Volume 11.4 fL (9.4-12.4); Platelet Count 248 K/mcL (140-400); Red Blood Count 5.23 M/mcL (4.19-5.50); Red Cell Distribution Width 16.6 % (11.5-14.5); White Blood Count 9.5 K/mcL (4.3-11.1)
[2020-04-17 06:05] LABS: Calcium 9.3 mg/dL (8.6-10.3); Potassium 5.3 mEq/L (3.5-5.1)
[2020-04-17] MEDS: Budesonide/Formoterol 160/4.5 1 PUFF INH IH SCH ×2 (07:30→19:56)
[2020-04-17] MEDS: Ipratropium/Albuterol Neb 3 ML IH PRN (07:30)
[2020-04-17] MEDS: Metoprolol XL (24 HR) Succ 50 MG TAB.ER.24H PO SCH (08:01)
[2020-04-17] MEDS: Isosorbide MONOnitrate (24 HR) 30 MG TAB.ER.24H PO SCH (08:01)
[2020-04-17] MEDS: Insulin LISPRO 300 UNITS/3 ML VIAL SUBQ SCH ×3 (08:01→16:38)
[2020-04-17] MEDS: Multivit/Ca/Min/Fe/FA 1 TAB TABLET PO SCH (08:01)
[2020-04-17] MEDS: allopurinoL 100 MG TABLET PO SCH (08:02)
[2020-04-17] MEDS: Aspirin 325 MG TABLET PO SCH (08:02)
[2020-04-17] MEDS: Furosemide 40 MG TABLET PO SCH (16:38)
[2020-04-17] MEDS: Insulin DETEMIR 100 UNIT/ML X5UNITS SUBQ SCH (20:01)
[2020-04-18] MEDS: *HR* Enoxaparin 40 MG/0.4 ML SYRINGE SQ SCH (04:48)
[2020-04-18 06:23] LABS: Hematocrit 45.9 % (37.5-50.1); Hemoglobin 12.7 g/dL (12.9-16.9); Mean Corpuscular HGB Conc 27.7 g/dL (31.6-35.5); Mean Corpuscular Volume 86.6 fL (83.0-100.0); Mean Platelet Volume 11.4 fL (9.4-12.4); Platelet Count 265 K/mcL (140-400); Red Cell Distribution Width 16.9 % (11.5-14.5); White Blood Count 8.7 K/mcL (4.3-11.1)
[2020-04-18 06:33] LABS: VBG HCO3 33 mEq/L (21-27); VBG PCO2 71 mmHg (41-51); VBG PH 7.28 pH Units (7.32-7.42); VBG PO2 62 mmHg (25-50)
[2020-04-18 07:00] LABS: Calcium 9.3 mg/dL (8.6-10.3)
[2020-04-18] MEDS: Budesonide/Formoterol 160/4.5 1 PUFF INH IH SCH ×2 (07:33→21:34)
[2020-04-18] MEDS: Isosorbide MONOnitrate (24 HR) 30 MG TAB.ER.24H PO SCH (07:37)
[2020-04-18] MEDS: Aspirin 325 MG TABLET PO SCH (07:37)
[2020-04-18] MEDS: Insulin LISPRO 300 UNITS/3 ML VIAL SUBQ SCH ×3 (07:37→16:07)
[2020-04-18] MEDS: Multivit/Ca/Min/Fe/FA 1 TAB TABLET PO SCH (07:38)
[2020-04-18] MEDS: allopurinoL 100 MG TABLET PO SCH (07:38)
[2020-04-18] MEDS: Furosemide 40 MG TABLET PO SCH (07:38)
[2020-04-18] MEDS: Metoprolol XL (24 HR) Succ 50 MG TAB.ER.24H PO SCH (07:38)
[2020-04-18] MEDS: lisinopriL 5 MG TABLET PO SCH (11:59)
[2020-04-18] MEDS: Furosemide 40 MG/4 ML VIAL IVP SCH (16:07)
[2020-04-18 21:47] LABS: ABG Base Excess 6 mEq/L (-2 to 3); ABG HCO3 35 mEq/L (21-27); ABG Oxygen Saturation 93 % (95-98); ABG PCO2 64 mmHg (35-45); ABG PH 7.34 pH Units (7.32-7.45); ABG PO2 73 mmHg (85-104); ABG TCO2 37 mEq/L (20-26)
[2020-04-18] MEDS: Insulin DETEMIR 100 UNIT/ML X5UNITS SUBQ SCH (21:55)
[2020-04-18] MEDS: Melatonin 3 MG TABLET PO PRN (23:18)
[2020-04-19 03:33] LABS: VBG HCO3 35 mEq/L (21-27); VBG PCO2 67 mmHg (41-51); VBG PH 7.32 pH Units (7.32-7.42); VBG PO2 46 mmHg (25-50)
[2020-04-19 03:58] LABS: Calcium 9.4 mg/dL (8.6-10.3); Potassium 4.6 mEq/L (3.5-5.1)
[2020-04-19] MEDS: *HR* Enoxaparin 40 MG/0.4 ML SYRINGE SQ SCH (05:24)
[2020-04-19] MEDS: allopurinoL 100 MG TABLET PO SCH (07:35)
[2020-04-19] MEDS: Metoprolol XL (24 HR) Succ 50 MG TAB.ER.24H PO SCH (07:35)
[2020-04-19] MEDS: lisinopriL 5 MG TABLET PO SCH (07:35)
[2020-04-19] MEDS: Multivit/Ca/Min/Fe/FA 1 TAB TABLET PO SCH (07:35)
[2020-04-19] MEDS: Isosorbide MONOnitrate (24 HR) 30 MG TAB.ER.24H PO SCH (07:35)
[2020-04-19] MEDS: Furosemide 40 MG/4 ML VIAL IVP SCH ×2 (07:36→15:55)
[2020-04-19] MEDS: Aspirin 325 MG TABLET PO SCH (07:36)
[2020-04-19] MEDS: Insulin LISPRO 300 UNITS/3 ML VIAL SUBQ SCH ×3 (07:36→15:54)
[2020-04-19] MEDS: Budesonide/Formoterol 160/4.5 1 PUFF INH IH SCH ×2 (08:09→19:30)
[2020-04-19] MEDS: Insulin DETEMIR 100 UNIT/ML X5UNITS SUBQ SCH (19:57)
[2020-04-19] MEDS: Melatonin 3 MG TABLET PO PRN (19:57)
[2020-04-20] MEDS: *HR* Enoxaparin 40 MG/0.4 ML SYRINGE SQ SCH (06:35)
[2020-04-20 06:47] VITALS: BP 105/66
[2020-04-20] MEDS: Insulin LISPRO 300 UNITS/3 ML VIAL SUBQ SCH (07:44)
[2020-04-20] MEDS: Furosemide 40 MG/4 ML VIAL IVP SCH (07:45)
[2020-04-20] MEDS: Multivit/Ca/Min/Fe/FA 1 TAB TABLET PO SCH (07:45)
[2020-04-20] MEDS: allopurinoL 100 MG TABLET PO SCH (07:45)
[2020-04-20] MEDS: lisinopriL 5 MG TABLET PO SCH (07:45)
[2020-04-20] MEDS: Metoprolol XL (24 HR) Succ 50 MG TAB.ER.24H PO SCH (07:46)
[2020-04-20] MEDS: Isosorbide MONOnitrate (24 HR) 30 MG TAB.ER.24H PO SCH (07:46)
[2020-04-20] MEDS ORDERED: Aspirin Enteric Coated 81 MG Tablet PO SCH (09:00)
[2020-04-20] MEDS: Budesonide/Formoterol 160/4.5 1 PUFF INH IH SCH (10:08)
== END 2020-04-20 11:57 | disposition home or self-care (01) | DRG 280 ==
LOC: EMEROOARM 21:16 → 2ANU 21:16 → SUATTDRO 23:26 → 2ANU 04-14 00:09
PROVIDERS: ADMIT Internal Medicine; ATTEND Internal Medicine

== ENCOUNTER 2020-07-03 05:17 | Inpatient (IN) ==
[2020-07-03 05:39] LABS: Basophils % 0.3 %
[2020-07-03 05:41] LABS: Eosinophils # 0.1 K/mcL (0.0-0.6); Eosinophils % 0.6 %; Hematocrit 45.9 % (37.5-50.1); Hemoglobin 13.3 g/dL (12.9-16.9); Immature Granulocytes % 0.4 % (0-4); Lymphocytes # 1.5 K/mcL (0.6-4.6); Lymphocytes % 15.2 %; Mean Corpuscular Hemoglobin 24.2 pg (28.0-33.3); Mean Corpuscular Volume 83.5 fL (83.0-100.0); Mean Platelet Volume 10.1 fL (9.4-12.4); Monocytes # 0.9 K/mcL (0.0-1.3); Monocytes % 9.1 %; Neutrophils # 7.5 K/mcL (1.6-8.9); Platelet Count 286 K/mcL (140-400); Red Cell Distribution Width 18.4 % (11.5-14.5); Segmented Neutrophils % 74.4 %; White Blood Count 10.1 K/mcL (4.3-11.1)
[2020-07-03 06:01] LABS: Calcium 9.4 mg/dL (8.6-10.3); Potassium 4.4 mEq/L (3.5-5.1)
[2020-07-03 06:02] LABS: Troponin I 0.03 ng/mL (< 0.04)
[2020-07-03 06:05] LABS: Anisocytosis 1+ (Not Present); Hypochromasia Present (Not Present); Platelet Estimate Normal (Normal); Polychromasia 1+ (Not Present)
[2020-07-03] MEDS ORDERED: Furosemide 40 MG in 0.9 % Sodium Chloride 50 ML IVPB ONE (06:57)
[2020-07-03] MEDS ORDERED: *HR* Dextrose 50 % in Water (Vial) 50 ML VIAL IVP PRN (07:24)
[2020-07-03] MEDS ORDERED: Dextrose Gel 15 GM/37.5 ML TUBE PO PRN ×2 (07:24)
[2020-07-03] MEDS ORDERED: Naloxone 0.4 MG/ML INJ IVP PRN (07:24)
[2020-07-03] MEDS ORDERED: D5% in Water 1,000 ML IVC PRN (07:24)
[2020-07-03] MEDS: Insulin LISPRO 300 UNITS/3 ML VIAL SUBQ SCH ×4 (10:12→20:34)
[2020-07-03] MEDS: Isosorbide MONOnitrate (24 HR) 30 MG TAB.ER.24H PO SCH (10:19)
[2020-07-03] MEDS: Metoprolol XL (24 HR) Succ 50 MG TAB.ER.24H PO SCH (10:19)
[2020-07-03 11:58] LABS: Estimated Average Glucose 200 mg/dl; Hemoglobin A1C 8.6 %
[2020-07-03] MEDS ORDERED: metOLazone 5 MG TABLET PO ONE (13:00)
[2020-07-03] MEDS ORDERED: *HR* Heparin 5,000 UNIT/ML VIAL IVP PRN ×2 (13:04)
[2020-07-03] MEDS ORDERED: *HR* Heparin 5,000 UNIT/ML VIAL IVP ONE (13:04)
[2020-07-03 13:49] LABS: Hematocrit 45.1 % (37.5-50.1); Hemoglobin 12.8 g/dL (12.9-16.9); Mean Corpuscular HGB Conc 28.4 g/dL (31.6-35.5); Mean Corpuscular Hemoglobin 23.6 pg (28.0-33.3); Mean Corpuscular Volume 83.2 fL (83.0-100.0); Mean Platelet Volume 10.4 fL (9.4-12.4); Platelet Count 281 K/mcL (140-400); Red Blood Count 5.42 M/mcL (4.19-5.50); Red Cell Distribution Width 18.4 % (11.5-14.5); White Blood Count 8.7 K/mcL (4.3-11.1)
[2020-07-03 13:57] LABS: INR 1.1; Prothrombin Time 12.2 Seconds (9.4-12.1)
[2020-07-03 13:58] LABS: Heparin anti-factor XA UFH < 0.04 IU/mL (0.30-0.70)
[2020-07-03] MEDS: Furosemide 40 MG/4 ML VIAL IVP SCH ×2 (14:37→20:33)
[2020-07-03] MEDS: Heparin 25,000UNIT/250ML 1/2NS 25,000 UNIT/250 ML IV.SOLN IVC SCH (14:39)
[2020-07-03] MEDS ORDERED: Furosemide 40 MG/4 ML VIAL IVP SCH (16:00)
[2020-07-03] MEDS ORDERED: Melatonin 3 MG TABLET PO ONE (22:07)
[2020-07-04] MEDS ORDERED: Insulin LISPRO 300 UNITS/3 ML VIAL SUBQ ONE (03:00)
[2020-07-04 04:05] LABS: Eosinophils % 1.5 %
[2020-07-04 04:07] LABS: Basophils % 0.4 %; Eosinophils # 0.2 K/mcL (0.0-0.6); Hematocrit 46.2 % (37.5-50.1); Immature Granulocytes % 0.5 % (0-4); Lymphocytes # 2.1 K/mcL (0.6-4.6); Lymphocytes % 21.2 %; Mean Corpuscular HGB Conc 28.1 g/dL (31.6-35.5); Mean Corpuscular Hemoglobin 23.8 pg (28.0-33.3); Mean Corpuscular Volume 84.6 fL (83.0-100.0); Mean Platelet Volume 10.8 fL (9.4-12.4); Monocytes # 1.1 K/mcL (0.0-1.3); Monocytes % 11.4 %; Neutrophils # 6.5 K/mcL (1.6-8.9); Platelet Count 269 K/mcL (140-400); Red Blood Count 5.46 M/mcL (4.19-5.50); Red Cell Distribution Width 18.8 % (11.5-14.5)
[2020-07-04 04:12] LABS: Calcium 9.6 mg/dL (8.6-10.3); Potassium 4.4 mEq/L (3.5-5.1); Troponin I 0.04 ng/mL (< 0.04)
[2020-07-04 04:42] LABS: Hypochromasia Present (Not Present); Target Cells 1+ (Not Present)
[2020-07-04 04:43] LABS: Anisocytosis 1+ (Not Present); Platelet Estimate Normal (Normal); Polychromasia 1+ (Not Present)
[2020-07-04] MEDS: Multivit/Ca/Min/Fe/FA 1 TAB TABLET PO SCH (08:13)
[2020-07-04] MEDS: allopurinoL 100 MG TABLET PO SCH (08:13)
[2020-07-04] MEDS: Ascorbic Acid 500 MG TABLET PO SCH (08:13)
[2020-07-04] MEDS: Isosorbide MONOnitrate (24 HR) 30 MG TAB.ER.24H PO SCH (08:13)
[2020-07-04] MEDS: Metoprolol XL (24 HR) Succ 50 MG TAB.ER.24H PO SCH (08:13)
[2020-07-04] MEDS: Furosemide 40 MG/4 ML VIAL IVP SCH ×3 (08:14→20:32)
[2020-07-04] MEDS: Insulin LISPRO 300 UNITS/3 ML VIAL SUBQ SCH ×4 (08:19→20:33)
[2020-07-04] MEDS ORDERED: lisinopriL 5 MG TABLET PO SCH (09:00)
[2020-07-04] MEDS ORDERED: (Omega-3/Dha/Epa/Fish Oil [Fish Oil 1,000 Mg Softgel] PO SCH (09:00)
[2020-07-04] MEDS: Heparin 25,000UNIT/250ML 1/2NS 25,000 UNIT/250 ML IV.SOLN IVC SCH (10:47)
[2020-07-04] MEDS: Aspirin 325 MG TABLET PO SCH (10:48)
[2020-07-05 04:30] LABS: Calcium 9.4 mg/dL (8.6-10.3); Magnesium 1.9 mg/dL (1.6-2.6); Potassium 4.9 mEq/L (3.5-5.1); Troponin I 0.03 ng/mL (< 0.04)
[2020-07-05] MEDS: Heparin 25,000UNIT/250ML 1/2NS 25,000 UNIT/250 ML IV.SOLN IVC SCH ×2 (05:33→16:55)
[2020-07-05] MEDS: Multivit/Ca/Min/Fe/FA 1 TAB TABLET PO SCH (07:57)
[2020-07-05] MEDS: Insulin LISPRO 300 UNITS/3 ML VIAL SUBQ SCH ×4 (07:57→20:28)
[2020-07-05] MEDS: allopurinoL 100 MG TABLET PO SCH (07:57)
[2020-07-05] MEDS: Metoprolol XL (24 HR) Succ 50 MG TAB.ER.24H PO SCH (07:57)
[2020-07-05] MEDS: Ascorbic Acid 500 MG TABLET PO SCH (07:57)
[2020-07-05] MEDS: Isosorbide MONOnitrate (24 HR) 30 MG TAB.ER.24H PO SCH (07:58)
[2020-07-05] MEDS: Furosemide 40 MG/4 ML VIAL IVP SCH (07:58)
[2020-07-05] MEDS: Aspirin 325 MG TABLET PO SCH (08:01)
[2020-07-05 08:29] LABS: Basophils % 0.4 %; Eosinophils # 0.1 K/mcL (0.0-0.6); Eosinophils % 0.9 %; Hematocrit 46.6 % (37.5-50.1); Hemoglobin 12.9 g/dL (12.9-16.9); Immature Granulocytes % 0.6 % (0-4); Lymphocytes # 2.5 K/mcL (0.6-4.6); Lymphocytes % 24.7 %; Mean Corpuscular HGB Conc 27.7 g/dL (31.6-35.5); Mean Corpuscular Hemoglobin 23.1 pg (28.0-33.3); Mean Corpuscular Volume 83.4 fL (83.0-100.0); Mean Platelet Volume 10.3 fL (9.4-12.4); Monocytes % 10.2 %; Neutrophils # 6.4 K/mcL (1.6-8.9); Platelet Count 272 K/mcL (140-400); Red Blood Count 5.59 M/mcL (4.19-5.50); Segmented Neutrophils % 63.2 %; White Blood Count 10.1 K/mcL (4.3-11.1)
[2020-07-05 08:49] LABS: Platelet Estimate Normal (Normal)
[2020-07-05] MEDS ORDERED: Furosemide 40 MG/4 ML VIAL IVP SCH (17:00)
[2020-07-05] MEDS ORDERED: Melatonin 3 MG TABLET PO ONE (23:09)
[2020-07-06] MEDS: Heparin 25,000UNIT/250ML 1/2NS 25,000 UNIT/250 ML IV.SOLN IVC SCH (00:56)
[2020-07-06 02:43] LABS: Mean Corpuscular Volume 82.6 fL (83.0-100.0); Red Cell Distribution Width 18.6 % (11.5-14.5)
[2020-07-06 02:44] LABS: Hematocrit 46.4 % (37.5-50.1); Hemoglobin 13.5 g/dL (12.9-16.9); Mean Corpuscular HGB Conc 29.1 g/dL (31.6-35.5); Mean Platelet Volume 10.8 fL (9.4-12.4); Platelet Count 289 K/mcL (140-400); Red Blood Count 5.62 M/mcL (4.19-5.50)
[2020-07-06 03:04] LABS: Calcium 9.2 mg/dL (8.6-10.3); Potassium 4.6 mEq/L (3.5-5.1)
[2020-07-06] MEDS: Insulin LISPRO 300 UNITS/3 ML VIAL SUBQ SCH ×2 (08:21→12:26)
[2020-07-06] MEDS: Ascorbic Acid 500 MG TABLET PO SCH (08:22)
[2020-07-06] MEDS: Metoprolol XL (24 HR) Succ 50 MG TAB.ER.24H PO SCH (08:22)
[2020-07-06] MEDS: Isosorbide MONOnitrate (24 HR) 30 MG TAB.ER.24H PO SCH (08:22)
[2020-07-06] MEDS: Multivit/Ca/Min/Fe/FA 1 TAB TABLET PO SCH (08:22)
[2020-07-06] MEDS: allopurinoL 100 MG TABLET PO SCH (08:22)
[2020-07-06] MEDS: Aspirin 325 MG TABLET PO SCH (08:25)
[2020-07-06 11:39] VITALS: BP 103/75
== END 2020-07-06 16:19 | disposition home or self-care (01) | DRG 291 ==
LOC: EMEROOARM 05:17 → 3BNU 05:17 → SUATTDRO 07:58 → 3BNU 09:00 → SUATTDRO 07-04 14:56
PROVIDERS: ADMIT Student in an Organized Health Care Education/Training Program; ATTEND Nurse Practitioner

== ENCOUNTER 2021-02-23 05:10 | Observation (INO) ==
[2021-02-23] MEDS ORDERED: Ipratropium/Albuterol Neb 3 ML IH ONE (05:23)
[2021-02-23 06:02] LABS: Basophils % 0.3 %; Eosinophils # 0.1 K/mcL (0.0-0.6); Eosinophils % 0.7 %; Hematocrit 48.7 % (37.5-50.1); Hemoglobin 14.1 g/dL (12.9-16.9); Immature Granulocytes % 0.6 % (0-4); Lymphocytes # 1.3 K/mcL (0.6-4.6); Lymphocytes % 13.5 %; Mean Corpuscular Volume 82.8 fL (83.0-100.0); Mean Platelet Volume 11.2 fL (9.4-12.4); Monocytes # 0.8 K/mcL (0.0-1.3); Monocytes % 8.6 %; Neutrophils # 7.3 K/mcL (1.6-8.9); Platelet Count 280 K/mcL (140-400); Red Blood Count 5.88 M/mcL (4.19-5.50); Red Cell Distribution Width 18.4 % (11.5-14.5); Segmented Neutrophils % 76.3 %; White Blood Count 9.6 K/mcL (4.3-11.1)
[2021-02-23 06:11] LABS: INR 1.1; Prothrombin Time 11.7 Seconds (9.4-12.1)
[2021-02-23 06:14] LABS: Activated Partial Thrombo Time 35.9 Seconds (26.0-36.0)
[2021-02-23 06:37] LABS: Albumin 3.9 g/dL (3.5-5.7); Albumin/Globulin Ratio 1.1 (1.1-2.2); Bilirubin,Total 0.7 mg/dL (0.3-1.0); Calcium 9.6 mg/dL (8.6-10.3); Globulin 3.5 g/dL (2.4-3.5); Magnesium 1.9 mg/dL (1.6-2.6); Potassium 4.5 mEq/L (3.5-5.1); Thyroid Stimulating Hormone 2.474 mcIU/mL (0.340-5.600); Total Protein 7.4 g/dL (6.4-8.9); Troponin I 0.17 ng/mL (< 0.04)
[2021-02-23] MEDS ORDERED: Isovue-370 500 ML BOTTLE IVP ONE (06:45)
[2021-02-23] MEDS ORDERED: Perflutren Lipid Microsphere 1.3 ML in 0.9 % Sodium Chloride 8.7 ML IVP PRN (07:44)
[2021-02-23] MEDS ORDERED: Melatonin 3 MG TABLET PO PRN (07:50)
[2021-02-23] MEDS ORDERED: Ondansetron 4 MG/2 ML VIAL IVP PRN (07:50)
[2021-02-23] MEDS ORDERED: Acetaminophen 325 MG TABLET PO PRN (07:50)
[2021-02-23 08:18] LABS: Influenza A PCR Negative (Negative); Influenza B PCR Negative (Negative); Resp. Syncytial Virus PCR Negative (Negative)
[2021-02-23 08:19] LABS: SARS-CoV-2 by PCR (In House) Negative (Negative)
[2021-02-23] MEDS ORDERED: D5% in Water 1,000 ML IVC PRN (08:24)
[2021-02-23] MEDS ORDERED: *HR* Dextrose 50 % in Water (Syg) 50 ML SYRINGE IVP PRN (08:24)
[2021-02-23] MEDS ORDERED: Dextrose Gel 15 GM/37.5 ML TUBE PO PRN ×2 (08:24)
[2021-02-23] MEDS: Insulin DETEMIR 100 UNIT/ML X5UNITS SUBQ SCH ×2 (10:17→20:50)
[2021-02-23] MEDS: Isosorbide MONOnitrate (24 HR) 30 MG TAB.ER.24H PO SCH (10:18)
[2021-02-23] MEDS: Aspirin 325 MG TABLET PO SCH (10:18)
[2021-02-23] MEDS: Metoprolol XL (24 HR) Succ 50 MG TAB.ER.24H PO SCH (10:18)
[2021-02-23] MEDS: Insulin LISPRO 300 UNITS/3 ML VIAL SUBQ SCH ×2 (11:43→16:27)
[2021-02-23 16:41] LABS: Hematocrit 46.6 % (37.5-50.1); Hemoglobin 13.4 g/dL (12.9-16.9)
[2021-02-23] MEDS: Ipratropium/Albuterol Neb 3 ML IH SCH (23:12)
[2021-02-24] MEDS ORDERED: traZODone 50 MG TABLET PO PRN (00:12)
[2021-02-24] MEDS: Ipratropium/Albuterol Neb 3 ML IH SCH ×4 (04:14→16:13)
[2021-02-24 08:04] LABS: Hematocrit 46.2 % (37.5-50.1); Hemoglobin 13.1 g/dL (12.9-16.9); Mean Corpuscular HGB Conc 28.4 g/dL (31.6-35.5); Mean Corpuscular Hemoglobin 23.7 pg (28.0-33.3); Mean Corpuscular Volume 83.5 fL (83.0-100.0); Platelet Count 261 K/mcL (140-400); Red Blood Count 5.53 M/mcL (4.19-5.50); Red Cell Distribution Width 17.9 % (11.5-14.5); White Blood Count 8.9 K/mcL (4.3-11.1)
[2021-02-24] MEDS: Metoprolol XL (24 HR) Succ 50 MG TAB.ER.24H PO SCH (08:12)
[2021-02-24] MEDS: Insulin LISPRO 300 UNITS/3 ML VIAL SUBQ SCH ×2 (08:12→11:06)
[2021-02-24] MEDS: Isosorbide MONOnitrate (24 HR) 30 MG TAB.ER.24H PO SCH (08:12)
[2021-02-24] MEDS: Aspirin 325 MG TABLET PO SCH (08:12)
[2021-02-24] MEDS: Insulin DETEMIR 100 UNIT/ML X5UNITS SUBQ SCH (08:12)
[2021-02-24] MEDS ORDERED: Furosemide 40 MG TABLET PO SCH (09:00)
[2021-02-24] MEDS ORDERED: lisinopriL 5 MG TABLET PO SCH (09:00)
[2021-02-24 10:57] VITALS: BP 108/62; PULSE 95; TEMP 98.4
[2021-02-24 12:27] VITALS: O2SAT 95
[2021-02-24 12:38] LABS: Calcium 8.8 mg/dL (8.6-10.3); Magnesium 1.9 mg/dL (1.6-2.6); Phosphorous 3.3 mg/dL (2.7-4.5); Potassium 4.7 mEq/L (3.5-5.1); Troponin I 0.11 ng/mL (< 0.04)
== END 2021-02-24 16:19 | disposition home or self-care (01) ==
LOC: 2ANU 05:10 → EMEROOARM 05:10 → 2ANU 09:20
PROVIDERS: ADMIT Internal Medicine; ATTEND Internal Medicine

== ENCOUNTER 2021-02-24 16:31 | Inpatient (IN) ==
[2021-02-24] MEDS ORDERED: Isovue-370 500 ML BOTTLE IVP ONE (16:44)
[2021-02-24 17:22] LABS: Basophils % 0.3 %; Immature Granulocytes % 0.4 % (0-4)
[2021-02-24 17:24] LABS: Eosinophils # 0.1 K/mcL (0.0-0.6); Eosinophils % 0.6 %; Hematocrit 47.5 % (37.5-50.1); Hemoglobin 13.3 g/dL (12.9-16.9); Lymphocytes # 1.6 K/mcL (0.6-4.6); Lymphocytes % 15.4 %; Mean Corpuscular Hemoglobin 23.5 pg (28.0-33.3); Mean Corpuscular Volume 83.8 fL (83.0-100.0); Mean Platelet Volume 10.9 fL (9.4-12.4); Monocytes # 1.1 K/mcL (0.0-1.3); Monocytes % 11.3 %; Platelet Count 280 K/mcL (140-400); Red Blood Count 5.67 M/mcL (4.19-5.50); Red Cell Distribution Width 18.1 % (11.5-14.5); White Blood Count 10.1 K/mcL (4.3-11.1)
[2021-02-24 17:29] LABS: INR 1.1; Prothrombin Time 12.8 Seconds (9.4-12.1)
[2021-02-24 17:31] LABS: Activated Partial Thrombo Time 37.5 Seconds (26.0-36.0); Neutrophils # 7.3 K/mcL (1.6-8.9)
[2021-02-24 17:45] LABS: Alanine Aminotransferase 17 Units/L (7-52); Albumin 3.6 g/dL (3.5-5.7); Albumin/Globulin Ratio 1.2 (1.1-2.2); Alkaline Phosphatase 87 Units/L (34-104); Aspartate Amino Transferase 14 Units/L (13-39); BUN/Creatinine Ratio 21 (6-26); Bilirubin,Direct 0.2 mg/dL (0.0-0.2); Bilirubin,Indirect 0.9 mg/dL (0.0-1.0); Bilirubin,Total 1.1 mg/dL (0.3-1.0); Blood Urea Nitrogen 34 mg/dL (8-23); Carbon Dioxide 29 mEq/L (23-29); Chloride 104 mEq/L (98-107); Ethanol < 10 mg/dL (Less than 10); Globulin 3.1 g/dL (2.4-3.5); Glucose 112 mg/dL (70-105); Osmolality,Calculated 302 (280-300); Potassium 4.5 mEq/L (3.5-5.1); Sodium 142 mEq/L (136-145); Total Protein 6.7 g/dL (6.4-8.9); Troponin I 0.12 ng/mL (< 0.04); eGFR For African Americans 51 (> 60); eGFR For Non-African Americans 42 (> 60)
[2021-02-24 17:52] LABS: Hypochromasia Present (Not Present); Ovalocytes 1+ (Not Present); Platelet Estimate Normal (Normal)
[2021-02-24 17:53] LABS: Large Platelets Present (Not Present)
[2021-02-24 18:13] LABS: Bilirubin,Urine Negative (Negative); Blood,Urine Negative (Negative); Clarity,Urine Clear (Clear); Color,Urine Light-Yellow (Yellow); Glucose,Urine (UA) Normal (Normal); Ketones,Urine Negative (Negative); Leukocyte Esterase,Urine Negative (Negative); Nitrite,Urine Negative (Negative); Protein,Urine Trace mg/dL (Neg-Trace); Specific Gravity,Urine 1.015 (1.010-1.025); Urobilinogen,Urine Normal (Normal)
[2021-02-24] MEDS ORDERED: Furosemide 40 MG/4 ML VIAL IVP ONE (18:18)
[2021-02-24] MEDS ORDERED: Ipratropium/Albuterol Neb 3 ML IH ONE (18:19)
[2021-02-24] MEDS ORDERED: Albuterol 2.5 MG/3 ML NEBULIZER IH ONE (18:19)
[2021-02-24 18:53] LABS: Influenza A PCR Negative (Negative); Influenza B PCR Negative (Negative); Resp. Syncytial Virus PCR Negative (Negative)
[2021-02-24 18:54] LABS: SARS-CoV-2 by PCR (In House) Negative (Negative)
[2021-02-24] MEDS ORDERED: Naloxone 0.4 MG/ML INJ IVP PRN ×3 (19:45→20:23)
[2021-02-24] MEDS ORDERED: Ondansetron ODT 4 MG TAB.RAPDIS SL PRN (20:23)
[2021-02-24] MEDS ORDERED: *HR* OxyCODONE Immed Rel 5 MG TABLET PO PRN (20:23)
[2021-02-24] MEDS ORDERED: Perflutren Lipid Microsphere 1.3 ML in 0.9 % Sodium Chloride 8.7 ML IVP PRN (20:27)
[2021-02-24 20:56] LABS: Chol/HDL Ratio 5.9 (0-4.9); Cholesterol 195 mg/dL (< 200); HDL Cholesterol 33 mg/dL (40-59); LDL Cholesterol,Calculated 134 mg/dL (< 100); Triglycerides 141 mg/dL (< 150)
[2021-02-24 21:09] LABS: Thyroid Stimulating Hormone 1.782 mcIU/mL (0.340-5.600)
[2021-02-24] MEDS ORDERED: *HR* Dextrose 50 % in Water (Syg) 50 ML SYRINGE IVP PRN (21:58)
[2021-02-24] MEDS ORDERED: D5% in Water 1,000 ML IVC PRN (21:58)
[2021-02-24] MEDS ORDERED: Dextrose Gel 15 GM/37.5 ML TUBE PO PRN ×2 (21:58)
[2021-02-24] MEDS: Insulin LISPRO 300 UNITS/3 ML VIAL SUBQ SCH ×3 (22:09→22:10)
[2021-02-25 01:59] LABS: Basophils % 0.5 %; Eosinophils # 0.1 K/mcL (0.0-0.6); Eosinophils % 0.8 %; Hematocrit 46.4 % (37.5-50.1); Hemoglobin 12.8 g/dL (12.9-16.9); Immature Granulocytes % 0.6 % (0-4); Mean Corpuscular HGB Conc 27.6 g/dL (31.6-35.5); Mean Corpuscular Hemoglobin 23.2 pg (28.0-33.3); Mean Corpuscular Volume 84.2 fL (83.0-100.0); Mean Platelet Volume 10.8 fL (9.4-12.4); Monocytes % 11.5 %; Neutrophils # 6.7 K/mcL (1.6-8.9); Platelet Count 260 K/mcL (140-400); Red Blood Count 5.51 M/mcL (4.19-5.50); Red Cell Distribution Width 18.1 % (11.5-14.5); Segmented Neutrophils % 75.6 %; White Blood Count 8.8 K/mcL (4.3-11.1)
[2021-02-25 02:12] LABS: INR 1.1; Prothrombin Time 12.7 Seconds (9.4-12.1)
[2021-02-25 02:18] LABS: Estimated Average Glucose 194 mg/dl; Hemoglobin A1C 8.4 %
[2021-02-25 02:38] LABS: Albumin 3.5 g/dL (3.5-5.7); Albumin/Globulin Ratio 1.1 (1.1-2.2); Bilirubin,Total 1.2 mg/dL (0.3-1.0); Chol/HDL Ratio 5.5 (0-4.9); Globulin 3.1 g/dL (2.4-3.5); Potassium 4.4 mEq/L (3.5-5.1); Total Protein 6.6 g/dL (6.4-8.9); Troponin I 0.09 ng/mL (< 0.04)
[2021-02-25] MEDS: Ipratropium/Albuterol Neb 3 ML IH PRN ×2 (03:10→17:01)
[2021-02-25] MEDS: *HR* HYDROcodone/Acet 5/325 mg TABLET PO PRN ×2 (03:37→16:00)
[2021-02-25] MEDS: Acetaminophen 325 MG TABLET PO PRN (06:02)
[2021-02-25] MEDS: Aspirin Enteric Coated 325 MG Tablet PO SCH (07:57)
[2021-02-25] MEDS: Insulin LISPRO 300 UNITS/3 ML VIAL SUBQ SCH ×4 (08:05→20:20)
[2021-02-25] MEDS ORDERED: Azithromycin 500 MG in 0.9 % Sodium Chloride 250 ML IVPB SCH (17:00)
[2021-02-25] MEDS ORDERED: cefTRIAXone 1,000 MG in 0.9 % Sodium Chloride Mini Bag 100 ML IVPB SCH (17:00)
[2021-02-25] MEDS: Apixaban 5 MG TABLET PO SCH (20:18)
[2021-02-25] MEDS: Melatonin 3 MG TABLET PO PRN (20:19)
[2021-02-25] MEDS: *HR* OxyCODONE Immed Rel 5 MG TABLET PO PRN (20:19)
[2021-02-25] MEDS: Insulin DETEMIR 100 UNIT/ML X5UNITS SUBQ SCH (20:20)
[2021-02-25] MEDS ORDERED: QUEtiapine Fumarate 25 MG TABLET PO PRN (20:57)
[2021-02-25] MEDS ORDERED: Furosemide 40 MG TABLET PO SCH (21:00)
[2021-02-25] MEDS ORDERED: *HR* LORazepam 0.5 MG TABLET PO ONE (21:23)
[2021-02-26] MEDS ORDERED: *HR* Enoxaparin 40 MG/0.4 ML SYRINGE SQ SCH (06:00)
[2021-02-26] MEDS ORDERED: methylPREDNISolone 125 MG/2 ML VIAL IVP ONE (07:19)
[2021-02-26] MEDS ORDERED: Ipratropium Neb 0.5 MG NEBULIZER IH PRN (07:19)
[2021-02-26] MEDS ORDERED: Furosemide 20 MG/2 ML VIAL IVP ONE ×3 (07:20→07:35)
[2021-02-26] MEDS ORDERED: methylPREDNISolone 125 MG/2 ML VIAL ONE (07:25)
[2021-02-26] MEDS: *HR* Metoprolol 5 MG/5 ML VIAL IVP PRN ×2 (07:26→20:04)
[2021-02-26 07:54] LABS: ABG Base Excess 2 mEq/L (-2 to 3); ABG HCO3 33 mEq/L (21-27); ABG Oxygen Saturation 95 % (95-98); ABG PCO2 83 mmHg (35-45); ABG PH 7.21 pH Units (7.32-7.45); ABG PO2 93 mmHg (85-104); ABG TCO2 36 mEq/L (20-26)
[2021-02-26] MEDS ORDERED: Cefepime HCl 1,000 MG in 0.9 % Sodium Chloride Mini Bag 100 ML IVPB SCH ×2 (08:00→20:00)
[2021-02-26] MEDS ORDERED: Vancomycin 1,750 MG in 0.9 % Sodium Chloride 250 ML IVPB SCH (08:00)
[2021-02-26] MEDS: Ipratropium Neb 0.5 MG NEBULIZER IH SCH ×4 (08:09→20:43)
[2021-02-26] MEDS ORDERED: Vancomycin 1,750 MG/517.5 ML IV.SOLN IVPB ONE (08:20)
[2021-02-26] MEDS: Metoprolol XL (24 HR) Succ 50 MG TAB.ER.24H PO SCH (09:20)
[2021-02-26] MEDS: lisinopriL 5 MG TABLET PO SCH (09:20)
[2021-02-26] MEDS: Insulin LISPRO 300 UNITS/3 ML VIAL SUBQ SCH ×4 (09:21→19:59)
[2021-02-26] MEDS: Apixaban 5 MG TABLET PO SCH ×2 (09:25→19:59)
[2021-02-26] MEDS: Isosorbide MONOnitrate (24 HR) 30 MG TAB.ER.24H PO SCH (09:25)
[2021-02-26] MEDS: Aspirin Enteric Coated 325 MG Tablet PO SCH (09:25)
[2021-02-26 10:52] LABS: Red Blood Count 5.77 M/mcL (4.19-5.50)
[2021-02-26 10:53] LABS: Hematocrit 49.8 % (37.5-50.1); Hemoglobin 13.8 g/dL (12.9-16.9); Mean Corpuscular HGB Conc 27.7 g/dL (31.6-35.5); Mean Corpuscular Hemoglobin 23.9 pg (28.0-33.3); Mean Corpuscular Volume 86.3 fL (83.0-100.0); Mean Platelet Volume 10.3 fL (9.4-12.4); Platelet Count 259 K/mcL (140-400); Red Cell Distribution Width 18.5 % (11.5-14.5); White Blood Count 10.6 K/mcL (4.3-11.1)
[2021-02-26 10:53] LABS: VBG HCO3 31 mEq/L (21-27); VBG PCO2 58 mmHg (41-51); VBG PH 7.34 pH Units (7.32-7.42); VBG PO2 68 mmHg (25-50)
[2021-02-26 11:11] LABS: Calcium 9.2 mg/dL (8.6-10.3); Chol/HDL Ratio 4.8 (0-4.9); Potassium 5.3 mEq/L (3.5-5.1)
[2021-02-26] MEDS: Insulin DETEMIR 100 UNIT/ML X5UNITS SUBQ SCH ×2 (14:57→20:00)
[2021-02-26] MEDS: MethylPREDNISolone 40 MG/ML VIAL IVP SCH ×2 (17:00→23:20)
[2021-02-26] MEDS: Furosemide 40 MG/4 ML VIAL IVP SCH (18:49)
[2021-02-26] MEDS: Cefepime HCl 2,000 MG in 0.9 % Sodium Chloride Mini Bag 100 ML IVPB SCH (19:59)
[2021-02-27] MEDS: Ipratropium Neb 0.5 MG NEBULIZER IH SCH ×7 (00:17→23:56)
[2021-02-27] MEDS: *HR* OxyCODONE Immed Rel 5 MG TABLET PO PRN ×2 (01:42→18:26)
[2021-02-27] MEDS: MethylPREDNISolone 40 MG/ML VIAL IVP SCH ×2 (07:48→16:19)
[2021-02-27] MEDS: lisinopriL 5 MG TABLET PO SCH (07:49)
[2021-02-27] MEDS: Isosorbide MONOnitrate (24 HR) 30 MG TAB.ER.24H PO SCH (07:49)
[2021-02-27] MEDS: Aspirin 81 MG TAB.CHEW PO SCH (07:49)
[2021-02-27] MEDS: Cefepime HCl 2,000 MG in 0.9 % Sodium Chloride Mini Bag 100 ML IVPB SCH ×2 (07:50→21:14)
[2021-02-27] MEDS: Apixaban 5 MG TABLET PO SCH ×2 (07:50→21:05)
[2021-02-27] MEDS: Insulin LISPRO 300 UNITS/3 ML VIAL SUBQ SCH ×4 (07:52→21:06)
[2021-02-27] MEDS: Furosemide 40 MG/4 ML VIAL IVP SCH (07:55)
[2021-02-27 10:09] LABS: Hemoglobin 12.5 g/dL (12.9-16.9); Mean Corpuscular HGB Conc 28.4 g/dL (31.6-35.5); Mean Corpuscular Hemoglobin 23.9 pg (28.0-33.3); Mean Corpuscular Volume 84.3 fL (83.0-100.0); Platelet Count 299 K/mcL (140-400); Red Blood Count 5.22 M/mcL (4.19-5.50); Red Cell Distribution Width 17.6 % (11.5-14.5); White Blood Count 12.2 K/mcL (4.3-11.1)
[2021-02-27 10:10] LABS: VBG PH 7.28 pH Units (7.32-7.42)
[2021-02-27 10:28] LABS: Albumin 3.4 g/dL (3.5-5.7); Albumin/Globulin Ratio 1.1 (1.1-2.2); Bilirubin,Total 0.6 mg/dL (0.3-1.0); Calcium 8.9 mg/dL (8.6-10.3); Globulin 3.2 g/dL (2.4-3.5); Total Protein 6.6 g/dL (6.4-8.9)
[2021-02-27] MEDS ORDERED: Vancomycin 1,500 MG/265 ML IV.SOLN IVPB ONE (11:34)
[2021-02-27] MEDS: Insulin DETEMIR 100 UNIT/ML X5UNITS SUBQ SCH ×2 (11:49→21:06)
[2021-02-27] MEDS: Metoprolol XL (24 HR) Succ 50 MG TAB.ER.24H PO SCH (11:55)
[2021-02-27 12:00] LABS: Lymphocytes # 0.7 K/mcL (0.6-4.6); Neutrophils # 10.5 K/mcL (1.6-8.9)
[2021-02-27 12:01] LABS: Anisocytosis 1+ (Not Present); Hypochromasia Present (Not Present); Platelet Estimate Normal (Normal)
[2021-02-27] MEDS ORDERED: E-Z-PAQUE (BARIUM SULF) SUSP 1 BOTTLE PO ONE (15:03)
[2021-02-27] MEDS ORDERED: E-Z-HD (BARIUM SULF) SUSPENSION PO ONE (15:03)
[2021-02-27 16:29] LABS: VBG HCO3 32 mEq/L (21-27); VBG PCO2 66 mmHg (41-51); VBG PH 7.29 pH Units (7.32-7.42); VBG PO2 146 mmHg (25-50)
[2021-02-28] MEDS: *HR* OxyCODONE Immed Rel 5 MG TABLET PO PRN ×4 (00:31→23:15)
[2021-02-28] MEDS: MethylPREDNISolone 40 MG/ML VIAL IVP SCH ×3 (00:31→16:41)
[2021-02-28] MEDS: Melatonin 3 MG TABLET PO PRN ×2 (00:32→20:02)
[2021-02-28 03:22] LABS: Basophils % 0.1 %
[2021-02-28 03:24] LABS: Hematocrit 44.5 % (37.5-50.1); Hemoglobin 12.3 g/dL (12.9-16.9); Immature Granulocytes % 0.5 % (0-4); Lymphocytes # 0.5 K/mcL (0.6-4.6); Lymphocytes % 3.9 %; Mean Corpuscular HGB Conc 27.6 g/dL (31.6-35.5); Mean Corpuscular Hemoglobin 23.2 pg (28.0-33.3); Mean Corpuscular Volume 83.8 fL (83.0-100.0); Mean Platelet Volume 10.8 fL (9.4-12.4); Monocytes # 0.7 K/mcL (0.0-1.3); Monocytes % 5.5 %; Neutrophils # 11.2 K/mcL (1.6-8.9); Nucleated Red Blood Cells 0.2 /100 WBC (0); Platelet Count 286 K/mcL (140-400); Red Blood Count 5.31 M/mcL (4.19-5.50); Red Cell Distribution Width 17.6 % (11.5-14.5); White Blood Count 12.4 K/mcL (4.3-11.1)
[2021-02-28 03:34] LABS: Albumin 3.4 g/dL (3.5-5.7); Albumin/Globulin Ratio 1.1 (1.1-2.2); Bilirubin,Total 0.5 mg/dL (0.3-1.0); Calcium 8.7 mg/dL (8.6-10.3); Globulin 3.1 g/dL (2.4-3.5); Potassium 5.5 mEq/L (3.5-5.1); Total Protein 6.5 g/dL (6.4-8.9)
[2021-02-28] MEDS: Ipratropium Neb 0.5 MG NEBULIZER IH SCH ×6 (03:46→23:31)
[2021-02-28] MEDS: Aspirin 81 MG TAB.CHEW PO SCH (08:00)
[2021-02-28] MEDS: Isosorbide MONOnitrate (24 HR) 30 MG TAB.ER.24H PO SCH (08:00)
[2021-02-28] MEDS: Apixaban 5 MG TABLET PO SCH ×2 (08:00→20:04)
[2021-02-28] MEDS: Metoprolol XL (24 HR) Succ 50 MG TAB.ER.24H PO SCH (08:00)
[2021-02-28] MEDS: Furosemide 40 MG/4 ML VIAL IVP SCH (08:01)
[2021-02-28] MEDS: Cefepime HCl 2,000 MG in 0.9 % Sodium Chloride Mini Bag 100 ML IVPB SCH ×2 (08:01→20:05)
[2021-02-28] MEDS: Insulin LISPRO 300 UNITS/3 ML VIAL SUBQ SCH ×4 (08:11→19:58)
[2021-02-28 08:37] LABS: Hypochromasia Present (Not Present)
[2021-02-28] MEDS ORDERED: Metoprolol XL (24 HR) Succ 50 MG TAB.ER.24H PO ONE (11:57)
[2021-02-28] MEDS ORDERED: SODIUM ZIRCONIUM CYCLOSILICATE 5 GM POWD.PACK PO ONE (11:58)
[2021-02-28] MEDS: Insulin DETEMIR 100 UNIT/ML X5UNITS SUBQ SCH ×2 (12:11→20:05)
[2021-02-28] MEDS: GuaiFENesin/Dextromethorphan TABLET PO SCH ×2 (12:13→20:04)
[2021-02-28] MEDS ORDERED: Vancomycin 1,500 MG/265 ML IV.SOLN IVPB ONE (13:08)
[2021-02-28] MEDS: Acetaminophen 325 MG TABLET PO PRN (20:04)
[2021-03-01] MEDS: Acetaminophen 325 MG TABLET PO PRN (02:34)
[2021-03-01] MEDS: Ipratropium Neb 0.5 MG NEBULIZER IH SCH ×6 (03:25→23:16)
[2021-03-01 03:51] LABS: Albumin 3.5 g/dL (3.5-5.7); Albumin/Globulin Ratio 1.1 (1.1-2.2); Bilirubin,Total 0.6 mg/dL (0.3-1.0); Calcium 8.9 mg/dL (8.6-10.3); Globulin 3.2 g/dL (2.4-3.5); Hemoglobin 13.1 g/dL (12.9-16.9); Nucleated Red Blood Cells 0.2 /100 WBC (0); Potassium 5.4 mEq/L (3.5-5.1); Total Protein 6.7 g/dL (6.4-8.9)
[2021-03-01 03:53] LABS: Hematocrit 46.8 % (37.5-50.1); Mean Corpuscular Hemoglobin 23.5 pg (28.0-33.3); Mean Platelet Volume 11.2 fL (9.4-12.4); Platelet Count 338 K/mcL (140-400); Red Blood Count 5.57 M/mcL (4.19-5.50); Red Cell Distribution Width 17.8 % (11.5-14.5); White Blood Count 12.7 K/mcL (4.3-11.1)
[2021-03-01] MEDS: GuaiFENesin Liq 200 MG/10 ML UDC PO PRN (04:50)
[2021-03-01] MEDS: *HR* OxyCODONE Immed Rel 5 MG TABLET PO PRN ×3 (05:43→21:22)
[2021-03-01] MEDS: MethylPREDNISolone 40 MG/ML VIAL IVP SCH ×2 (05:43→18:11)
[2021-03-01] MEDS: GuaiFENesin/Dextromethorphan TABLET PO SCH ×2 (07:56→21:22)
[2021-03-01] MEDS: Metoprolol XL (24 HR) Succ 50 MG TAB.ER.24H PO SCH (07:56)
[2021-03-01] MEDS: Apixaban 5 MG TABLET PO SCH ×2 (07:57→21:22)
[2021-03-01] MEDS: Cefepime HCl 2,000 MG in 0.9 % Sodium Chloride Mini Bag 100 ML IVPB SCH ×2 (07:57→21:23)
[2021-03-01] MEDS: Furosemide 40 MG/4 ML VIAL IVP SCH ×2 (07:57→21:22)
[2021-03-01] MEDS: Aspirin 81 MG TAB.CHEW PO SCH (07:57)
[2021-03-01] MEDS: Isosorbide MONOnitrate (24 HR) 30 MG TAB.ER.24H PO SCH (07:57)
[2021-03-01] MEDS: Insulin LISPRO 300 UNITS/3 ML VIAL SUBQ SCH ×4 (07:59→20:43)
[2021-03-01 09:38] LABS: Hypochromasia Present (Not Present); Lymphocytes # 0.5 K/mcL (0.6-4.6); Monocytes # 0.8 K/mcL (0.0-1.3); Neutrophils # 11.4 K/mcL (1.6-8.9); Platelet Estimate Normal (Normal)
[2021-03-01] MEDS: Insulin DETEMIR 100 UNIT/ML X5UNITS SUBQ SCH ×2 (10:16→21:23)
[2021-03-01] MEDS ORDERED: Benzonatate 100 MG CAPSULE PO PRN (12:21)
[2021-03-01] MEDS: *HR* Metoprolol 5 MG/5 ML VIAL IVP PRN (17:08)
[2021-03-01] MEDS: Melatonin 3 MG TABLET PO PRN (21:22)
[2021-03-02] MEDS: GuaiFENesin Liq 200 MG/10 ML UDC PO PRN (01:01)
[2021-03-02] MEDS: *HR* Metoprolol 5 MG/5 ML VIAL IVP PRN ×2 (03:51→20:39)
[2021-03-02] MEDS: Ipratropium Neb 0.5 MG NEBULIZER IH SCH ×5 (03:53→20:04)
[2021-03-02 04:31] LABS: ABG Base Excess -1 mEq/L (-2 to 3); ABG HCO3 30 mEq/L (21-27); ABG Oxygen Saturation 95 % (95-98); ABG PCO2 75 mmHg (35-45); ABG PH 7.21 pH Units (7.32-7.45); ABG PO2 94 mmHg (85-104); ABG TCO2 33 mEq/L (20-26)
[2021-03-02] MEDS ORDERED: Bisacodyl 10 MG RECTAL SUPPOSITORY RC ONE (04:51)
[2021-03-02] MEDS: MethylPREDNISolone 40 MG/ML VIAL IVP SCH ×2 (06:18→16:40)
[2021-03-02] MEDS: *HR* OxyCODONE Immed Rel 5 MG TABLET PO PRN (08:42)
[2021-03-02] MEDS: Furosemide 40 MG/4 ML VIAL IVP SCH (08:43)
[2021-03-02] MEDS: Apixaban 5 MG TABLET PO SCH ×2 (08:44→20:39)
[2021-03-02] MEDS: Cefepime HCl 2,000 MG in 0.9 % Sodium Chloride Mini Bag 100 ML IVPB SCH (08:44)
[2021-03-02] MEDS: Isosorbide MONOnitrate (24 HR) 30 MG TAB.ER.24H PO SCH (08:44)
[2021-03-02] MEDS: GuaiFENesin/Dextromethorphan TABLET PO SCH ×2 (08:44→20:39)
[2021-03-02] MEDS: Aspirin 81 MG TAB.CHEW PO SCH (08:44)
[2021-03-02] MEDS: Insulin LISPRO 300 UNITS/3 ML VIAL SUBQ SCH ×4 (08:44→20:38)
[2021-03-02] MEDS: Metoprolol XL (24 HR) Succ 50 MG TAB.ER.24H PO SCH (08:44)
[2021-03-02 10:36] LABS: Basophils % 0.1 %
[2021-03-02 10:38] LABS: Eosinophils % 0.1 %; Hemoglobin 13.7 g/dL (12.9-16.9); Immature Granulocytes % 0.4 % (0-4); Lymphocytes # 0.9 K/mcL (0.6-4.6); Lymphocytes % 7.4 %; Mean Corpuscular HGB Conc 28.5 g/dL (31.6-35.5); Mean Corpuscular Hemoglobin 23.5 pg (28.0-33.3); Mean Corpuscular Volume 82.3 fL (83.0-100.0); Mean Platelet Volume 11.2 fL (9.4-12.4); Monocytes # 1.6 K/mcL (0.0-1.3); Monocytes % 12.4 %; Platelet Count 355 K/mcL (140-400); Red Blood Count 5.83 M/mcL (4.19-5.50); Red Cell Distribution Width 18.4 % (11.5-14.5); Segmented Neutrophils % 79.6 %; White Blood Count 12.5 K/mcL (4.3-11.1)
[2021-03-02 10:54] LABS: Albumin 3.7 g/dL (3.5-5.7); Albumin/Globulin Ratio 1.1 (1.1-2.2); Bilirubin,Total 0.8 mg/dL (0.3-1.0); Calcium 9.1 mg/dL (8.6-10.3); Globulin 3.3 g/dL (2.4-3.5)
[2021-03-02 11:03] LABS: Anisocytosis 1+ (Not Present); Platelet Estimate Normal (Normal)
[2021-03-02] MEDS: Acetylcysteine 10% 2 ML INHSOL IH SCH ×3 (11:24→20:04)
[2021-03-02] MEDS: Sennosides/Docusate Sodium TABLET PO PRN (14:32)
[2021-03-02] MEDS: Insulin DETEMIR 100 UNIT/ML X5UNITS SUBQ SCH ×2 (14:33→20:39)
[2021-03-02] MEDS ORDERED: Sennosides 8.6 MG TABLET PO PRN (20:29)
[2021-03-02 20:42] LABS: ABG Base Excess 2 mEq/L (-2 to 3); ABG HCO3 27 mEq/L (21-27); ABG Oxygen Saturation 98 % (95-98); ABG PCO2 43 mmHg (35-45); ABG PO2 108 mmHg (85-104); ABG TCO2 28 mEq/L (20-26); Blood Gas Modality avaps; Blood Gas VT 500 cc
[2021-03-03] MEDS ORDERED: *HR* Metoprolol 5 MG/5 ML VIAL IVP ONE (00:13)
[2021-03-03] MEDS: Ipratropium Neb 0.5 MG NEBULIZER IH SCH ×7 (00:13→23:25)
[2021-03-03] MEDS ORDERED: Amiodarone Premix 150 MG/100 ML BAG IVPB ONE (01:33)
[2021-03-03] MEDS ORDERED: Amiodarone Premix 360 MG/200 ML BAG IVC ONE (01:33)
[2021-03-03] MEDS: Acetylcysteine 10% 2 ML INHSOL IH SCH ×3 (03:31→15:33)
[2021-03-03] MEDS: MethylPREDNISolone 40 MG/ML VIAL IVP SCH ×2 (05:33→18:25)
[2021-03-03 06:24] LABS: Calcium 8.9 mg/dL (8.6-10.3); Magnesium 2.7 mg/dL (1.6-2.6); Potassium 5.8 mEq/L (3.5-5.1)
[2021-03-03] MEDS ORDERED: Amiodarone Premix 360 MG/200 ML BAG IVC SCH (07:33)
[2021-03-03] MEDS ORDERED: SODIUM ZIRCONIUM CYCLOSILICATE 5 GM POWD.PACK PO ONE (07:38)
[2021-03-03] MEDS: Insulin LISPRO 300 UNITS/3 ML VIAL SUBQ SCH ×4 (07:41→21:14)
[2021-03-03] MEDS: Aspirin 81 MG TAB.CHEW PO SCH (08:02)
[2021-03-03] MEDS: Metoprolol XL (24 HR) Succ 50 MG TAB.ER.24H PO SCH ×2 (08:02→21:11)
[2021-03-03] MEDS: Apixaban 5 MG TABLET PO SCH ×2 (08:02→21:13)
[2021-03-03] MEDS: GuaiFENesin/Dextromethorphan TABLET PO SCH ×2 (08:03→21:13)
[2021-03-03] MEDS: Isosorbide MONOnitrate (24 HR) 30 MG TAB.ER.24H PO SCH (08:03)
[2021-03-03] MEDS: Insulin DETEMIR 100 UNIT/ML X5UNITS SUBQ SCH ×2 (08:11→21:20)
[2021-03-03] MEDS ORDERED: Metoprolol XL (24 HR) Succ 50 MG TAB.ER.24H PO ONE (10:26)
[2021-03-03] MEDS ORDERED: Torsemide 20 MG TABLET PO SCH (13:15)
[2021-03-03] MEDS: *HR* OxyCODONE Immed Rel 5 MG TABLET PO PRN ×2 (15:05→21:13)
[2021-03-03] MEDS: Acetaminophen 325 MG TABLET PO PRN (18:43)
[2021-03-03 18:44] LABS: Bilirubin,Urine Negative (Negative); Blood,Urine Negative (Negative); Clarity,Urine Clear (Clear); Color,Urine Colorless (Yellow); Glucose,Urine (UA) Normal (Normal); Ketones,Urine Negative (Negative); Leukocyte Esterase,Urine Negative (Negative); Nitrite,Urine Negative (Negative); Protein,Urine Trace mg/dL (Neg-Trace); Specific Gravity,Urine 1.012 (1.010-1.025); Urobilinogen,Urine Normal (Normal)
[2021-03-04] MEDS: Acetaminophen 325 MG TABLET PO PRN (00:15)
[2021-03-04 02:17] LABS: Hematocrit 43.4 % (37.5-50.1); Hemoglobin 12.5 g/dL (12.9-16.9); Mean Corpuscular HGB Conc 28.8 g/dL (31.6-35.5); Mean Corpuscular Hemoglobin 23.6 pg (28.0-33.3); Mean Platelet Volume 11.5 fL (9.4-12.4); Platelet Count 298 K/mcL (140-400); Red Blood Count 5.29 M/mcL (4.19-5.50); Red Cell Distribution Width 17.6 % (11.5-14.5); White Blood Count 10.5 K/mcL (4.3-11.1)
[2021-03-04 02:33] LABS: Magnesium 2.5 mg/dL (1.6-2.6); Potassium 6.1 mEq/L (3.5-5.1)
[2021-03-04] MEDS: Ipratropium Neb 0.5 MG NEBULIZER IH SCH ×6 (03:36→23:37)
[2021-03-04] MEDS: *HR* OxyCODONE Immed Rel 5 MG TABLET PO PRN ×2 (03:53→20:00)
[2021-03-04] MEDS: MethylPREDNISolone 40 MG/ML VIAL IVP SCH (05:30)
[2021-03-04] MEDS: Sennosides/Docusate Sodium TABLET PO PRN (06:09)
[2021-03-04] MEDS ORDERED: Torsemide 20 MG TABLET PO SCH (08:00)
[2021-03-04] MEDS: Aspirin 81 MG TAB.CHEW PO SCH (08:20)
[2021-03-04] MEDS: Metoprolol XL (24 HR) Succ 50 MG TAB.ER.24H PO SCH ×2 (08:20→20:00)
[2021-03-04] MEDS: GuaiFENesin/Dextromethorphan TABLET PO SCH ×2 (08:20→20:01)
[2021-03-04] MEDS: Apixaban 5 MG TABLET PO SCH ×2 (08:21→20:01)
[2021-03-04] MEDS: Isosorbide MONOnitrate (24 HR) 30 MG TAB.ER.24H PO SCH (08:21)
[2021-03-04] MEDS: Insulin DETEMIR 100 UNIT/ML X5UNITS SUBQ SCH ×2 (08:28→20:29)
[2021-03-04] MEDS: Insulin LISPRO 300 UNITS/3 ML VIAL SUBQ SCH ×4 (08:28→20:29)
[2021-03-04] MEDS ORDERED: SODIUM ZIRCONIUM CYCLOSILICATE 5 GM POWD.PACK PO SCH ×2 (09:00→16:30)
[2021-03-04] MEDS ORDERED: Insulin Human Regular 10 UNIT in 0.9 % Sodium Chloride 10 ML IV ONE (12:21)
[2021-03-04] MEDS ORDERED: Calcium Gluconate 1gm/50mL 1 GM/50 ML BAG IVPB ONE (12:21)
[2021-03-04] MEDS ORDERED: D5% in 0.9% NACL 1,000 ML IVC SCH (12:30)
[2021-03-04 14:42] LABS: Calcium 8.9 mg/dL (8.6-10.3); Potassium 5.8 mEq/L (3.5-5.1)
[2021-03-05 02:35] LABS: Hematocrit 43.3 % (37.5-50.1); Hemoglobin 12.6 g/dL (12.9-16.9); Mean Corpuscular HGB Conc 29.1 g/dL (31.6-35.5); Mean Corpuscular Volume 82.5 fL (83.0-100.0); Platelet Count 295 K/mcL (140-400); Red Blood Count 5.25 M/mcL (4.19-5.50); Red Cell Distribution Width 17.6 % (11.5-14.5); White Blood Count 12.5 K/mcL (4.3-11.1)
[2021-03-05 02:53] LABS: Calcium 8.9 mg/dL (8.6-10.3); Potassium 4.8 mEq/L (3.5-5.1)
[2021-03-05] MEDS: Ipratropium Neb 0.5 MG NEBULIZER IH SCH ×5 (03:07→20:03)
[2021-03-05] MEDS: Aspirin 81 MG TAB.CHEW PO SCH (07:43)
[2021-03-05] MEDS: Apixaban 5 MG TABLET PO SCH ×2 (07:43→20:14)
[2021-03-05] MEDS: predniSONE 20 MG TABLET PO SCH (07:43)
[2021-03-05] MEDS: Isosorbide MONOnitrate (24 HR) 30 MG TAB.ER.24H PO SCH (07:43)
[2021-03-05] MEDS: GuaiFENesin/Dextromethorphan TABLET PO SCH ×2 (07:43→20:15)
[2021-03-05] MEDS: Torsemide 20 MG TABLET PO SCH ×2 (07:44→16:45)
[2021-03-05] MEDS: Metoprolol XL (24 HR) Succ 50 MG TAB.ER.24H PO SCH ×2 (07:44→18:42)
[2021-03-05] MEDS: lisinopriL 5 MG TABLET PO SCH (07:45)
[2021-03-05] MEDS: Insulin DETEMIR 100 UNIT/ML X5UNITS SUBQ SCH ×2 (07:48→20:16)
[2021-03-05] MEDS: Insulin LISPRO 300 UNITS/3 ML VIAL SUBQ SCH ×4 (07:52→20:15)
[2021-03-05] MEDS: *HR* OxyCODONE Immed Rel 5 MG TABLET PO PRN ×2 (10:11→20:15)
[2021-03-05] MEDS: Acetaminophen 325 MG TABLET PO PRN (11:17)
[2021-03-05 13:12] LABS: Potassium 5.4 mEq/L (3.5-5.1)
[2021-03-05] MEDS: *HR* Metoprolol 5 MG/5 ML VIAL IVP PRN (16:14)
[2021-03-05] MEDS: Melatonin 3 MG TABLET PO PRN (20:15)
[2021-03-06] MEDS: Ipratropium Neb 0.5 MG NEBULIZER IH SCH ×3 (00:11→08:01)
[2021-03-06 04:58] LABS: Hematocrit 46.1 % (37.5-50.1); Mean Corpuscular HGB Conc 28.2 g/dL (31.6-35.5); Mean Corpuscular Hemoglobin 23.2 pg (28.0-33.3); Mean Corpuscular Volume 82.2 fL (83.0-100.0); Mean Platelet Volume 11.1 fL (9.4-12.4); Platelet Count 353 K/mcL (140-400); Red Blood Count 5.61 M/mcL (4.19-5.50); Red Cell Distribution Width 18.2 % (11.5-14.5); White Blood Count 13.5 K/mcL (4.3-11.1)
[2021-03-06 05:17] LABS: Calcium 9.1 mg/dL (8.6-10.3); Potassium 4.7 mEq/L (3.5-5.1)
[2021-03-06] MEDS: *HR* OxyCODONE Immed Rel 5 MG TABLET PO PRN ×3 (05:25→21:27)
[2021-03-06] MEDS: Aspirin 81 MG TAB.CHEW PO SCH (08:24)
[2021-03-06] MEDS: GuaiFENesin/Dextromethorphan TABLET PO SCH ×2 (08:24→19:42)
[2021-03-06] MEDS: Metoprolol XL (24 HR) Succ 50 MG TAB.ER.24H PO SCH ×2 (08:24→19:42)
[2021-03-06] MEDS: Insulin LISPRO 300 UNITS/3 ML VIAL SUBQ SCH ×4 (08:24→21:27)
[2021-03-06] MEDS: Insulin DETEMIR 100 UNIT/ML X5UNITS SUBQ SCH ×2 (08:24→21:27)
[2021-03-06] MEDS: Apixaban 5 MG TABLET PO SCH ×2 (08:25→19:42)
[2021-03-06] MEDS: lisinopriL 5 MG TABLET PO SCH (08:25)
[2021-03-06] MEDS: Torsemide 20 MG TABLET PO SCH (08:25)
[2021-03-06] MEDS: predniSONE 20 MG TABLET PO SCH (08:26)
[2021-03-06] MEDS: Isosorbide MONOnitrate (24 HR) 30 MG TAB.ER.24H PO SCH (08:26)
[2021-03-06] MEDS: Sennosides/Docusate Sodium TABLET PO SCH ×2 (11:23→19:43)
[2021-03-06] MEDS: Furosemide 40 MG TABLET PO SCH (16:58)
[2021-03-06] MEDS: Melatonin 3 MG TABLET PO PRN (19:42)
[2021-03-06] MEDS: Acetaminophen 325 MG TABLET PO PRN (19:45)
[2021-03-07 03:20] LABS: Hematocrit 44.3 % (37.5-50.1); Hemoglobin 12.9 g/dL (12.9-16.9); Mean Corpuscular HGB Conc 29.1 g/dL (31.6-35.5); Mean Corpuscular Hemoglobin 24.1 pg (28.0-33.3); Mean Corpuscular Volume 82.8 fL (83.0-100.0); Mean Platelet Volume 11.2 fL (9.4-12.4); Platelet Count 343 K/mcL (140-400); Red Blood Count 5.35 M/mcL (4.19-5.50); Red Cell Distribution Width 18.1 % (11.5-14.5); White Blood Count 14.3 K/mcL (4.3-11.1)
[2021-03-07 03:38] LABS: Calcium 8.7 mg/dL (8.6-10.3); Magnesium 2.2 mg/dL (1.6-2.6); Potassium 5.1 mEq/L (3.5-5.1)
[2021-03-07] MEDS: *HR* OxyCODONE Immed Rel 5 MG TABLET PO PRN ×3 (04:52→20:13)
[2021-03-07] MEDS: Aspirin 81 MG TAB.CHEW PO SCH (07:23)
[2021-03-07] MEDS: Apixaban 5 MG TABLET PO SCH ×2 (07:23→20:12)
[2021-03-07] MEDS: predniSONE 20 MG TABLET PO SCH (07:24)
[2021-03-07] MEDS: Furosemide 40 MG TABLET PO SCH ×2 (07:24→16:30)
[2021-03-07] MEDS: Isosorbide MONOnitrate (24 HR) 30 MG TAB.ER.24H PO SCH (07:24)
[2021-03-07] MEDS: GuaiFENesin/Dextromethorphan TABLET PO SCH ×2 (07:24→20:12)
[2021-03-07] MEDS: Metoprolol XL (24 HR) Succ 50 MG TAB.ER.24H PO SCH ×2 (07:24→20:12)
[2021-03-07] MEDS: lisinopriL 5 MG TABLET PO SCH (07:25)
[2021-03-07] MEDS: Sennosides/Docusate Sodium TABLET PO SCH ×2 (07:26→20:12)
[2021-03-07] MEDS: Insulin LISPRO 300 UNITS/3 ML VIAL SUBQ SCH ×4 (07:26→20:14)
[2021-03-07] MEDS: Insulin DETEMIR 100 UNIT/ML X5UNITS SUBQ SCH ×2 (07:30→20:13)
[2021-03-07] MEDS: SODIUM ZIRCONIUM CYCLOSILICATE 5 GM POWD.PACK PO SCH (08:58)
[2021-03-07] MEDS ORDERED: Furosemide 20 MG/2 ML VIAL IVP ONE (09:57)
[2021-03-08] MEDS: *HR* OxyCODONE Immed Rel 5 MG TABLET PO PRN ×3 (03:09→15:35)
[2021-03-08 04:33] LABS: Mean Corpuscular Volume 83.1 fL (83.0-100.0); Mean Platelet Volume 10.8 fL (9.4-12.4)
[2021-03-08 04:34] LABS: Hematocrit 47.6 % (37.5-50.1); Hemoglobin 13.3 g/dL (12.9-16.9); Mean Corpuscular HGB Conc 27.9 g/dL (31.6-35.5); Mean Corpuscular Hemoglobin 23.2 pg (28.0-33.3); Platelet Count 325 K/mcL (140-400); Red Blood Count 5.73 M/mcL (4.19-5.50); Red Cell Distribution Width 18.5 % (11.5-14.5); White Blood Count 13.6 K/mcL (4.3-11.1)
[2021-03-08 04:50] LABS: Calcium 8.8 mg/dL (8.6-10.3); Magnesium 2.2 mg/dL (1.6-2.6); Phosphorous 3.7 mg/dL (2.7-4.5); Potassium 4.8 mEq/L (3.5-5.1)
[2021-03-08] MEDS: Metoprolol XL (24 HR) Succ 50 MG TAB.ER.24H PO SCH (08:45)
[2021-03-08] MEDS: GuaiFENesin/Dextromethorphan TABLET PO SCH (08:45)
[2021-03-08] MEDS: predniSONE 20 MG TABLET PO SCH (08:45)
[2021-03-08] MEDS: Isosorbide MONOnitrate (24 HR) 30 MG TAB.ER.24H PO SCH (08:45)
[2021-03-08] MEDS: Sennosides/Docusate Sodium TABLET PO SCH (08:46)
[2021-03-08] MEDS: SODIUM ZIRCONIUM CYCLOSILICATE 5 GM POWD.PACK PO SCH (08:46)
[2021-03-08] MEDS: Furosemide 40 MG TABLET PO SCH (08:46)
[2021-03-08] MEDS: Aspirin 81 MG TAB.CHEW PO SCH (08:46)
[2021-03-08] MEDS: Apixaban 5 MG TABLET PO SCH (08:46)
[2021-03-08] MEDS: Insulin LISPRO 300 UNITS/3 ML VIAL SUBQ SCH ×2 (08:47→14:40)
[2021-03-08] MEDS: Insulin DETEMIR 100 UNIT/ML X5UNITS SUBQ SCH (08:54)
[2021-03-08 12:14] LABS: Adenovirus Not Detected (Not Detect); Bordetella Pertussis Not Detected (Not Detect); Chlamydophila pneumoniae Not Detected (Not Detect); Coronavirus 229E Not Detected (Not Detect); Coronavirus HKU1 Not Detected (Not Detect); Coronavirus NL63 Not Detected (Not Detect); Coronavirus OC43 Not Detected (Not Detect); Human Metapneumovirus Not Detected (Not Detect); Human Rhinovirus/Enterovirus Not Detected (Not Detect); Influenza A Subtype 2009 H1 Not Detected (Not Detect); Influenza B Not Detected (Not Detect); Mycoplasma pneumoniae Not Detected (Not Detect); Parainfluenza Virus 1 Not Detected (Not Detect); Parainfluenza Virus 2 Not Detected (Not Detect); Parainfluenza Virus 3 Not Detected (Not Detect); Parainfluenza Virus 4 Not Detected (Not Detect); Respiratory Syncytial Virus Not Detected (Not Detect); SARS-CoV-2 Not Detected (Not Detect)
[2021-03-08 13:55] VITALS: BP 107/81; PULSE 107; TEMP 97.6; O2SAT 99
[2021-03-08] MEDS ORDERED: Furosemide 40 MG/4 ML VIAL IVP ONE (17:00)
== END 2021-03-08 15:51 | DRG 64 ==
LOC: 3BNU 16:31 → EMEROOARM 16:31 → SUATTDRO 20:07 → 3BNU 21:00 → SUATTDRO 02-25 17:46 → 2NENU 02-26 08:58
PROVIDERS: ADMIT Internal Medicine; ATTEND Student in an Organized Health Care Education/Training Program

== ENCOUNTER 2021-04-11 18:55 | Inpatient (IN) ==
[2021-04-11] MEDS ORDERED: Naloxone 0.4 MG/ML INJ IVP PRN (22:34)
[2021-04-11] MEDS ORDERED: Ondansetron 4 MG/2 ML VIAL IVP PRN (22:34)
[2021-04-11] MEDS ORDERED: Dextrose Gel 15 GM/37.5 ML TUBE PO PRN ×2 (22:41)
[2021-04-11] MEDS ORDERED: D5% in Water 1,000 ML IVC PRN (22:41)
[2021-04-11] MEDS ORDERED: *HR* Dextrose 50 % in Water (Syg) 50 ML SYRINGE IVP PRN (22:41)
[2021-04-11] MEDS ORDERED: *HR* Heparin 5,000 UNIT/ML VIAL IVP ONE (23:37)
[2021-04-11] MEDS ORDERED: *HR* Heparin 5,000 UNIT/ML VIAL IVP PRN ×2 (23:37)
[2021-04-12 00:24] LABS: Bilirubin,Urine Negative (Negative); Blood,Urine Negative (Negative); Clarity,Urine Clear (Clear); Color,Urine Light-Yellow (Yellow); Glucose,Urine (UA) Normal (Normal); Ketones,Urine Negative (Negative); Leukocyte Esterase,Urine Negative (Negative); Nitrite,Urine Negative (Negative); PH,Urine 5.5 pH Units (5.0-8.0); Protein,Urine Trace mg/dL (Neg-Trace); Specific Gravity,Urine 1.017 (1.010-1.025); Urobilinogen,Urine Normal (Normal)
[2021-04-12] MEDS: Heparin 25,000UNIT/250ML 1/2NS 25,000 UNIT/250 ML IV.SOLN IVC SCH (00:24)
[2021-04-12] MEDS: Insulin LISPRO 300 UNITS/3 ML VIAL SUBQ SCH ×5 (00:25→16:07)
[2021-04-12 00:32] LABS: Immature Granulocytes % 0.8 % (0-4); Segmented Neutrophils % 70.6 %
[2021-04-12 00:33] LABS: Basophils % 0.3 %; Eosinophils # 0.1 K/mcL (0.0-0.6); Eosinophils % 0.8 %; Hematocrit 39.6 % (37.5-50.1); Hemoglobin 11.6 g/dL (12.9-16.9); Lymphocytes # 1.8 K/mcL (0.6-4.6); Lymphocytes % 17.6 %; Mean Corpuscular HGB Conc 29.3 g/dL (31.6-35.5); Mean Corpuscular Hemoglobin 24.4 pg (28.0-33.3); Mean Corpuscular Volume 83.4 fL (83.0-100.0); Mean Platelet Volume 10.4 fL (9.4-12.4); Monocytes % 9.9 %; Neutrophils # 7.3 K/mcL (1.6-8.9); Nucleated Red Blood Cells 0.2 /100 WBC (0); Platelet Count 226 K/mcL (140-400); Red Blood Count 4.75 M/mcL (4.19-5.50); White Blood Count 10.4 K/mcL (4.3-11.1)
[2021-04-12] MEDS ORDERED: Perflutren Lipid Microsphere 1.3 ML in 0.9 % Sodium Chloride 8.7 ML IVP PRN (00:38)
[2021-04-12 00:42] LABS: INR 1.3; Prothrombin Time 14.2 Seconds (9.4-12.1)
[2021-04-12 00:54] LABS: Albumin 3.3 g/dL (3.5-5.7); Bilirubin,Direct 0.1 mg/dL (0.0-0.2); Bilirubin,Indirect 0.5 mg/dL (0.0-1.0); Bilirubin,Total 0.6 mg/dL (0.3-1.0); Globulin 3.2 g/dL (2.4-3.5); Magnesium 1.8 mg/dL (1.6-2.6); Phosphorous 3.5 mg/dL (2.7-4.5); Potassium 4.3 mEq/L (3.5-5.1); Total Protein 6.5 g/dL (6.4-8.9)
[2021-04-12 01:28] LABS: Hypochromasia Present (Not Present)
[2021-04-12 01:29] LABS: Anisocytosis 1+ (Not Present); Platelet Estimate Normal (Normal)
[2021-04-12] MEDS: *HR* Metoprolol 5 MG/5 ML VIAL IVP PRN ×2 (01:49→07:39)
[2021-04-12] MEDS: Acetaminophen 325 MG TABLET PO PRN (03:50)
[2021-04-12] MEDS ORDERED: Furosemide 40 MG/4 ML VIAL IVP ONE (06:50)
[2021-04-12] MEDS: Metoprolol XL (24 HR) Succ 50 MG TAB.ER.24H PO SCH ×4 (07:58→20:30)
[2021-04-12] MEDS: Sennosides/Docusate Sodium TABLET PO SCH (09:22)
[2021-04-12] MEDS: Aspirin Enteric Coated 81 MG Tablet PO SCH (11:54)
[2021-04-12] MEDS: Furosemide 40 MG/4 ML VIAL IVP SCH ×2 (16:07→20:30)
[2021-04-13] MEDS: Heparin 25,000UNIT/250ML 1/2NS 25,000 UNIT/250 ML IV.SOLN IVC SCH (02:57)
[2021-04-13 05:48] LABS: Basophils % 0.4 %; Eosinophils # 0.1 K/mcL (0.0-0.6); Eosinophils % 1.2 %; Hematocrit 37.8 % (37.5-50.1); Hemoglobin 10.6 g/dL (12.9-16.9); Immature Granulocytes % 0.9 % (0-4); Lymphocytes # 2.3 K/mcL (0.6-4.6); Mean Corpuscular Hemoglobin 23.6 pg (28.0-33.3); Mean Platelet Volume 10.6 fL (9.4-12.4); Monocytes # 0.9 K/mcL (0.0-1.3); Monocytes % 11.1 %; Neutrophils # 4.7 K/mcL (1.6-8.9); Platelet Count 198 K/mcL (140-400); Red Cell Distribution Width 19.8 % (11.5-14.5); Segmented Neutrophils % 58.4 %; White Blood Count 8.1 K/mcL (4.3-11.1)
[2021-04-13 06:01] LABS: Calcium 9.2 mg/dL (8.6-10.3); Magnesium 1.9 mg/dL (1.6-2.6); Phosphorous 3.6 mg/dL (2.7-4.5); Potassium 4.5 mEq/L (3.5-5.1)
[2021-04-13] MEDS: Insulin LISPRO 300 UNITS/3 ML VIAL SUBQ SCH ×3 (07:10→16:20)
[2021-04-13 07:31] LABS: Anisocytosis 1+ (Not Present); Platelet Estimate Normal (Normal)
[2021-04-13] MEDS: Aspirin Enteric Coated 81 MG Tablet PO SCH (07:40)
[2021-04-13] MEDS: Metoprolol XL (24 HR) Succ 50 MG TAB.ER.24H PO SCH ×2 (07:40→20:34)
[2021-04-13] MEDS: Sennosides/Docusate Sodium TABLET PO SCH (07:41)
[2021-04-13] MEDS: Furosemide 40 MG/4 ML VIAL IVP SCH (07:41)
[2021-04-13] MEDS: Acetaminophen 325 MG TABLET PO PRN (12:44)
[2021-04-13] MEDS: Furosemide 20 MG/2 ML VIAL IVP SCH (20:15)
[2021-04-14 01:22] LABS: Basophils % 0.4 %; Eosinophils # 0.1 K/mcL (0.0-0.6); Eosinophils % 1.6 %; Hemoglobin 11.2 g/dL (12.9-16.9); Immature Granulocytes % 1.1 % (0-4); Lymphocytes # 2.2 K/mcL (0.6-4.6); Lymphocytes % 29.5 %; Mean Corpuscular HGB Conc 28.7 g/dL (31.6-35.5); Mean Corpuscular Volume 83.7 fL (83.0-100.0); Mean Platelet Volume 11.4 fL (9.4-12.4); Monocytes # 0.8 K/mcL (0.0-1.3); Neutrophils # 4.3 K/mcL (1.6-8.9); Platelet Count 213 K/mcL (140-400); Red Blood Count 4.66 M/mcL (4.19-5.50); Segmented Neutrophils % 57.4 %; White Blood Count 7.5 K/mcL (4.3-11.1)
[2021-04-14 01:40] LABS: Calcium 9.1 mg/dL (8.6-10.3); Magnesium 2.3 mg/dL (1.6-2.6); Phosphorous 4.8 mg/dL (2.7-4.5); Potassium 4.6 mEq/L (3.5-5.1)
[2021-04-14] MEDS: Heparin 25,000UNIT/250ML 1/2NS 25,000 UNIT/250 ML IV.SOLN IVC SCH (05:02)
[2021-04-14] MEDS: Aspirin Enteric Coated 81 MG Tablet PO SCH (07:53)
[2021-04-14] MEDS: Furosemide 20 MG/2 ML VIAL IVP SCH ×2 (07:54→20:26)
[2021-04-14] MEDS: lisinopriL 5 MG TABLET PO SCH (07:54)
[2021-04-14] MEDS: Sennosides/Docusate Sodium TABLET PO SCH (07:54)
[2021-04-14] MEDS: Metoprolol XL (24 HR) Succ 50 MG TAB.ER.24H PO SCH ×3 (07:55→20:53)
[2021-04-14] MEDS: Isosorbide MONOnitrate (24 HR) 30 MG TAB.ER.24H PO SCH (07:55)
[2021-04-14] MEDS: Insulin LISPRO 300 UNITS/3 ML VIAL SUBQ SCH ×3 (07:57→16:48)
[2021-04-15] MEDS: Heparin 25,000UNIT/250ML 1/2NS 25,000 UNIT/250 ML IV.SOLN IVC SCH (00:41)
[2021-04-15 04:56] LABS: Basophils % 0.3 %; Eosinophils # 0.2 K/mcL (0.0-0.6); Eosinophils % 2.4 %; Hematocrit 38.4 % (37.5-50.1); Hemoglobin 11.2 g/dL (12.9-16.9); Immature Granulocytes % 0.9 % (0-4); Lymphocytes # 2.3 K/mcL (0.6-4.6); Lymphocytes % 30.4 %; Mean Corpuscular HGB Conc 29.2 g/dL (31.6-35.5); Mean Corpuscular Hemoglobin 24.3 pg (28.0-33.3); Mean Corpuscular Volume 83.3 fL (83.0-100.0); Mean Platelet Volume 11.1 fL (9.4-12.4); Monocytes # 0.7 K/mcL (0.0-1.3); Monocytes % 8.8 %; Neutrophils # 4.3 K/mcL (1.6-8.9); Platelet Count 191 K/mcL (140-400); Red Blood Count 4.61 M/mcL (4.19-5.50); Red Cell Distribution Width 19.6 % (11.5-14.5); Segmented Neutrophils % 57.2 %; White Blood Count 7.6 K/mcL (4.3-11.1)
[2021-04-15 05:08] LABS: Calcium 9.3 mg/dL (8.6-10.3); Magnesium 2.2 mg/dL (1.6-2.6); Phosphorous 4.6 mg/dL (2.7-4.5); Potassium 4.9 mEq/L (3.5-5.1)
[2021-04-15] MEDS: Insulin LISPRO 300 UNITS/3 ML VIAL SUBQ SCH ×3 (07:25→16:15)
[2021-04-15] MEDS: Furosemide 20 MG/2 ML VIAL IVP SCH (08:06)
[2021-04-15] MEDS: Aspirin Enteric Coated 81 MG Tablet PO SCH (08:06)
[2021-04-15] MEDS: lisinopriL 5 MG TABLET PO SCH (08:07)
[2021-04-15] MEDS: Sennosides/Docusate Sodium TABLET PO SCH (08:07)
[2021-04-15] MEDS: Isosorbide MONOnitrate (24 HR) 30 MG TAB.ER.24H PO SCH (08:07)
[2021-04-15] MEDS: Metoprolol XL (24 HR) Succ 50 MG TAB.ER.24H PO SCH ×2 (08:07→21:28)
[2021-04-15] MEDS: Apixaban 5 MG TABLET PO SCH ×2 (12:25→21:28)
[2021-04-15] MEDS: Morphine Sulfate Oral CONC 10 MG/0.5 ML ORAL.SYG SL PRN (21:29)
[2021-04-16 01:54] LABS: Basophils % 0.4 %; Eosinophils # 0.2 K/mcL (0.0-0.6); Hematocrit 37.1 % (37.5-50.1); Hemoglobin 10.8 g/dL (12.9-16.9); Lymphocytes # 2.2 K/mcL (0.6-4.6); Lymphocytes % 27.5 %; Mean Corpuscular HGB Conc 29.1 g/dL (31.6-35.5); Mean Corpuscular Hemoglobin 24.5 pg (28.0-33.3); Mean Corpuscular Volume 84.3 fL (83.0-100.0); Mean Platelet Volume 10.6 fL (9.4-12.4); Monocytes # 0.9 K/mcL (0.0-1.3); Neutrophils # 4.6 K/mcL (1.6-8.9); Platelet Count 191 K/mcL (140-400); Red Cell Distribution Width 19.6 % (11.5-14.5); Segmented Neutrophils % 58.1 %; White Blood Count 7.9 K/mcL (4.3-11.1)
[2021-04-16 02:12] LABS: Calcium 8.7 mg/dL (8.6-10.3); Magnesium 2.2 mg/dL (1.6-2.6); Phosphorous 4.3 mg/dL (2.7-4.5); Potassium 4.9 mEq/L (3.5-5.1)
[2021-04-16] MEDS: Acetaminophen 325 MG TABLET PO PRN (07:23)
[2021-04-16] MEDS: Insulin LISPRO 300 UNITS/3 ML VIAL SUBQ SCH ×3 (07:43→16:57)
[2021-04-16] MEDS: Apixaban 5 MG TABLET PO SCH ×2 (09:16→20:21)
[2021-04-16] MEDS: Metoprolol XL (24 HR) Succ 50 MG TAB.ER.24H PO SCH ×2 (09:16→20:21)
[2021-04-16] MEDS: lisinopriL 5 MG TABLET PO SCH (09:17)
[2021-04-16] MEDS: Sennosides/Docusate Sodium TABLET PO SCH (09:17)
[2021-04-16] MEDS: Isosorbide MONOnitrate (24 HR) 30 MG TAB.ER.24H PO SCH (09:17)
[2021-04-16] MEDS: Furosemide 20 MG/2 ML VIAL IVP SCH (09:18)
[2021-04-16] MEDS: Ranolazine 500 MG TAB.ER.12H PO SCH ×2 (11:38→20:21)
[2021-04-16] MEDS: Morphine Sulfate Oral CONC 10 MG/0.5 ML ORAL.SYG SL PRN ×3 (13:30→23:24)
[2021-04-17] MEDS: Morphine Sulfate Oral CONC 10 MG/0.5 ML ORAL.SYG SL PRN ×2 (06:10→15:25)
[2021-04-17] MEDS: lisinopriL 5 MG TABLET PO SCH (07:25)
[2021-04-17] MEDS: Metoprolol XL (24 HR) Succ 50 MG TAB.ER.24H PO SCH ×2 (07:26→20:26)
[2021-04-17] MEDS: Apixaban 5 MG TABLET PO SCH ×2 (07:59→20:26)
[2021-04-17] MEDS: Isosorbide MONOnitrate (24 HR) 30 MG TAB.ER.24H PO SCH (08:00)
[2021-04-17] MEDS: Furosemide 20 MG/2 ML VIAL IVP SCH (08:00)
[2021-04-17] MEDS: Insulin LISPRO 300 UNITS/3 ML VIAL SUBQ SCH ×3 (08:00→18:01)
[2021-04-17] MEDS: Ranolazine 500 MG TAB.ER.12H PO SCH ×2 (08:00→20:26)
[2021-04-17] MEDS: Sennosides/Docusate Sodium TABLET PO SCH (08:00)
[2021-04-17] MEDS: polyethylene glycoL 3350 17 GM POWD.PACK PO SCH (12:21)
[2021-04-18] MEDS: polyethylene glycoL 3350 17 GM POWD.PACK PO SCH (08:39)
[2021-04-18] MEDS: Apixaban 5 MG TABLET PO SCH ×2 (08:40→22:02)
[2021-04-18] MEDS: Isosorbide MONOnitrate (24 HR) 30 MG TAB.ER.24H PO SCH (08:40)
[2021-04-18] MEDS: Insulin LISPRO 300 UNITS/3 ML VIAL SUBQ SCH ×3 (08:40→16:47)
[2021-04-18] MEDS: Ranolazine 500 MG TAB.ER.12H PO SCH ×2 (08:40→22:02)
[2021-04-18] MEDS: lisinopriL 5 MG TABLET PO SCH (08:40)
[2021-04-18] MEDS: Morphine Sulfate Oral CONC 10 MG/0.5 ML ORAL.SYG SL PRN ×3 (08:40→22:02)
[2021-04-18] MEDS: Sennosides/Docusate Sodium TABLET PO SCH (08:40)
[2021-04-18] MEDS: Furosemide 20 MG/2 ML VIAL IVP SCH (08:40)
[2021-04-18] MEDS: Metoprolol XL (24 HR) Succ 50 MG TAB.ER.24H PO SCH ×2 (08:41→22:02)
[2021-04-19] MEDS: Furosemide 20 MG/2 ML VIAL IVP SCH (09:16)
[2021-04-19] MEDS: polyethylene glycoL 3350 17 GM POWD.PACK PO SCH (09:17)
[2021-04-19] MEDS: Insulin LISPRO 300 UNITS/3 ML VIAL SUBQ SCH ×3 (09:17→16:21)
[2021-04-19] MEDS: Apixaban 5 MG TABLET PO SCH ×2 (09:18→19:49)
[2021-04-19] MEDS: Morphine Sulfate Oral CONC 10 MG/0.5 ML ORAL.SYG SL PRN ×3 (09:18→17:53)
[2021-04-19] MEDS: lisinopriL 5 MG TABLET PO SCH (09:18)
[2021-04-19] MEDS: Sennosides/Docusate Sodium TABLET PO SCH (09:18)
[2021-04-19] MEDS: Ranolazine 500 MG TAB.ER.12H PO SCH ×2 (09:18→19:50)
[2021-04-19] MEDS: Isosorbide MONOnitrate (24 HR) 30 MG TAB.ER.24H PO SCH (09:18)
[2021-04-19] MEDS: Metoprolol XL (24 HR) Succ 50 MG TAB.ER.24H PO SCH ×2 (09:18→19:50)
[2021-04-19] MEDS: *HR* LORazepam Oral Conc 2 MG/ML SL PRN ×2 (14:51→20:48)
[2021-04-19] MEDS ORDERED: diazePAM 10 MG/2 ML SYRINGE IVP ONE (20:59)
[2021-04-20] MEDS: Morphine Sulfate Oral CONC 10 MG/0.5 ML ORAL.SYG SL PRN ×4 (05:06→18:34)
[2021-04-20] MEDS: *HR* LORazepam Oral Conc 2 MG/ML SL PRN ×3 (05:06→17:23)
[2021-04-20] MEDS: Isosorbide MONOnitrate (24 HR) 30 MG TAB.ER.24H PO SCH (09:45)
[2021-04-20] MEDS: Insulin LISPRO 300 UNITS/3 ML VIAL SUBQ SCH ×3 (09:45→16:36)
[2021-04-20] MEDS: Apixaban 5 MG TABLET PO SCH ×2 (09:45→19:25)
[2021-04-20] MEDS: polyethylene glycoL 3350 17 GM POWD.PACK PO SCH (09:46)
[2021-04-20] MEDS: lisinopriL 5 MG TABLET PO SCH (09:46)
[2021-04-20] MEDS: Ranolazine 500 MG TAB.ER.12H PO SCH ×2 (09:46→19:26)
[2021-04-20] MEDS: Metoprolol XL (24 HR) Succ 50 MG TAB.ER.24H PO SCH ×2 (09:46→19:26)
[2021-04-20] MEDS: Sennosides/Docusate Sodium TABLET PO SCH (09:46)
[2021-04-20] MEDS: Furosemide 20 MG/2 ML VIAL IVP SCH (09:51)
[2021-04-20] MEDS ORDERED: Scopolamine Patch 1.5 MG PATCH.TD72 TD SCH (10:00)
[2021-04-20] MEDS ORDERED: Haloperidol Oral Conc 10 MG/5 ML UDC PO ONE (10:06)
[2021-04-20] MEDS ORDERED: Atropine Sulfate 1% 40 DROP/2 ML BOTTLE SL PRN (16:46)
[2021-04-20 18:48] VITALS: BP 107/64; PULSE 106; TEMP 97.4; O2SAT 88
== END 2021-04-20 19:56 | disposition expired ==
LOC: 2ANU → SUATTDRO 22:34
PROVIDERS: ADMIT General Practice; ATTEND Internal Medicine